=== PATIENT | male | born 1975 | race Caucasian/White ===

== ENCOUNTER 2020-09-29 14:27 | Emergency (ER) | payer OTHER ==
[2020-09-29] MEDS ORDERED: Sodium Chloride 0.9% 1000 ML 1,000 ML IV STA (15:01)
[2020-09-29] MEDS ORDERED: TORAdol 30 mg Injection IV ONE (15:03)
[2020-09-29] MEDS ORDERED: Sodium Chloride 0.9% 1000 ML 1,000 ML ONE (15:10)
[2020-09-29] MEDS ORDERED: TORAdol 30 mg Injection ONE (15:10)
[2020-09-29 15:40] LABS: Hematocrit 42.6 % (42-50); Hemoglobin 13.4 gm/dl (12.5-18.0); Mean Cell Volume 89.5 fl (78-100); Mean Corpuscular Hemoglobin 28.2 pg (26-32); Mean Corpuscular Hgb Concent. 31.5 g/dl (32-36); Mean Platelet Volume 12.4 fl (7.5-11.0); Platelet Count 284 K/mm3 (150-450); Red Blood Count 4.76 M/mm3 (4.1-5.6); Red Cell Distribution Width 14.9 % (11.5-14.0); White Blood Count 16.7 K/mm3 (4.0-10.5)
[2020-09-29 15:45] LABS: PROTIME 11.8 SECONDS (9.4-12.5)
[2020-09-29 15:49] LABS: ALBUMIN 4.3 g/dL (3.5-5.0); ALKALINE PHOSPHATASE 72 U/L (38-126); ANION GAP 14.4 MEQ/L (5-15); BLOOD UREA NITROGEN 13 mg/dL (9-20); CHLORIDE 103 mmol/L (98-107); Calcium 9.6 mg/dL (8.4-10.2); Carbon Dioxide 26 mmol/L (22-30); Creatinine 1 0.83 mg/dL (0.66-1.25); EST GLOMERULAR FILTRATION RATE > 60.0 ML/MIN; Glucose 96 mg/dL (74-106); Potassium 3.9 mmol/L (3.5-5.1); SGOT/AST 25 U/L (17-59); SGPT/ALT 17 U/L (0-50); SODIUM 140 mmol/L (137-145); Total Protein 7.2 g/dL (6.3-8.2)
[2020-09-29 16:51] LABS: ABO TYPING A; Antibody Screen NEGATIVE (NEGATIVE); RH TYPING POSITIVE
[2020-09-29 17:07] LABS: Lymphocytes 15 % (24-44); Monocyte 5 % (0.0-12.0); Neutrophils 80 % (36.-66.); Total Cells Counted 100
[2020-09-29 17:08] LABS: Platelet Estimate NORMAL (NORMAL)
[2020-09-29 17:47] VITALS: BP 111/68
[2020-09-29 18:02] VITALS: PULSE 93; O2SAT 100
[2020-09-29 18:05] LABS: Appearance CLEAR (CLEAR); Bilirubin NEGATIVE (NEGATIVE); Blood NEGATIVE Ery/ul (0-5); Glucose NEGATIVE (NEGATIVE); Ketones NEGATIVE (NEGATIVE); Leukocyte Esterase NEGATIVE (NEGATIVE); Mucus SLIGHT /HPF (NEGATIVE); Nitrite NEGATIVE (NEGATIVE); Protein,Urine Dip NEGATIVE (Negative); Urobilinogen NEGATIVE mg/dL (0-1); WBC 0-2 /HPF (0-5)
--- NOTE | 2020-09-29 18:05 | XRAY ---
Indication: Cough. Blood in stool. Comparison: March 28, 2020. Portable apical lordotic chest remains hyperinflated and clear. Heart not enlarged. Bony thorax intact. No new/acute findings.
--- NOTE | 2020-09-29 18:05 | XRAY ---
Indication: Right abdomen pain 2 weeks. Blood in stool. Multiple contiguous axial images obtained through the abdomen and pelvis without contrast. Comparison: November 07, 2011. Lung bases demonstrates minimal dependent atelectasis. No infiltrate or effusion. Heart is not enlarged. Stomach moderately fluid distended. Noncontrasted bowel loops appear nonobstructed. Normal appendix. No free fluid/air. There is again mild diffuse scattered colonic fecal debris throughout. A few nonobstructing punctate calculi in each kidney. Remaining liver, gallbladder, pancreas, spleen, adrenal glands, kidneys, ureters, bladder, and aorta are unremarkable for noncontrast exam. Osseous structures intact with new moderate L3-L4 degenerative disc disease. Impression: 1. Mild diffuse fecal stasis. 2. Nonobstructing bilateral renal punctate calculi. 3. Remaining CT abdomen/pelvis without contrast exam is negative. Comment: Preliminary interpretation was made by [facility]. No critical discrepancy.
--- NOTE | 2020-09-29 18:15 | ERPHSYRPT ---
- History of Present Illness Time Seen by Provider: 09/29/20 14:55 Historian: patient Exam Limitations: no limitations Patient Subjective Stated Complaint: back pain 3 weeks, bloody stools yesterday Triage Nursing Assessment: pt to ED Physician History: Patient is a 45-year-old male who presents with a complaint of back pain for 3 weeks along with some recent bloody stools. His back pain is worse on the right than the left his stool showed dark blood in the water but bright red blood on the paper. Timing/Duration: today (Woman started today), week(s) (He has had back pain for 3 weeks) Activities at Onset: none Quality: throbbing Abdominal Pain Onset Location: generalized abdomen Severity of Pain-Max: moderate Severity of Pain-Current: moderate Associated Symptoms: back (Pain especially in the right flank) Previous symptoms: no prior history Allergies/Adverse Reactions: acetaminophen [From Darvocet-N 100] Allergy (Mild, Verified 11/01/13 17:56) throat swelling propoxyphene napsylate [From Darvocet-N 100] Allergy (Mild, Verified 11/01/13 17:56) throat swelling sulfamethoxazole [From Bactrim DS] Allergy (Verified 11/01/13 17:56) trimethoprim [From Bactrim DS] Allergy (Verified 11/01/13 17:56) Home Medications: Amphet Asp/Amphet/D-Amphet [Adderall 30 mg Tablet] 30 mg PO DAILY 09/29/20 [History] Dextroamphetamine/Amphetamine [Adderall 10 mg Tablet] 10 mg PO DAILY 09/29/20 [History] Hx Tetanus, Diphtheria Vaccination/Date Given: Yes Hx Influenza Vaccination/Date Given: No Hx Pneumococcal Vaccination/Date Given: No Immunizations Up to Date: No Travel Risk - International Travel Have you traveled outside of the country in past 3 weeks: No - Coronavirus Screening Are you exhibiting any of the following symptoms?: No Close contact with a COVID-19 positive Pt in past 14-21 Days: No - Vaccine Status Have you recieved a Covid-19 vaccination: No - Review of Systems Constitutional: No Fever, No Chills Eyes: No Symptoms Ears, Nose, & Throat: No Symptoms Respiratory: No Cough, No Dyspnea Cardiac: No Chest Pain, No Edema, No Syncope Abdominal/Gastrointestinal: Hematochezia, No Abdominal Pain, No Nausea, No Vomiting, No Diarrhea Genitourinary Symptoms: Flank Pain, No Dysuria Musculoskeletal: Back Pain, No Neck Pain Skin: No Rash Neurological: No Dizziness, No Focal Weakness, No Sensory Changes Psychological: No Symptoms Endocrine: No Symptoms All Other Systems: Reviewed and Negative - Past Medical History Pertinent Past Medical History: Yes Neurological History: Peripheral Neuropathy ENT History: No Pertinent History Cardiac History: No Pertinent History Respiratory History: Asthma Endocrine Medical History: No Pertinent History Musculoskeletal History: Arthritis GI Medical History: No Pertinent History History: No Pertinent History Psycho-Social History: Depression, Other Male Reproductive Disorders: No Pertinent History Other Medical History: DENTAL CARIES/ABSCESS, ADHD - Past Surgical History Past Surgical History: Yes Neuro Surgical History: No Pertinent History Cardiac: No Pertinent History Respiratory: No Pertinent History Gastrointestinal: No Pertinent History Genitourinary: No Pertinent History Musculoskeletal: Orthopedic Surgery Male Surgical History: No Pertinent History Other Surgical History: VASECTOMY, carpal tunnel - Social History Smoking Status: Current every day smoker How long have you smoked: 20 YEARS Exposure to second hand smoke: No Drug Use: none Patient Lives Alone: No - Nursing Vital Signs Nursing Vital Signs: Initial Vital Signs Temperature 98.9 F 09/29/20 14:48 Pulse Rate 65 09/29/20 14:48 Respiratory Rate 18 09/29/20 14:48 Blood Pressure 128/64 09/29/20 14:48 O2 Sat by Pulse Oximetry 100 09/29/20 14:48 Pain Scale Pain Intensity 4 - Physical Exam General Appearance: mild distress, alert Eye Exam: PERRL/EOMI, eyes nml inspection Ears, Nose, Throat Exam: normal ENT inspection, pharynx normal, moist mucous membranes Neck Exam: normal inspection, non-tender, supple, full range of motion Respiratory Exam: normal breath sounds, lungs clear, No respiratory distress Cardiovascular Exam: regular rate/rhythm, normal heart sounds Gastrointestinal/Abdomen Exam: soft, No tenderness, No mass Rectal Exam: other (There are several external hemorrhoids some of which appear to have small bleeding sites.) Back Exam: normal inspection, CVA tenderness, vertebral tenderness, other (In the right flank.) Extremity Exam: normal inspection, normal range of motion, pelvis stable Neurologic Exam: alert, oriented x 3, cooperative, normal mood/affect, nml cerebellar function, sensation nml, No motor deficits Skin Exam: normal color, warm, dry SpO2: 100 - Course Nursing assessment & vital signs reviewed: Yes - CT Exams Abdomen/Pelvis CT Interpretation: Other (CT scan by our radiologist shows mild diffuse fecal stasis nonobstructing bilateral renal punctate calculi and remaining CT abdomen and pelvis without contrast exam is negative there is new moderate degenerative disease at 3 4.) Ordered Tests: Active Orders 24 hr Category Date Time Status ABDOMEN AND PELVIS W/0 CONTRAS [CT] Stat Exams 09/29/20 15:02 Completed CHEST 1 VIEW (PORTABLE) Stat Exams 09/29/20 15:50 Completed CBC W DIFF Stat Lab 09/29/20 15:25 Completed CMP Stat Lab 09/29/20 15:25 Completed FECAL OCCULT BLOOD - SCREENING Stat Lab 09/29/20 15:04 Ordered Lactic Acid Stat Lab 09/29/20 15:25 Completed Manual Differential NC Stat Lab 09/29/20 15:25 Completed PROTIME WITH INR Stat Lab 09/29/20 15:25 Completed UA W/RFX UR CULTURE Stat Lab 09/29/20 17:48 Completed Medication Summary Discontinued Medications Generic Name Dose Route Start Last Admin Trade Name Freq PRN Reason Stop Dose Admin Sodium Chloride 1,000 mls @ 999 mls/hr 09/29/20 15:01 09/29/20 17:54 Sodium Chloride 0.9% 1000 Ml IV 09/29/20 16:01 Infused .Q1H1M STA Infusion Sodium Chloride Confirm 09/29/20 15:10 Sodium Chloride 0.9% 1000 Ml Administered 09/29/20 15:11 Dose 1,000 mls @ ud .ROUTE .STK-MED ONE Ketorolac Tromethamine 30 mg 09/29/20 15:03 09/29/20 15:14 Toradol 30 Mg Injection IV 09/29/20 15:04 30 mg STAT ONE Administration Ketorolac Tromethamine Confirm 09/29/20 15:10 Toradol 30 Mg Injection Administered 09/29/20 15:11 Dose 30 mg .ROUTE .STK-MED ONE Lab/Rad Data: Laboratory Result Diagrams 09/29/20 15:25 09/29/20 15:25 Laboratory Results 09/29/20 09/29/20 09/29/20 Range/Units 17:48 15:25 15:25 WBC (4.0-10.5) K/mm3 RBC (4.1-5.6) M/mm3 Hgb (12.5-18.0) gm/dl Hct (42-50) % MCV (78-100) fl MCH (26-32) pg MCHC (32-36) g/dl RDW (11.5-14.0) % Plt Count (150-450) K/mm3 MPV (7.5-11.0) fl Segmented Neutrophils (36.-66.) % Lymphocytes (Manual) (24-44) % Monocytes (Manual) (0.0-12.0) % Platelet Estimate (NORMAL) RBC Morphology PT 11.8 (9.4-12.5) SECONDS INR 1.00 (0.8-3.0) Sodium (137-145) mmol/L Potassium (3.5-5.1) mmol/L Chloride (98-107) mmol/L Carbon Dioxide (22-30) mmol/L Anion Gap (5-15) MEQ/L BUN (9-20) mg/dL Creatinine (0.66-1.25) mg/dL Estimated GFR ML/MIN Glucose (74-106) mg/dL Lactic Acid (0.4-2.0) Calcium (8.4-10.2) mg/dL Total Bilirubin (0.2-1.3) mg/dL AST (17-59) U/L ALT (0-50) U/L Alkaline Phosphatase (38-126) U/L Serum Total Protein (6.3-8.2) g/dL Albumin (3.5-5.0) g/dL Urine Color YELLOW (YELLOW) Urine Appearance CLEAR (CLEAR) Urine pH 5.0 (5-6) Ur Specific [place] 1.020 (1.005-1.025) Urine Protein NEGATIVE (Negative) Urine Ketones NEGATIVE (NEGATIVE) Urine Blood NEGATIVE (0-5) Lonnie/ul Urine Nitrite NEGATIVE (NEGATIVE) Urine Bilirubin NEGATIVE (NEGATIVE) Urine Urobilinogen NEGATIVE (0-1) mg/dL Ur Leukocyte Esterase NEGATIVE (NEGATIVE) Urine WBC (Auto) 0-2 (0-5) /HPF Urine RBC (Auto) NONE (0-2) /HPF U Epithel Cells (Auto) NONE (FEW) /HPF Urine Bacteria (Auto) NONE (NEGATIVE) /HPF Urine Mucus (Auto) SLIGHT (NEGATIVE) /HPF Urine Culture Reflexed NO (NO) Urine Glucose NEGATIVE (NEGATIVE) mg/dL ABO Group A Rh Factor POSITIVE Antibody Screen NEGATIVE (NEGATIVE) 09/29/20 09/29/20 09/29/20 Range/Units 15:25 15:25 15:25 WBC 16.7 H (4.0-10.5) K/mm3 RBC 4.76 (4.1-5.6) M/mm3 Hgb 13.4 (12.5-18.0) gm/dl Hct 42.6 (42-50) % MCV 89.5 (78-100) fl MCH 28.2 (26-32) pg MCHC 31.5 L (32-36) g/dl RDW 14.9 H (11.5-14.0) % Plt Count 284 (150-450) K/mm3 MPV 12.4 H (7.5-11.0) fl Segmented Neutrophils 80 H (36.-66.) % Lymphocytes (Manual) 15 L (24-44) % Monocytes (Manual) 5 (0.0-12.0) % Platelet Estimate NORMAL (NORMAL) RBC Morphology NORMAL PT (9.4-12.5) SECONDS INR (0.8-3.0) Sodium 140 (137-145) mmol/L Potassium 3.9 (3.5-5.1) mmol/L Chloride 103 (98-107) mmol/L Carbon Dioxide 26 (22-30) mmol/L Anion Gap 14.4 (5-15) MEQ/L BUN 13 (9-20) mg/dL Creatinine 0.83 (0.66-1.25) mg/dL Estimated GFR > 60.0 ML/MIN Glucose 96 (74-106) mg/dL Lactic Acid 1.5 (0.4-2.0) Calcium 9.6 (8.4-10.2) mg/dL Total Bilirubin 0.30 (0.2-1.3) mg/dL AST 25 (17-59) U/L ALT 17 (0-50) U/L Alkaline Phosphatase 72 (38-126) U/L Serum Total Protein 7.2 (6.3-8.2) g/dL Albumin 4.3 (3.5-5.0) g/dL Urine Color (YELLOW) Urine Appearance (CLEAR) Urine pH (5-6) Ur Specific [place] (1.005-1.025) Urine Protein (Negative) Urine Ketones (NEGATIVE) Urine Blood (0-5) Lonnie/ul Urine Nitrite (NEGATIVE) Urine Bilirubin (NEGATIVE) Urine Urobilinogen (0-1) mg/dL Ur Leukocyte Esterase (NEGATIVE) Urine WBC (Auto) (0-5) /HPF Urine RBC (Auto) (0-2) /HPF U Epithel Cells (Auto) (FEW) /HPF Urine Bacteria (Auto) (NEGATIVE) /HPF Urine Mucus (Auto) (NEGATIVE) /HPF Urine Culture Reflexed (NO) Urine Glucose (NEGATIVE) mg/dL ABO Group Rh Factor Antibody Screen (NEGATIVE) - Progress Progress: unchanged - Departure Departure Disposition: Home Clinical Impression: Degenerative disc disease, Bleeding hemorrhoids Condition: Stable Critical Care Time: No Referrals: TIFFANY SHAY [Primary Care Provider] - Instructions: Low Back Pain (DC), Hemorrhoids (DC) Prescriptions: Hydrocortisone 2.5% 30 gm [Anusol-Hc 2.5% Cream 30 gm] 30 gm TP TID 30 Days #1 tube Ciprofloxacin [Cipro 500 MG] 500 mg PO BID #14 tablet Hydrocodone/Acetaminophen [Hydrocodone-Acetamin 10-325 mg] 1 each PO Q6H 3 Days #12 tablet MDD 4
== END 2020-09-29 18:46 | disposition home or self-care (01) ==
LOC: ED 14:27
DX: M51.36 Other intervertebral disc degeneration, lumbar region (principal); K64.9 Unspecified hemorrhoids
CPT/HCPCS: 36415; 71045; 74176; 80053; 81001; 83605; 85025; 85610; 86850; 86900; 86901; 96360; 96374; 99284; J1885

== ENCOUNTER 2020-11-14 23:48 | Emergency (ER) | payer OTHER ==
[2020-11-15 00:19] VITALS: O2SAT 98
[2020-11-15] MEDS ORDERED: TORAdol 30 mg Injection ONE (00:28)
[2020-11-15] MEDS: TORAdol 30 mg Injection IM ONE (00:43)
--- NOTE | 2020-11-15 00:44 | ERPHSYRPT ---
- History of Present Illness Time Seen by Provider: 11/14/20 23:50 Source: patient Exam Limitations: no limitations Patient Subjective Stated Complaint: Patient states " I have been moving all week lifting heavy items and yesterday I started having severe pain in my right arm/" Triage Nursing Assessment: Patient arrived to ED and ambulated back to room without difficulty. Patient A/O times 4. Patient able to follow instructions without difficulty. Patient states he does have Carpel Tunnel in right hand. Patient states when he goes to lift or pull he has sharp dull pains go throughout in right arm. + radial pulse noted to right upper extremity. No swelling noted or bruising or right arm. Patient denies any trauma or injury to arm. Patient able to wiggle all fingers and ROM WNL. Physician History: 45 years old male with history of ADD, bilateral carpal tunnel surgery at wrists presented in the ER with chief complaint of increasing pain right forearm muscles since yesterday. Patient reports he has been moving apartment and has been lifting heavy objects and started to have pain right forearm yesterday with gradual worsening, moderate to severe sharp nature, aggravated with palpation in the forearm muscles but denies any direct trauma or difficulty movements at wrist or elbow. Does have tingly sensations off and on in the hand and has recent fracture fifth digit right hand. Patient reports having similar pains off and on in the past as well with exertion. No weakness in the right upper extremity but what he has from his neuropathy before. Denies any chest pain palpitations or shortness of breath. Occurred: yesterday Quality: sharpness Severity of Pain-Max: moderate Severity of Pain-Current: moderate Extremities Pain Location: forearm: right Modifying Factors: Improves With: immobilization, rest. Worsens With: movement Associated Symptoms: none Allergies/Adverse Reactions: dicyclomine Allergy (Severe, Verified 11/15/20 00:20) Tightness of Throat acetaminophen [From Darvocet-N 100] Allergy (Mild, Verified 11/15/20 00:20) throat swelling propoxyphene napsylate [From Darvocet-N 100] Allergy (Mild, Verified 11/15/20 00:20) throat swelling sulfamethoxazole [From Bactrim DS] Allergy (Verified 11/15/20 00:20) Rash trimethoprim [From Bactrim DS] Allergy (Verified 11/15/20 00:20) Rash Home Medications: Amphet Asp/Amphet/D-Amphet [Adderall 30 mg Tablet] 30 mg PO BREAKFAST 10/11/20 [History] Dextroamphetamine/Amphetamine [Adderall 10 mg Tablet] 10 mg PO EVENING MEAL 10/11/20 [History] Hx Tetanus, Diphtheria Vaccination/Date Given: Yes Hx Influenza Vaccination/Date Given: No Hx Pneumococcal Vaccination/Date Given: No Immunizations Up to Date: Yes Travel Risk - International Travel Have you traveled outside of the country in past 3 weeks: No - Coronavirus Screening Are you exhibiting any of the following symptoms?: No Close contact with a COVID-19 positive Pt in past 14-21 Days: No - Vaccine Status Have you recieved a Covid-19 vaccination: No - Review of Systems Constitutional: No Symptoms Eyes: No Symptoms Ears, Nose, & Throat: No Symptoms Respiratory: No Symptoms Cardiac: No Symptoms Abdominal/Gastrointestinal: No Symptoms Genitourinary Symptoms: No Symptoms Musculoskeletal: Myalgias Skin: No Symptoms Neurological: No Symptoms Psychological: Anxiety Endocrine: No Symptoms Hematologic/Lymphatic: No Symptoms Immunological/Allergic: No Symptoms - Past Medical History Pertinent Past Medical History: Yes Neurological History: Peripheral Neuropathy ENT History: No Pertinent History Cardiac History: No Pertinent History Respiratory History: Asthma Endocrine Medical History: No Pertinent History Musculoskeletal History: Arthritis GI Medical History: No Pertinent History History: No Pertinent History Psycho-Social History: Depression, Other Male Reproductive Disorders: Other Other Medical History: DENTAL CARIES/ABSCESS, ADHD - Past Surgical History Past Surgical History: Yes Neuro Surgical History: No Pertinent History Cardiac: No Pertinent History Respiratory: No Pertinent History Gastrointestinal: No Pertinent History Genitourinary: No Pertinent History Musculoskeletal: Orthopedic Surgery Male Surgical History: No Pertinent History Other Surgical History: HX VASECTOMY, HX Carpal Tunnel - Social History Smoking Status: Current every day smoker How long have you smoked: 35 years Exposure to second hand smoke: Yes Drug Use: none Patient Lives Alone: No - Nursing Vital Signs Nursing Vital Signs: Initial Vital Signs Temperature 98.4 F 11/15/20 00:17 Pulse Rate 103 H 11/15/20 00:17 Respiratory Rate 18 11/15/20 00:17 Blood Pressure 129/96 11/15/20 00:17 O2 Sat by Pulse Oximetry 98 11/15/20 00:17 Pain Scale Pain Intensity 4 - Physical Exam General Appearance: no apparent distress, alert Neck Exam: normal inspection, supple, full range of motion Cardiovascular/Respiratory Exam: chest non-tender, normal breath sounds, regular rate/rhythm Elbow/Forearm Exam: normal inspection, no evidence of injury, normal ROM, soft tissue tenderness (Right forearm muscle tenderness. No bony tenderness.) Wrist Exam: non-tender, no evidence of injury, normal ROM Hand Exam: normal inspection, non-tender, no evidence of injury DTR - Upper Extremity Exam: bicep (R): 2+, bicep (L): 2+, tricep (R): 2+, tricep (L): 2+ Neuro/Tendon Exam: normal sensation, normal motor functions Mental Status Exam: alert, oriented x 3 Skin Exam: normal color SpO2 Interpretation: normal SpO2: 98 O2 Delivery: Room Air Ordered Tests: Medication Summary Discontinued Medications Generic Name Dose Route Start Last Admin Trade Name Domq PRN Reason Stop Dose Admin Ketorolac Tromethamine Confirm 11/15/20 00:28 Toradol 30 Mg Injection Administered 11/15/20 00:29 Dose 30 mg .ROUTE .STK-MED ONE Ketorolac Tromethamine 30 mg 11/15/20 00:42 11/15/20 00:43 Toradol 30 Mg Injection IM 11/15/20 00:43 30 mg STAT ONE Administration - Progress Progress: improved, pain not gone completely, re-examined Progress Note: 11/15/20 00:43 Patient symptoms are more of a musculoskeletal versus neuropathic with carpal tunnel at elbow. Given Toradol, recommended NSAIDs to go home and outpatient follow-up. Do not seem cardiac. No bony tenderness, do not think needs any imaging or work-up and is stable for discharge with outpatient follow-up. Discussed signs symptoms of worsening needing return to ER which he seems understanding. Counseled pt/family regarding: diagnosis, need for follow-up - Departure Departure Disposition: Home Clinical Impression: Right forearm pain Condition: Stable Critical Care Time: No Referrals: TIFFANY SHAY [Primary Care Provider] - Follow Up with PCP/3 days Instructions: Carpal Tunnel Syndrome (DC), Neuropathic Pain Additional Instructions: Take Tylenol/ibuprofen as needed for pain. Avoid exertional activities. Follow-up with your primary care physician for reevaluation. Return to ER for numbness weakness of right hand/wrist/arm. Prescriptions: Ibuprofen 600 mg PO Q6HPRN PRN 10 Days #20 tablet PRN Reason: Pain
[2020-11-15 01:08] VITALS: BP 125/88; PULSE 100
== END 2020-11-15 01:08 | disposition home or self-care (01) ==
LOC: ED 23:48
DX: M79.631 Pain in right forearm (principal); X50.0XXA Overexertion from strenuous movement or load, initial encounter; Y93.9 Activity, unspecified; Y92.9 Unspecified place or not applicable; Y99.9 Unspecified external cause status
CPT/HCPCS: 96372; 99283; J1885

== ENCOUNTER 2020-12-05 21:26 | Emergency (ER) | payer OTHER ==
[2020-12-05 21:55] VITALS: O2SAT 98
[2020-12-05] MEDS ORDERED: TORAdol 30 mg Injection ONE (22:24)
[2020-12-05] MEDS ORDERED: TORAdol 30 mg Injection IM ONE (22:24)
--- NOTE | 2020-12-05 22:24 | ERPHSYRPT ---
- History of Present Illness Time Seen by Provider: 12/05/20 21:55 Source: patient Exam Limitations: no limitations Patient Subjective Stated Complaint: pt states "I rolled my ankle on a carpet log." Triage Nursing Assessment: pt ambulated into the er; pt is axo x4; c/o left ankle injury; pt states 10/10 pain to left ankle; pt states that he rolled his ankle; left ankle is swollen and tender; good cap refill to LLE; strong pedal pulse to left foot; tachycardic Physician History: Patient is a 45-year-old male presents to our ED for evaluation of left ankle pain. Patient states he descended steps and rolled his left ankle. Injury occurred just prior to arrival. Pain rated 10 out of 10. Pain described as an ache that is well localized. No radiation. Pain worse with weightbearing and palpation. Pain improved with rest. No other injuries reported. Patient otherwise healthy. He voices no other complaints or concerns at this time. Method of Injury: twisted Occurred: just prior to arrival Quality: constant Severity of Pain-Max: moderate Severity of Pain-Current: mild Lower Extremities Pain: ankle: left Modifying Factors: Improves With: movement Associated Symptoms: none Allergies/Adverse Reactions: dicyclomine Allergy (Severe, Verified 12/05/20 21:46) Tightness of Throat acetaminophen [From Darvocet-N 100] Allergy (Mild, Verified 12/05/20 21:46) throat swelling propoxyphene napsylate [From Darvocet-N 100] Allergy (Mild, Verified 12/05/20 21:46) throat swelling sulfamethoxazole [From Bactrim DS] Allergy (Verified 12/05/20 21:46) Rash trimethoprim [From Bactrim DS] Allergy (Verified 12/05/20 21:46) Rash Hx Tetanus, Diphtheria Vaccination/Date Given: Yes Hx Influenza Vaccination/Date Given: No Hx Pneumococcal Vaccination/Date Given: No Travel Risk - International Travel Have you traveled outside of the country in past 3 weeks: No - Coronavirus Screening Are you exhibiting any of the following symptoms?: No Close contact with a COVID-19 positive Pt in past 14-21 Days: No - Vaccine Status Have you recieved a Covid-19 vaccination: No - Review of Systems Constitutional: No Symptoms, No Fever, No Chills Eyes: No Symptoms Ears, Nose, & Throat: No Symptoms Respiratory: No Symptoms, No Cough, No Dyspnea Cardiac: No Symptoms, No Chest Pain, No Edema, No Syncope Abdominal/Gastrointestinal: No Symptoms, No Abdominal Pain, No Nausea, No Vomiting, No Diarrhea Genitourinary Symptoms: No Symptoms, No Dysuria Musculoskeletal: No Symptoms, No Back Pain, No Neck Pain Skin: No Symptoms, No Rash Neurological: No Symptoms, No Dizziness, No Focal Weakness, No Sensory Changes Psychological: No Symptoms Endocrine: No Symptoms Hematologic/Lymphatic: No Symptoms Immunological/Allergic: No Symptoms All Other Systems: Reviewed and Negative - Past Medical History Pertinent Past Medical History: Yes Neurological History: Peripheral Neuropathy ENT History: No Pertinent History Cardiac History: No Pertinent History Respiratory History: Asthma Endocrine Medical History: No Pertinent History Musculoskeletal History: Arthritis GI Medical History: No Pertinent History History: No Pertinent History Psycho-Social History: Depression, Other Male Reproductive Disorders: Other Other Medical History: DENTAL CARIES/ABSCESS, ADHD - Past Surgical History Past Surgical History: Yes Neuro Surgical History: No Pertinent History Cardiac: No Pertinent History Respiratory: No Pertinent History Gastrointestinal: No Pertinent History Genitourinary: No Pertinent History Musculoskeletal: Orthopedic Surgery Male Surgical History: No Pertinent History Other Surgical History: HX VASECTOMY, HX Carpal Tunnel - Social History Smoking Status: Current every day smoker How long have you smoked: 35 years Exposure to second hand smoke: Yes Drug Use: none Patient Lives Alone: No - Nursing Vital Signs Nursing Vital Signs: Initial Vital Signs Temperature 98.4 F 12/05/20 21:47 Pulse Rate 114 H 12/05/20 21:47 Respiratory Rate 20 12/05/20 21:47 Blood Pressure 126/89 12/05/20 21:47 O2 Sat by Pulse Oximetry 98 12/05/20 21:47 Pain Scale Pain Intensity 10 - Physical Exam General Appearance: no apparent distress, alert Eyes, Ears, Nose, Throat Exam: moist mucous membranes Neck Exam: non-tender, supple Cardiovascular/Respiratory Exam: chest non-tender, normal breath sounds, regular rate/rhythm, no respiratory distress Gastrointestinal/Abdominal Exam: non-tender, soft, guarding Back Exam: normal inspection, No vertebral tenderness Hips Exam: bilateral: non-tender, normal inspection, normal range of motion, no evidence of injury Legs Exam: bilateral leg: non-tender, normal inspection, normal range of motion, no evidence of injury Knees Exam: bilateral knee: non-tender, normal inspection, normal range of motion, no evidence of injury Ankle Exam: right ankle: non-tender, normal inspection, normal range of motion, no evidence of injury, left ankle: pain, soft tissue tenderness, swelling, other (Left lower extremity neurovascular intact distally. Compartments are soft. Cap refill less than 2 seconds. There is swelling at the lateral malleolus. No open draining lesions.) Foot Exam: bilateral foot: non-tender, normal inspection, normal range of motion, no evidence of injury Neuro/Tendon Exam: normal sensation, normal motor functions Mental Status Exam: alert, oriented x 3, cooperative Skin Exam: normal color, warm, dry SpO2: 98 - Course Nursing assessment & vital signs reviewed: Yes - Radiology Exams Ankle X-ray Interpretation: Interpreted by me (left ankle swelling, no fracture or dislocations) Ordered Tests: Active Orders 24 hr Category Date Time Status Adan Bandage Application -[facility] STAT Care 12/05/20 22:23 Active ANKLE (3 VIEWS) Stat Exams 12/05/20 21:51 Taken - Progress Progress: improved Progress Note: Patient reassessed. Pain improved after administration of Toradol. X-ray is negative for fracture dislocation. There is soft tissue swelling over the lateral malleolus. Extremities neurovascular intact distally. Adan wrap applied. We will discharge patient home. Patient agrees to follow-up with his primary care doctor within 48 hours. [id number] analgesics as needed for pain control. Patient voices no other complaints concerns at this time. Will discharge home. 12/05/20 22:30 Portions of this note were created with voice recognition technology. There may be grammatical, spelling, punctuation or sound alike errors 12/05/20 22:31 Counseled pt/family regarding: diagnosis, need for follow-up, rad results - Departure Departure Disposition: Home Clinical Impression: Ankle sprain Condition: Stable Critical Care Time: No Referrals: TIFFANY SHAY [Primary Care Provider] - Additional Instructions: Discharge/Care Plan DAVINREBEKAHADRIANMAGNOLIASAMANTA YUEN was seen on 12/05/20 in the Emergency Room. The patient was counseled regarding Diagnosis,Lab results, Imaging studies, need for follow up and when to return to the Emergency Room. Prescriptions given: Discharge Note I have spoken with the patient and/or caregivers. I have explained the patient's condition, diagnosis and treatment plan based on the information available to me at this time. I have answered the patient's and/or caregiver's questions and addressed any concerns. The patient and/or caregivers have as good understanding of the patient's diagnosis, condition and treatment plan as can be expected at this point. The vital signs have been stable. The patient's condition is stable and appropriate for discharge from the emergency department. The patient will pursue further outpatient evaluation with the primary care physician or other designated or consulting physician as outlined in the discharge instructions. The patient and/or caregivers are agreeable to this plan of care and follow-up instructions have been explained in detail. The patient and/or caregivers have received these instruction. The patient/and or caregivers are aware that any significant change in condition or worsening of symptoms should prompt an immediate return to this or the closest emergency department or call 911.
[2020-12-05 22:32] VITALS: BP 129/94; PULSE 104
--- NOTE | 2020-12-06 08:44 | XRAY ---
Indication: Pain and swelling following injury. Comparison: None 3 view left ankle demonstrates mild anterolateral soft tissue swelling. Incidental tiny spurring distal tibia anteriorly and posterior calcaneus. No other bony, articular, or soft tissue abnormalities.
== END 2020-12-05 22:36 | disposition home or self-care (01) ==
LOC: ED 21:26
DX: S93.402A Sprain of unspecified ligament of left ankle, initial encounter (principal); M25.472 Effusion, left ankle; X50.1XXA Overexertion from prolonged static or awkward postures, initial encounter; Y93.01 Activity, walking, marching and hiking; Y92.9 Unspecified place or not applicable
CPT/HCPCS: 73610; 96372; 99284; J1885

== ENCOUNTER 2021-01-09 13:58 | Emergency (ER) | payer OTHER ==
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
[2021-01-09 14:11] VITALS: O2SAT 98
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
[2021-01-09 16:51] VITALS: BP 137/86; PULSE 107
== END 2021-01-09 16:51 | disposition home or self-care (01) ==
LOC: ED 13:58
DX: S00.93XA Contusion of unspecified part of head, initial encounter (principal); S00.81XA Abrasion of other part of head, initial encounter; S60.512A Abrasion of left hand, initial encounter; S60.511A Abrasion of right hand, initial encounter; S60.812A Abrasion of left wrist, initial encounter; R51.9 Headache, unspecified; Y04.8XXA Assault by other bodily force, initial encounter
CPT/HCPCS: 70450; 99284

== ENCOUNTER 2021-07-20 10:14 | Emergency (ER) | payer OTHER ==
[2021-07-20] MEDS ORDERED: XYLOCAINE 1%/Epi 1:100000 MDV 20 ML ONE (10:30)
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
[2021-07-20 11:41] VITALS: PULSE 88; O2SAT 98
[2021-07-20] MEDS ORDERED: XYLOCAINE 1%/Epi 1:100000 MDV 20 ML IJ ONE (12:05)
[2021-07-20] MEDS ORDERED: BACIGUENT PACKET TP ONE (12:06)
[2021-07-20] MEDS ORDERED: BACIGUENT PACKET ONE (12:07)
[2021-07-20 12:26] VITALS: BP 130/72
--- NOTE | 2021-07-20 22:26 | XRAY ---
Indication: Mandible laceration. Multiple contiguous axial images obtained through the facial bones. Sagittal and coronal reformatted images obtained. Comparison: None Patient is nearly edentulous. Left mandible soft tissue swelling with tiny subcutaneous emphysema favoring clinical reported laceration. Axial images negative for acute fracture, suspicious bony lesions, or radiopaque foreign body. Orbits including roof, pompa, and floors are intact. Minimal mucosal thickening both ethmoid sinuses. Remaining visualized paranasal sinuses and nasal passages are clear. Mild nasal septal deviation to the right. Visualized cervical spine intact with mild multilevel degenerative changes. Remaining visualized noncontrasted soft tissues including base of the brain unremarkable. Impression: 1. Left mandible soft tissue swelling/laceration. 2. Nasal septal deviation and minimal ethmoid sinus disease. 3. Remaining CT facial bones negative. Comment: Preliminary interpretation made by [facility]. No critical discrepancy.
== END 2021-07-20 12:36 | disposition home or self-care (01) ==
LOC: ED 10:14
DX: S01.81XA Laceration without foreign body of other part of head, initial encounter (principal); W20.8XXA Other cause of strike by thrown, projected or falling object, initial encounter; Y93.H3 Activity, building and construction; Y92.009 Unspecified place in unspecified non-institutional (private) residence as the place of occurrence of the external cause; R68.84 Jaw pain; Z72.0 Tobacco use; Z79.891 Long term (current) use of opiate analgesic
CPT/HCPCS: 12013; 70486; 96372; 99284; A9270-GY

== ENCOUNTER 2021-07-27 11:27 | Emergency (ER) | payer OTHER ==
[2021-07-27 11:39] VITALS: BP 126/78; PULSE 85; O2SAT 99
[2021-07-27] MEDS ORDERED: Ocuflox OPHTHALMIC 5 ML OP ONE (11:45)
[2021-07-27] MEDS ORDERED: Ocuflox OPHTHALMIC 5 ML OP SCH (11:45)
--- NOTE | 2021-07-27 11:46 | ERPHSYRPT ---
- History of Present Illness Time Seen by Provider: 07/27/21 11:30 Source: patient Exam Limitations: no limitations Patient Subjective Stated Complaint: Eye problem Triage Nursing Assessment: Patient ambulated back to ED and transferred to bed per self. Patient A+O X3. Patient's skin pink, warm and dry. Patient complains of marcos eye problems. 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 Patient states he woke up with red eyes that itch. Patient denies any recent injury or trauma. Marcos eyes noted to bed red with no drainage noted. Physician History: 46 years old presented in the ER with chief complaint of bilateral eye redness, matting and some discharge. Patient reports couple days ago he fell and cough feces area and probably got some in the eyes. He washed his really well but later on started to have itching and burning and last night noticed discharge and matting this morning. No obvious difficulty vision but increased light sensitivity. Timing/Duration: day(s) (2), gradual onset, worse Location: bilateral eyes Severity: moderate Apparent Injury: no Associated Symptoms: burning, itching, sensitivity to light, redness, matting, No eyelid swelling Chemical Exposure: No Allergies/Adverse Reactions: dicyclomine Allergy (Severe, Verified 07/27/21 11:32) Tightness of Throat acetaminophen [From Darvocet-N 100] Allergy (Mild, Verified 07/27/21 11:32) throat swelling propoxyphene napsylate [From Darvocet-N 100] Allergy (Mild, Verified 07/27/21 11:32) throat swelling sulfamethoxazole [From Bactrim DS] Allergy (Verified 07/27/21 11:32) Rash trimethoprim [From Bactrim DS] Allergy (Verified 07/27/21 11:32) Rash Hx Tetanus, Diphtheria Vaccination/Date Given: Yes Hx Influenza Vaccination/Date Given: No Hx Pneumococcal Vaccination/Date Given: No Immunizations Up to Date: Yes Travel Risk - International Travel Have you traveled outside of the country in past 3 weeks: No - Coronavirus Screening Are you exhibiting any of the following symptoms?: No Close contact with a COVID-19 positive Pt in past 14-21 Days: No - Vaccine Status Have you recieved a Covid-19 vaccination: No - Review of Systems Constitutional: No Symptoms Eyes: Eye Pain, Eye Redness, Itchy, Photophobia Ears, Nose, & Throat: No Symptoms Respiratory: No Symptoms Cardiac: No Symptoms Abdominal/Gastrointestinal: No Symptoms Musculoskeletal: No Symptoms Skin: No Symptoms Neurological: No Symptoms Endocrine: No Symptoms Hematologic/Lymphatic: No Symptoms - Past Medical History Pertinent Past Medical History: Yes Neurological History: Peripheral Neuropathy ENT History: No Pertinent History Cardiac History: No Pertinent History Respiratory History: Asthma Endocrine Medical History: No Pertinent History Musculoskeletal History: Arthritis GI Medical History: No Pertinent History History: No Pertinent History Psycho-Social History: Depression, Other Male Reproductive Disorders: Other Other Medical History: DENTAL CARIES/ABSCESS, ADHD - Past Surgical History Past Surgical History: Yes Neuro Surgical History: No Pertinent History Cardiac: No Pertinent History Respiratory: No Pertinent History Gastrointestinal: No Pertinent History Genitourinary: No Pertinent History Musculoskeletal: Orthopedic Surgery Male Surgical History: No Pertinent History Other Surgical History: HX VASECTOMY, HX Carpal Tunnel - Social History Smoking Status: Current every day smoker How long have you smoked: 35 years Exposure to second hand smoke: Yes Drug Use: none Patient Lives Alone: No - Nursing Vital Signs Nursing Vital Signs: Initial Vital Signs Temperature 97.9 F 07/27/21 11:33 Pulse Rate 85 07/27/21 11:33 Respiratory Rate 18 07/27/21 11:33 Blood Pressure 126/78 07/27/21 11:33 O2 Sat by Pulse Oximetry 99 07/27/21 11:33 Pain Scale Pain Intensity 0 - Physical Exam General Appearance: no apparent distress, alert, anxiety Vision Acuity Degree Evaluation Phase: Uncorrected Vision Acuity Right Eye: 20/70 Vision Acuity Left Eye: 20/30 Eye Exam: bilateral eye: PERRL, EOMI, conjunctival hemorrhage, conjunctival inflammation Ears, Nose, Throat Exam: normal ENT inspection, TMs normal, pharynx normal, moist mucous membranes Neck Exam: normal inspection, supple, full range of motion Respiratory Exam: normal breath sounds, lungs clear Cardiovascular Exam: regular rate/rhythm, normal heart sounds Extremity Exam: normal inspection, normal range of motion Neurologic: alert, oriented x 3, 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, 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 Outpatient follow-up. Counseled pt/family regarding: diagnosis, need for follow-up - Departure Departure Disposition: Home Clinical Impression: Bacterial conjunctivitis of both eyes Condition: Stable Critical Care Time: No Referrals: TIFFANY SHAY NP [Primary Care Provider] - Follow up/PCP as directed (Call tomorrow for reevaluation) Instructions: Conjunctivitis ([place]) (DC) Additional Instructions: Continue with antibiotic drops as recommended. Follow-up with primary care for reevaluation. Return to ER if having difficulty with vision, increasing redness, discharge, swelling around eyes, fever chills etc.
== END 2021-07-27 11:50 | disposition home or self-care (01) ==
LOC: ED 11:27
DX: H10.89 Other conjunctivitis (principal); Z72.0 Tobacco use
CPT/HCPCS: 99283; A9270-GY

== ENCOUNTER 2021-12-10 07:34 | Emergency (ER) | payer OTHER ==
--- NOTE | 2021-12-10 07:48 | ERPHSYRPT ---
- History of Present Illness Time Seen by Provider: 12/10/21 07:47 Source: patient, family Exam Limitations: no limitations Patient Subjective Stated Complaint: Pt c/o of right flank pain that radiates to the right quadrants Triage Nursing Assessment: Pt brought to the ER by his , hypertensive, rates pain as 10/10, can't get comfortable in the bed, woke with the pain in the middle of the night, pain to right flank that radiates to the right abdomen, denies pain with urination, pain with palpatation to the right flank and right quadrants, pulses normal, skin n/w/d, N&V, no other issues at this time Physician History: This patient is a 46-year-old white male who has a history of depression, asthma and peripheral neuropathy and presents with right flank pain of sudden onset in the middle the night with progressively worsening pain and radiation down to the right lower abdomen. He has never had any like this before. Patient also had associated nausea and vomiting. He denies chest pain. He denies shortness of breath. He has had no diarrhea symptoms. He denies fever. Patient states that he is allergic to the propoxyphene and Darvocet but not necessarily acetaminophen. He has taken [place] in the past. Timing/Duration: today Method of Injury: other (No injury) Quality: aching Back Pain Location: paraspinous muscles (Right flank) Severity of Pain-Max: moderate Severity of Pain-Current: moderate Modifying Factors: Improves With: nothing Associated Symptoms: nausea, vomiting, other (Right flank pain) Previous symptoms: no prior history Allergies/Adverse Reactions: dicyclomine Allergy (Severe, Verified 12/10/21 07:45) Tightness of Throat acetaminophen [From Darvocet-N 100] Allergy (Mild, Verified 12/10/21 07:45) throat swelling propoxyphene napsylate [From Darvocet-N 100] Allergy (Mild, Verified 12/10/21 07:45) throat swelling sulfamethoxazole [From Bactrim DS] Allergy (Verified 12/10/21 07:45) Rash trimethoprim [From Bactrim DS] Allergy (Verified 12/10/21 07:45) Rash Home Medications: Bupropion HCl 150 mg Sr [Wellbutrin SR 150 MG] 150 mg PO BID 12/10/21 [History] Hx Tetanus, Diphtheria Vaccination/Date Given: Yes Hx Influenza Vaccination/Date Given: No Hx Pneumococcal Vaccination/Date Given: No Travel Risk - International Travel Have you traveled outside of the country in past 3 weeks: No - Coronavirus Screening Are you exhibiting any of the following symptoms?: No Close contact with a COVID-19 positive Pt in past 14-21 Days: No - Vaccine Status Have you recieved a Covid-19 vaccination: No - Review of Systems Constitutional: No Symptoms Eyes: No Symptoms Ears, Nose, & Throat: No Symptoms Respiratory: No Symptoms Cardiac: No Symptoms Abdominal/Gastrointestinal: Abdominal Pain (Right lower abdomen) Genitourinary Symptoms: Flank Pain (Right) Musculoskeletal: No Symptoms Skin: No Symptoms Neurological: No Symptoms Psychological: No Symptoms Endocrine: No Symptoms Hematologic/Lymphatic: No Symptoms Immunological/Allergic: No Symptoms All Other Systems: Reviewed and Negative - Past Medical History Pertinent Past Medical History: Yes Neurological History: Peripheral Neuropathy ENT History: No Pertinent History Cardiac History: No Pertinent History Respiratory History: Asthma Endocrine Medical History: No Pertinent History Musculoskeletal History: Arthritis GI Medical History: No Pertinent History History: No Pertinent History Psycho-Social History: Depression, Other Male Reproductive Disorders: Other Other Medical History: DENTAL CARIES/ABSCESS, ADHD - Past Surgical History Past Surgical History: Yes Neuro Surgical History: No Pertinent History Cardiac: No Pertinent History Respiratory: No Pertinent History Gastrointestinal: No Pertinent History Genitourinary: No Pertinent History Musculoskeletal: Orthopedic Surgery Male Surgical History: No Pertinent History Other Surgical History: HX VASECTOMY, HX Carpal Tunnel - Social History Smoking Status: Current every day smoker How long have you smoked: 35 years Exposure to second hand smoke: Yes Drug Use: none Patient Lives Alone: No - Nursing Vital Signs Nursing Vital Signs: Initial Vital Signs Temperature 97.9 F 12/10/21 07:37 Pulse Rate 84 12/10/21 07:37 Blood Pressure 155/103 12/10/21 07:37 O2 Sat by Pulse Oximetry 99 12/10/21 07:37 Pain Scale Pain Intensity [Right Medial 10 Back] Pain Intensity 3 - Physical Exam General Appearance: mild distress, alert, anxiety, thin Eye Exam: PERRL/EOMI, eyes nml inspection Ears, Nose, Throat Exam: normal ENT inspection, moist mucous membranes Neck Exam: normal inspection, non-tender, supple, full range of motion Respiratory Exam: normal breath sounds, lungs clear, No chest tenderness, No respiratory distress Cardiovascular Exam: regular rate/rhythm, normal heart sounds, normal peripheral pulses Gastrointestinal Exam: soft, normal bowel sounds, tenderness (Right lower abdomen), No guarding, No rebound Rectal Exam: not done Back Exam: normal inspection, normal range of motion, CVA tenderness (Right flank) Extremity Exam: normal inspection, normal range of motion, pelvis stable Neurologic Exam: alert, oriented x 3, 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, 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, normal mood/affect, nml cerebellar function, nml station & gait, sensation nml Skin Exam: normal color, warm, dry Lymphatic Exam: No adenopathy SpO2 Interpretation: normal SpO2: 99 O2 Delivery: Room Air - Course Nursing assessment & vital signs reviewed: Yes EKG Interpreted by Me: RATE (96), Sinus Rhythm, NORMAL AXIS, NORMAL INTERVALS, NORMAL QRS, NORMAL ST-T, Other (No acute ischemic changes) Ordered Tests: Active Orders 24 hr Category Date Time Status EKG-ER Only STAT Care 12/10/21 08:02 Active IV Insertion STAT Care 12/10/21 07:48 Active ABDOMEN AND PELVIS W/0 CONTRAS [CT] Stat Exams 12/10/21 07:48 Completed AMYLASE Stat Lab 12/10/21 08:11 Completed CBC W DIFF Stat Lab 12/10/21 08:11 Completed CMP Stat Lab 12/10/21 08:11 Completed CULTURE,URINE Stat Lab 12/10/21 07:51 Received LIPASE Stat Lab 12/10/21 08:11 Completed UA W/RFX CULTURE Stat Lab 12/10/21 07:51 Completed Medication Summary Discontinued Medications Generic Name Dose Route Start Last Admin Trade Name Criselda PRN Reason Stop Dose Admin Hydromorphone HCl 1 mg 12/10/21 07:48 12/10/21 07:53 Hydromorphone 1 Mg/1ml Inj 1 Mg/Ml Syringe IV 12/10/21 07:49 1 mg STAT ONE Administration Hydromorphone HCl Confirm 12/10/21 07:52 Hydromorphone 1 Mg/1ml Inj 1 Mg/Ml Syringe Administered 12/10/21 07:53 Dose 1 mg .ROUTE .STK-MED ONE Sodium Chloride 1,000 mls @ 999 mls/hr 12/10/21 07:48 12/10/21 07:54 Sodium Chloride 0.9% 1000 Ml IV 12/10/21 08:48 999 mls/hr .Q1H1M STA Administration Sodium Chloride Confirm 12/10/21 07:52 Sodium Chloride 0.9% 1000 Ml Administered 12/10/21 07:53 Dose 1,000 mls @ ud .ROUTE .STK-MED ONE Piperacillin Sod/Tazobactam 100 mls @ 200 mls/hr 12/10/21 08:43 12/10/21 09:11 Sod 3.375 gm/ Sodium Chloride IV 12/10/21 09:12 200 mls/hr STAT ONE Administration Sodium Chloride 1,000 mls @ 999 mls/hr 12/10/21 08:48 12/10/21 09:11 Sodium Chloride 0.9% 1000 Ml IV 12/10/21 09:48 999 mls/hr .Q1H1M STA Administration Sodium Chloride Confirm 12/10/21 09:08 Sodium Chloride 0.9% 1000 Ml Administered 12/10/21 09:09 Dose 1,000 mls @ ud .ROUTE .STK-MED ONE Sodium Chloride Confirm 12/10/21 09:10 Sodium Chloride 100ml Mini-Bag Plus Administered 12/10/21 09:11 Dose 100 mls @ ud IV .STK-MED ONE Ketorolac Tromethamine 30 mg 12/10/21 07:48 12/10/21 07:53 Ketorolac Tromethamine 30 Mg/Ml Inj IV 12/10/21 07:49 30 mg STAT ONE Administration Ketorolac Tromethamine Confirm 12/10/21 07:52 Ketorolac Tromethamine 30 Mg/Ml Inj Administered 12/10/21 07:53 Dose 30 mg .ROUTE .STK-MED ONE Ondansetron HCl 4 mg 12/10/21 07:48 12/10/21 07:53 Ondansetron Hcl 4 Mg/2 Ml Vial IV 12/10/21 07:49 4 mg STAT ONE Administration Ondansetron HCl Confirm 12/10/21 07:52 Ondansetron Hcl 4 Mg/2 Ml Vial Administered 12/10/21 07:53 Dose 4 mg .ROUTE .STK-MED ONE Piperacillin Sod/Tazobactam Sod Confirm 12/10/21 09:08 Piperacillin/Tazobactam Sodium 3.375 Gm Vial Administered 12/10/21 09:09 Dose 3.375 gm IV .STK-MED ONE Lab/Rad Data: Laboratory Result Diagrams 12/10/21 08:11 12/10/21 08:11 Laboratory Results 12/10/21 12/10/21 12/10/21 Range/Units 08:53 08:11 08:11 WBC 20.1 H (4.0-10.5) x10^3/uL RBC 5.00 (4.1-5.6) x10^6/uL Hgb 15.1 (12.5-18.0) g/dL Hct 46.8 (42-50) % MCV 93.6 (78-100) fL MCH 30.2 (26-32) pg MCHC 32.3 (32-36) g/dL RDW 14.6 H (11.5-14.0) % Plt Count 208 (150-450) x10^3/uL MPV 12.3 H (7.5-11.0) fL Gran % 76.8 H (36.0-66.0) % Immature Gran % (Auto) 0.4 (0.00-0.4) % Nucleat RBC Rel Count 0.0 (0.00-0.1) % Eos # (Auto) 0.14 (0-0.5) x10^3/uL Immature Gran # (Auto) 0.09 H (0.00-0.03) x10^3u/L Absolute Lymphs (auto) 2.23 (1.0-4.6) x10^3/uL Absolute Monos (auto) 2.12 H (0.0-1.3) x10^3/uL Absolute Nucleated RBC 0.00 (0.00-0.01) x10^3u/L Lymphocytes % 11.1 L (24.0-44.0) % Monocytes % 10.6 (0.0-12.0) % Eosinophils % 0.7 (0.00-5.0) % Basophils % 0.4 (0.0-0.4) % Absolute Granulocytes 15.42 H (1.4-6.9) x10^3/uL Basophils # 0.08 (0-0.4) x10^3/uL Sodium 141 (137-145) mmol/L Potassium 4.1 (3.5-5.1) mmol/L Chloride 109 H (98-107) mmol/L Carbon Dioxide 25 (22-30) mmol/L Anion Gap 10.6 (5-15) MEQ/L BUN 15 (9-20) mg/dL Creatinine 1.38 H (0.66-1.25) mg/dL Estimated GFR 58.5 ML/MIN Glucose 117 H (74-106) mg/dL Calcium 9.2 (8.4-10.2) mg/dL Total Bilirubin 0.40 (0.2-1.3) mg/dL AST 29 (17-59) U/L ALT 18 (0-50) U/L Alkaline Phosphatase 59 (38-126) U/L Serum Total Protein 6.8 (6.3-8.2) g/dL Albumin 4.0 (3.5-5.0) g/dL Amylase 93 (30-110) U/L Lipase 72 (23-300) U/L Urinalys Dipstick Clnc Urine Color (YELLOW) Urine Appearance (CLEAR) Urine pH (5-6) Ur Specific [place] (1.005-1.025) POC Urine Protein Conf (Negative) Urine Ketones (NEGATIVE) Urine Nitrite (NEGATIVE) Urine Bilirubin (NEGATIVE) Urine Urobilinogen (0-1) mg/dL Urine Leukocytes (NEGATIVE) Urine WBC (Auto) (0-5) /HPF Urine RBC (Auto) (0-2) /HPF U Epithel Cells (Auto) (FEW) /HPF Urine Bacteria (Auto) (NEGATIVE) /HPF Urine RBC (0-5) Lonnie/ul Urine Mucus (Auto) (NEGATIVE) /HPF Ur Culture Indicated? Urine Glucose (NEGATIVE) mg/dL Influenza Type A Ag NEGATIVE (NEGATIVE) Influenza Type B Ag NEGATIVE (NEGATIVE) RSV (PCR) NEGATIVE (Negative) SARS-CoV-2 (PCR) NEGATIVE (NEGATIVE) 12/10/21 Range/Units 07:51 WBC (4.0-10.5) x10^3/uL RBC (4.1-5.6) x10^6/uL Hgb (12.5-18.0) g/dL Hct (42-50) % MCV (78-100) fL MCH (26-32) pg MCHC (32-36) g/dL RDW (11.5-14.0) % Plt Count (150-450) x10^3/uL MPV (7.5-11.0) fL Gran % (36.0-66.0) % Immature Gran % (Auto) (0.00-0.4) % Nucleat RBC Rel Count (0.00-0.1) % Eos # (Auto) (0-0.5) x10^3/uL Immature Gran # (Auto) (0.00-0.03) x10^3u/L Absolute Lymphs (auto) (1.0-4.6) x10^3/uL Absolute Monos (auto) (0.0-1.3) x10^3/uL Absolute Nucleated RBC (0.00-0.01) x10^3u/L Lymphocytes % (24.0-44.0) % Monocytes % (0.0-12.0) % Eosinophils % (0.00-5.0) % Basophils % (0.0-0.4) % Absolute Granulocytes (1.4-6.9) x10^3/uL Basophils # (0-0.4) x10^3/uL Sodium (137-145) mmol/L Potassium (3.5-5.1) mmol/L Chloride (98-107) mmol/L Carbon Dioxide (22-30) mmol/L Anion Gap (5-15) MEQ/L BUN (9-20) mg/dL Creatinine (0.66-1.25) mg/dL Estimated GFR ML/MIN Glucose (74-106) mg/dL Calcium (8.4-10.2) mg/dL Total Bilirubin (0.2-1.3) mg/dL AST (17-59) U/L ALT (0-50) U/L Alkaline Phosphatase (38-126) U/L Serum Total Protein (6.3-8.2) g/dL Albumin (3.5-5.0) g/dL Amylase (30-110) U/L Lipase (23-300) U/L Urinalys Dipstick Clnc MAIN LAB Urine Color YELLOW (YELLOW) Urine Appearance CLEAR (CLEAR) Urine pH 6.0 (5-6) Ur Specific [place] 1.010 (1.005-1.025) POC Urine Protein Conf 30 (Negative) Urine Ketones NEGATIVE (NEGATIVE) Urine Nitrite NEGATIVE (NEGATIVE) Urine Bilirubin NEGATIVE (NEGATIVE) Urine Urobilinogen 0.2 (0-1) mg/dL Urine Leukocytes NEGATIVE (NEGATIVE) Urine WBC (Auto) NONE (0-5) /HPF Urine RBC (Auto) 3-5 (0-2) /HPF U Epithel Cells (Auto) NONE (FEW) /HPF Urine Bacteria (Auto) NONE (NEGATIVE) /HPF Urine RBC TRACE-INTACT (0-5) Lonnie/ul Urine Mucus (Auto) SLIGHT (NEGATIVE) /HPF Ur Culture Indicated? YES Urine Glucose NEGATIVE (NEGATIVE) mg/dL Influenza Type A Ag (NEGATIVE) Influenza Type B Ag (NEGATIVE) RSV (PCR) (Negative) SARS-CoV-2 (PCR) (NEGATIVE) - Progress Progress: improved, pain not gone completely Progress Note: 12/10/21 08:46 CAT scan of the abdomen pelvis without contrast shows circumferential thickening of the small bowel loops with mild distention.? Enteritis. There is minimal bilateral perinephric stranding. ? Nephritis. No evidence of ureteral calculi. 12/10/21 09:49 Patient states that he is feeling much better. The plan for him is to infuse a second liter of fluid then reexamine him and if he has continued to improve we w ill send him home with a prescription for antiemetics, antibiotics and pain medication. Counseled pt/family regarding: lab results, diagnosis, need for follow-up, rad results - Departure Departure Disposition: Home Clinical Impression: Enteritis, Pyelonephritis Condition: Stable Critical Care Time: No Referrals: TIFFANY SHAY NP [Primary Care Provider] - Follow up/PCP as directed Additional Instructions: Drink plenty of fluids. Add ibuprofen 600 mg orally 3 times a day for the next 5 days. Take this with food. Take your antibiotics and other medication as prescribed. Return to the emergency department symptoms worsen. Follow-up with your primary care physician for further evaluation and management. Prescriptions: Hydrocodone/APAP 5/325 [[place] 5/325 mg] 1 each PO Q6H PRN PRN #6 tablet MDD 3 PRN Reason: Pain Ondansetron ODT 4 MG [Zofran Odt 4 mg] 4 mg PO Q6H PRN PRN #10 tablet PRN Reason: Vomiting Ciprofloxacin [Cipro 500 MG] 500 mg PO BID #14 tablet Metronidazole 500 mg [Flagyl 500 MG] 500 mg PO TID #21 tablet
[2021-12-10] MEDS ORDERED: Hydromorphone 1 mg/ml Injection ONE (07:52)
[2021-12-10] MEDS ORDERED: Zofran 4 MG/2 ML VIAL ONE (07:52)
[2021-12-10] MEDS ORDERED: Sodium Chloride 0.9% 1000 ML 1,000 ML ONE ×2 (07:52→09:08)
[2021-12-10] MEDS ORDERED: TORAdol 30 mg Injection ONE (07:52)
[2021-12-10] MEDS: Zofran 4 MG/2 ML VIAL IV ONE (07:53)
[2021-12-10] MEDS: Hydromorphone 1 mg/ml Injection IV ONE (07:53)
[2021-12-10] MEDS: TORAdol 30 mg Injection IV ONE (07:53)
[2021-12-10] MEDS: Sodium Chloride 0.9% 1000 ML 1,000 ML IV STA ×2 (07:54→09:11)
[2021-12-10 08:14] LABS: Absolute Neutrophil Ct (ANC) 15.42 x10^3/uL (1.4-6.9); Basophil (Absolute #) 0.08 x10^3/uL (0-0.4); Eosinophil % 0.7 % (0.00-5.0); Eosinophil (Absolute #) 0.14 x10^3/uL (0-0.5); Hematocrit 46.8 % (42-50); Hemoglobin 15.1 g/dL (12.5-18.0); Lymphocyte (Absolute #) 2.23 x10^3/uL (1.0-4.6); Lymphocytes % 11.1 % (24.0-44.0); Mean Cell Volume 93.6 fL (78-100); Mean Corpuscular Hemoglobin 30.2 pg (26-32); Mean Corpuscular Hgb Concent. 32.3 g/dL (32-36); Mean Platelet Volume 12.3 fL (7.5-11.0); Monocyte (Absolute #) 2.12 x10^3/uL (0.0-1.3); Monocytes % 10.6 % (0.0-12.0); Neutrophil % 76.8 % (36.0-66.0); Platelet Count 208 x10^3/uL (150-450); Red Cell Distribution Width 14.6 % (11.5-14.0); White Blood Count 20.1 x10^3/uL (4.0-10.5)
[2021-12-10 08:24] LABS: ANION GAP 10.6 MEQ/L (5-15); BILIRUBIN,TOTAL 0.4 mg/dL (0.2-1.3); Calcium 9.2 mg/dL (8.4-10.2); Creatinine 1 1.38 mg/dL (0.66-1.25); EST GLOMERULAR FILTRATION RATE 58.5 ML/MIN; Potassium 4.1 mmol/L (3.5-5.1); Total Protein 6.8 g/dL (6.3-8.2)
[2021-12-10 08:32] LABS: Appearance CLEAR (CLEAR); Bilirubin NEGATIVE (NEGATIVE); Dipstick done @ ? MAIN LAB; Glucose NEGATIVE (NEGATIVE); Ketones NEGATIVE (NEGATIVE); Mucus SLIGHT /HPF (NEGATIVE); Nitrite NEGATIVE (NEGATIVE); Protein,Urine Dip 30 (Negative); RBC TRACE-INTACT Ery/ul (0-5); Urobilinogen 0.2 mg/dL (0-1)
--- NOTE | 2021-12-10 08:39 | XRAY ---
Indication: Right flank pain. Nausea and vomiting. Multiple contiguous images obtained through the abdomen and pelvis without contrast. Comparison: September 29, 2020 Lung bases again demonstrates minimal dependent atelectasis. Heart not enlarged. Noncontrasted stomach and bowel loops appear nonobstructed. Several small bowel loops are now mildly fluid distended with circumferential wall thickening, possible enteritis in the right clinical setting. Normal appendix. No free fluid/air. There remains a few nonobstructing bilateral renal punctate calculi. Both kidneys now demonstrates minimal perinephric stranding, possible nephritis in the right clinical setting. Remaining liver, gallbladder, pancreas, spleen, adrenal glands, kidneys, ureters, bladder, and aorta are unremarkable for noncontrast exam. Osseous structures intact again with mild/moderate degenerative changes throughout the spine again greatest at L3-L4. Impression: 1. New mild fluid distended small bowel loops with wall thickening. Rule out enteritis. 2. New minimal bilateral perinephric stranding. Rule out nephritis. 3. Again nonobstructing bilateral renal micro-calculi.
[2021-12-10] MEDS ORDERED: PIPERACILLIN/TAZOBACTAM IV ONE (09:08)
[2021-12-10] MEDS ORDERED: Sodium Chloride 100ML MINI-BAG PLUS 100 ML IV ONE (09:10)
[2021-12-10] MEDS: PIPERACILLIN/TAZOBACTAM 3.375 GM in Sodium Chloride 100ML MINI-BAG PLUS 100 ML IV ONE (09:11)
[2021-12-10 09:13] LABS: Urine Cultured Indicated? YES
[2021-12-10 09:33] LABS: INFLUENZA A NEGATIVE (NEGATIVE); INFLUENZA B NEGATIVE (NEGATIVE); RESPIRATORY SYNCTIAL VIRUS NEGATIVE (Negative); SARS-CoV-2 Xpert Express NEGATIVE (NEGATIVE)
[2021-12-10 09:49] VITALS: PULSE 79
[2021-12-10 10:48] VITALS: BP 153/109; O2SAT 100
[2021-12-10 11:46] LABS: Slide Review 1 YES
== END 2021-12-10 10:56 | disposition home or self-care (01) ==
LOC: ED 07:34
DX: K52.9 Noninfective gastroenteritis and colitis, unspecified (principal); N12 Tubulo-interstitial nephritis, not specified as acute or chronic; R10.9 Unspecified abdominal pain; R11.2 Nausea with vomiting, unspecified; Z72.0 Tobacco use; Z79.891 Long term (current) use of opiate analgesic; Z79.899 Other long term (current) drug therapy; Z28.310 Unvaccinated for COVID-19
CPT/HCPCS: 0241U; 36415; 74176; 80053; 81015; 82150; 83690; 85025; 87086; 93005; 96360; 96361; 96365; 96374; 96375; 99284; J1170; J1885; J2405

== ENCOUNTER 2021-12-13 07:09 | Emergency (ER) | payer OTHER ==
[2021-12-13] MEDS ORDERED: Sodium Chloride 0.9% 1000 ML 1,000 ML IV STA ×2 (07:22→08:23)
[2021-12-13] MEDS ORDERED: Zofran 4 MG/2 ML VIAL IV ONE (07:22)
[2021-12-13] MEDS ORDERED: PROTONIX 40 MG IV IV ONE ×2 (07:22→07:29)
[2021-12-13] MEDS ORDERED: Hydromorphone 1 mg/ml Injection IV ONE (07:22)
[2021-12-13] MEDS ORDERED: Sodium Chloride 0.9% 1000 ML 1,000 ML ONE ×2 (07:29→08:56)
[2021-12-13] MEDS ORDERED: Hydromorphone 1 mg/ml Injection ONE (07:29)
[2021-12-13] MEDS ORDERED: Zofran 4 MG/2 ML VIAL ONE (07:29)
--- NOTE | 2021-12-13 07:29 | ERPHSYRPT ---
- History of Present Illness Time Seen by Provider: 12/13/21 07:15 Historian: patient Exam Limitations: no limitations Patient Subjective Stated Complaint: pt co pain to lower back, he was seen in er last week for same thing, and has been taking meds, vomited yesterday, and states he is coughed up blood this morning Triage Nursing Assessment: pt alert, walked in, resp easy, skin w/d/p. moving around in bed to get comfortable, face mask in place, has dry cough Physician History: This is a 46-year-old white male patient of Jessy Gutierrez nurse practitioner who was evaluated in our emergency department on 12/10/2021 and was diagnosed with enteritis and bilateral nephritis. He was placed on [place], Zofran, Cipro, Flagyl medication which she has been taking per his report. However after improvement during the first 1 to 2 days after his evaluation in the emergency department on 12/10/2021, patient's symptoms are worsening including worsening bilateral flank pain and vomiting. He also states he vomited up a small amount of blood. Patient has appointment to see his primary care provider on 12/16/2021. Patient has a history of depression, asthma and peripheral neuropathy. Timing/Duration: yesterday Activities at Onset: none Quality: aching Abdominal Pain Onset Location: flank (Bilateral flank) Pain Radiation: no radiation Severity of Pain-Max: moderate Severity of Pain-Current: moderate Modifying Factors: Improves With: vomiting (Small amount of blood) Associated Symptoms: nausea, vomiting Previous symptoms: same symptoms as today, recently seen, recently treated Allergies/Adverse Reactions: dicyclomine Allergy (Severe, Verified 12/13/21 07:23) Tightness of Throat acetaminophen [From Darvocet-N 100] Allergy (Mild, Verified 12/13/21 07:23) throat swelling propoxyphene napsylate [From Darvocet-N 100] Allergy (Mild, Verified 12/13/21 07:23) throat swelling sulfamethoxazole [From Bactrim DS] Allergy (Verified 12/13/21 07:23) Rash trimethoprim [From Bactrim DS] Allergy (Verified 12/13/21 07:23) Rash Home Medications: Bupropion HCl 150 mg Sr [Wellbutrin SR 150 MG] 150 mg PO BID 12/10/21 [History] Hx Tetanus, Diphtheria Vaccination/Date Given: Yes Hx Influenza Vaccination/Date Given: No Hx Pneumococcal Vaccination/Date Given: No Immunizations Up to Date: Yes Travel Risk - International Travel Have you traveled outside of the country in past 3 weeks: No - Coronavirus Screening Are you exhibiting any of the following symptoms?: No Close contact with a COVID-19 positive Pt in past 14-21 Days: No - Vaccine Status Have you recieved a Covid-19 vaccination: No - Review of Systems Constitutional: No Symptoms Eyes: No Symptoms Ears, Nose, & Throat: No Symptoms Respiratory: Other (Mild, single episode of hemoptysis) Cardiac: No Symptoms Abdominal/Gastrointestinal: Nausea, Vomiting Genitourinary Symptoms: No Symptoms Musculoskeletal: No Symptoms Skin: No Symptoms Neurological: No Symptoms Psychological: No Symptoms Endocrine: No Symptoms Hematologic/Lymphatic: No Symptoms Immunological/Allergic: No Symptoms All Other Systems: Reviewed and Negative - Past Medical History Pertinent Past Medical History: Yes Neurological History: Peripheral Neuropathy ENT History: No Pertinent History Cardiac History: No Pertinent History Respiratory History: Asthma Endocrine Medical History: No Pertinent History Musculoskeletal History: Arthritis GI Medical History: No Pertinent History History: No Pertinent History Psycho-Social History: Depression, Other Male Reproductive Disorders: Other Other Medical History: DENTAL CARIES/ABSCESS, ADHD - Past Surgical History Past Surgical History: Yes Neuro Surgical History: No Pertinent History Cardiac: No Pertinent History Respiratory: No Pertinent History Gastrointestinal: No Pertinent History Genitourinary: No Pertinent History Musculoskeletal: Orthopedic Surgery Male Surgical History: No Pertinent History Other Surgical History: HX VASECTOMY, HX Carpal Tunnel - Social History Smoking Status: Current every day smoker How long have you smoked: 35 years Exposure to second hand smoke: Yes Drug Use: none Patient Lives Alone: No - Nursing Vital Signs Nursing Vital Signs: Initial Vital Signs Temperature 98.0 F 12/13/21 07:15 Pulse Rate 99 H 12/13/21 07:15 Respiratory Rate 18 12/13/21 07:15 Blood Pressure 158/108 12/13/21 07:15 O2 Sat by Pulse Oximetry 98 12/13/21 07:15 Pain Scale Pain Intensity 2 - Physical Exam General Appearance: mild distress, alert, anxiety, thin Eye Exam: PERRL/EOMI, eyes nml inspection Ears, Nose, Throat Exam: normal ENT inspection, moist mucous membranes Neck Exam: normal inspection, non-tender, supple, full range of motion Respiratory Exam: normal breath sounds, lungs clear, airway intact, No chest tenderness, No respiratory distress Cardiovascular Exam: regular rate/rhythm, normal heart sounds, normal peripheral pulses Gastrointestinal/Abdomen Exam: soft, normal bowel sounds, other (Pain is bilateral flank more than abdominal pain), No tenderness Rectal Exam: not done Back Exam: normal inspection, normal range of motion, CVA tenderness (Bilateral), No vertebral tenderness Extremity Exam: normal inspection, normal range of motion, pelvis stable Neurologic Exam: alert, oriented x 3, cooperative, oil treater II-XII nml as tested, normal mood/affect, nml cerebellar function, nml station & gait, sensation nml Skin Exam: normal color, warm, dry Lymphatic Exam: adenopathy SpO2 Interpretation: normal SpO2: 98 O2 Delivery: Room Air - Course Nursing assessment & vital signs reviewed: Yes Ordered Tests: Active Orders 24 hr Category Date Time Status IV Insertion STAT Care 12/13/21 07:22 Active ABDOMEN AND PELVIS W/0 CONTRAS [CT] Stat Exams 12/13/21 07:22 Taken AMYLASE Stat Lab 12/13/21 07:40 Completed BLOOD CULTURE Stat Lab 12/13/21 07:22 Ordered CBC W DIFF Stat Lab 12/13/21 07:40 Completed CMP Stat Lab 12/13/21 07:40 Completed LIPASE Stat Lab 12/13/21 07:40 Completed Lactic Acid Stat Lab 12/13/21 07:22 Completed UA W/RFX CULTURE Stat Lab 12/13/21 08:15 Completed Medication Summary Discontinued Medications Generic Name Dose Route Start Last Admin Trade Name Criselda PRN Reason Stop Dose Admin Hydromorphone HCl 1 mg 12/13/21 07:22 12/13/21 07:37 Hydromorphone 1 Mg/1ml Inj 1 Mg/Ml Syringe IV 12/13/21 07:23 1 mg STAT ONE Administration Hydromorphone HCl Confirm 12/13/21 07:29 Hydromorphone 1 Mg/1ml Inj 1 Mg/Ml Syringe Administered 12/13/21 07:30 Dose 1 mg .ROUTE .STK-MED ONE Sodium Chloride 1,000 mls @ 999 mls/hr 12/13/21 07:22 12/13/21 09:13 Sodium Chloride 0.9% 1000 Ml IV 12/13/21 08:22 Infused .Q1H1M STA Infusion Sodium Chloride Confirm 12/13/21 07:29 Sodium Chloride 0.9% 1000 Ml Administered 12/13/21 07:30 Dose 1,000 mls @ ud .ROUTE .STK-MED ONE Sodium Chloride 1,000 mls @ 999 mls/hr 12/13/21 08:23 12/13/21 09:54 Sodium Chloride 0.9% 1000 Ml IV 12/13/21 09:23 999 mls/hr .Q1H1M STA Administration Sodium Chloride Confirm 12/13/21 08:56 Sodium Chloride 0.9% 1000 Ml Administered 12/13/21 08:57 Dose 1,000 mls @ ud .ROUTE .STK-MED ONE Ketorolac Tromethamine Confirm 12/13/21 09:02 Ketorolac Tromethamine 30 Mg/Ml Inj Administered 12/13/21 09:03 Dose 30 mg .ROUTE .STK-MED ONE Ketorolac Tromethamine 30 mg 12/13/21 09:03 12/13/21 09:15 Ketorolac Tromethamine 30 Mg/Ml Inj IV 12/13/21 09:04 30 mg STAT ONE Administration Ondansetron HCl 4 mg 12/13/21 07:22 12/13/21 07:38 Ondansetron Hcl 4 Mg/2 Ml Vial IV 12/13/21 07:23 4 mg STAT ONE Administration Ondansetron HCl Confirm 12/13/21 07:29 Ondansetron Hcl 4 Mg/2 Ml Vial Administered 12/13/21 07:30 Dose 4 mg .ROUTE .STK-MED ONE Pantoprazole Sodium 40 mg 12/13/21 07:22 12/13/21 07:38 Pantoprazole 40 Mg Vial IV 12/13/21 07:23 40 mg STAT ONE Administration Pantoprazole Sodium Confirm 12/13/21 07:29 Pantoprazole 40 Mg Vial Administered 12/13/21 07:30 Dose 40 mg IV .STK-MED ONE Lab/Rad Data: Laboratory Result Diagrams 12/13/21 07:40 12/13/21 07:40 Laboratory Results 12/13/21 12/13/21 12/13/21 Range/Units 08:15 07:40 07:40 WBC 13.6 H (4.0-10.5) x10^3/uL RBC 4.94 (4.1-5.6) x10^6/uL Hgb 14.9 (12.5-18.0) g/dL Hct 45.9 (42-50) % MCV 92.9 (78-100) fL MCH 30.2 (26-32) pg MCHC 32.5 (32-36) g/dL RDW 13.9 (11.5-14.0) % Plt Count 225 (150-450) x10^3/uL MPV 12.3 H (7.5-11.0) fL Gran % 74.9 H (36.0-66.0) % Immature Gran % (Auto) 0.4 (0.00-0.4) % Nucleat RBC Rel Count 0.0 (0.00-0.1) % Eos # (Auto) 0.26 (0-0.5) x10^3/uL Immature Gran # (Auto) 0.05 H (0.00-0.03) x10^3u/L Absolute Lymphs (auto) 1.99 (1.0-4.6) x10^3/uL Absolute Monos (auto) 1.03 (0.0-1.3) x10^3/uL Absolute Nucleated RBC 0.00 (0.00-0.01) x10^3u/L Lymphocytes % 14.7 L (24.0-44.0) % Monocytes % 7.6 (0.0-12.0) % Eosinophils % 1.9 (0.00-5.0) % Basophils % 0.5 (0.0-0.4) % Absolute Granulocytes 10.18 H (1.4-6.9) x10^3/uL Basophils # 0.07 (0-0.4) x10^3/uL Sodium 139 (137-145) mmol/L Potassium 3.9 (3.5-5.1) mmol/L Chloride 107 (98-107) mmol/L Carbon Dioxide 26 (22-30) mmol/L Anion Gap 10.5 (5-15) MEQ/L BUN 15 (9-20) mg/dL Creatinine 1.35 H (0.66-1.25) mg/dL Estimated GFR 60.0 ML/MIN Glucose 100 (74-106) mg/dL Lactic Acid (0.4-2.0) Calcium 8.9 (8.4-10.2) mg/dL Total Bilirubin 0.40 (0.2-1.3) mg/dL AST 27 (17-59) U/L ALT 16 (0-50) U/L Alkaline Phosphatase 59 (38-126) U/L Serum Total Protein 6.8 (6.3-8.2) g/dL Albumin 4.0 (3.5-5.0) g/dL Amylase 80 (30-110) U/L Lipase 53 (23-300) U/L Urinalys Dipstick Clnc MAIN LAB Urine Color LT.YELLOW (YELLOW) Urine Appearance CLEAR (CLEAR) Urine pH 7.0 (5-6) Ur Specific [place] 1.015 (1.005-1.025) POC Urine Protein Conf NEGATIVE (Negative) Urine Ketones NEGATIVE (NEGATIVE) Urine Nitrite NEGATIVE (NEGATIVE) Urine Bilirubin NEGATIVE (NEGATIVE) Urine Urobilinogen 0.2 (0-1) mg/dL Urine Leukocytes NEGATIVE (NEGATIVE) Urine WBC (Auto) 3-5 (0-5) /HPF Urine RBC (Auto) 6-10 (0-2) /HPF U Epithel Cells (Auto) NONE (FEW) /HPF Urine Bacteria (Auto) NONE (NEGATIVE) /HPF Urine RBC TRACE NON-HEM (0-5) Lonnie/ul Ur Culture Indicated? NO Urine Glucose NEGATIVE (NEGATIVE) mg/dL 12/13/21 Range/Units 07:22 WBC (4.0-10.5) x10^3/uL RBC (4.1-5.6) x10^6/uL Hgb (12.5-18.0) g/dL Hct (42-50) % MCV (78-100) fL MCH (26-32) pg MCHC (32-36) g/dL RDW (11.5-14.0) % Plt Count (150-450) x10^3/uL MPV (7.5-11.0) fL Gran % (36.0-66.0) % Immature Gran % (Auto) (0.00-0.4) % Nucleat RBC Rel Count (0.00-0.1) % Eos # (Auto) (0-0.5) x10^3/uL Immature Gran # (Auto) (0.00-0.03) x10^3u/L Absolute Lymphs (auto) (1.0-4.6) x10^3/uL Absolute Monos (auto) (0.0-1.3) x10^3/uL Absolute Nucleated RBC (0.00-0.01) x10^3u/L Lymphocytes % (24.0-44.0) % Monocytes % (0.0-12.0) % Eosinophils % (0.00-5.0) % Basophils % (0.0-0.4) % Absolute Granulocytes (1.4-6.9) x10^3/uL Basophils # (0-0.4) x10^3/uL Sodium (137-145) mmol/L Potassium (3.5-5.1) mmol/L Chloride (98-107) mmol/L Carbon Dioxide (22-30) mmol/L Anion Gap (5-15) MEQ/L BUN (9-20) mg/dL Creatinine (0.66-1.25) mg/dL Estimated GFR ML/MIN Glucose (74-106) mg/dL Lactic Acid 1.1 (0.4-2.0) Calcium (8.4-10.2) mg/dL Total Bilirubin (0.2-1.3) mg/dL AST (17-59) U/L ALT (0-50) U/L Alkaline Phosphatase (38-126) U/L Serum Total Protein (6.3-8.2) g/dL Albumin (3.5-5.0) g/dL Amylase (30-110) U/L Lipase (23-300) U/L Urinalys Dipstick Clnc Urine Color (YELLOW) Urine Appearance (CLEAR) Urine pH (5-6) Ur Specific [place] (1.005-1.025) POC Urine Protein Conf (Negative) Urine Ketones (NEGATIVE) Urine Nitrite (NEGATIVE) Urine Bilirubin (NEGATIVE) Urine Urobilinogen (0-1) mg/dL Urine Leukocytes (NEGATIVE) Urine WBC (Auto) (0-5) /HPF Urine RBC (Auto) (0-2) /HPF U Epithel Cells (Auto) (FEW) /HPF Urine Bacteria (Auto) (NEGATIVE) /HPF Urine RBC (0-5) Lonnie/ul Ur Culture Indicated? Urine Glucose (NEGATIVE) mg/dL - Progress Progress: improved, pain not gone completely, re-examined Progress Note: 12/13/21 09:48 CAT scan of the abdomen pelvis without contrast shows improvement in the bilateral renal nephritis. There is also improvement in the enteritis. This CAT scan was compared to the CAT scan of the abdomen pelvis without contrast performed on 12/10/2021. 12/13/21 10:39 Patient states that he is feeling much better. He is hungry and thirsty. Counseled pt/family regarding: lab results, diagnosis, need for follow-up, rad results - Departure Departure Disposition: Home Clinical Impression: Nephritis, Enteritis Condition: Stable Critical Care Time: No Referrals: TIFFANY GUTIERREZ NP [Primary Care Provider] - Follow up/PCP as directed Additional Instructions: Drink plenty of clear liquids. Advance your diet slowly. May use Aleve as discussed for additional pain control. Continue your antibiotics as prescribed. Keep your appointment with your primary provider on 12/16/2021. Prescriptions: Hydrocodone/APAP 5/325 [[place] 5/325 mg] 1 each PO Q8H PRN PRN #10 tablet MDD 3 PRN Reason: Pain
[2021-12-13 07:47] LABS: Absolute Neutrophil Ct (ANC) 10.18 x10^3/uL (1.4-6.9); Basophil (Absolute #) 0.07 x10^3/uL (0-0.4); Eosinophil % 1.9 % (0.00-5.0); Eosinophil (Absolute #) 0.26 x10^3/uL (0-0.5); Hematocrit 45.9 % (42-50); Hemoglobin 14.9 g/dL (12.5-18.0); Lymphocyte (Absolute #) 1.99 x10^3/uL (1.0-4.6); Lymphocytes % 14.7 % (24.0-44.0); Mean Cell Volume 92.9 fL (78-100); Mean Corpuscular Hemoglobin 30.2 pg (26-32); Mean Corpuscular Hgb Concent. 32.5 g/dL (32-36); Mean Platelet Volume 12.3 fL (7.5-11.0); Monocyte (Absolute #) 1.03 x10^3/uL (0.0-1.3); Monocytes % 7.6 % (0.0-12.0); Neutrophil % 74.9 % (36.0-66.0); Platelet Count 225 x10^3/uL (150-450); Red Blood Count 4.94 x10^6/uL (4.1-5.6); Red Cell Distribution Width 13.9 % (11.5-14.0); White Blood Count 13.6 x10^3/uL (4.0-10.5)
[2021-12-13 08:02] LABS: ANION GAP 10.5 MEQ/L (5-15); BILIRUBIN,TOTAL 0.4 mg/dL (0.2-1.3); Calcium 8.9 mg/dL (8.4-10.2); Creatinine 1 1.35 mg/dL (0.66-1.25); Potassium 3.9 mmol/L (3.5-5.1); Total Protein 6.8 g/dL (6.3-8.2)
[2021-12-13] MEDS ORDERED: TORAdol 30 mg Injection ONE (09:02)
[2021-12-13] MEDS ORDERED: TORAdol 30 mg Injection IV ONE (09:03)
[2021-12-13 09:05] LABS: Appearance CLEAR (CLEAR); Bilirubin NEGATIVE (NEGATIVE); Dipstick done @ ? MAIN LAB; Glucose NEGATIVE (NEGATIVE); Ketones NEGATIVE (NEGATIVE); Nitrite NEGATIVE (NEGATIVE); Protein,Urine Dip NEGATIVE (Negative); RBC TRACE NON-HEM Ery/ul (0-5); Specific Gravity 1.015 (1.005-1.025); Urobilinogen 0.2 mg/dL (0-1)
[2021-12-13 09:08] LABS: Urine Cultured Indicated? NO
[2021-12-13 09:22] VITALS: BP 153/95
[2021-12-13 10:09] VITALS: PULSE 68
[2021-12-13 10:42] VITALS: O2SAT 98
--- NOTE | 2021-12-13 21:29 | XRAY ---
Indication: Low back and right flank pain. Enteritis and nephritis. Multiple contiguous axial images obtained through the abdomen and pelvis without contrast. Comparison: December 10, 2021 Lung bases clear. Heart is not enlarged. Noncontrasted stomach and bowel loops again demonstrates mild small bowel wall thickening, possible enteritis in the right clinical setting. No free fluid/air. Again nonobstructing bilateral renal punctate calculi. Remaining liver, gallbladder, pancreas, spleen, adrenal glands, kidneys, ureters, bladder, and aorta are unremarkable for noncontrast exam. Impression: 1. Again mild small bowel wall thickening. Rule out enteritis. 2. Again nonobstructing bilateral renal punctate calculi. 3. Remaining CT abdomen/pelvis without contrast exam is negative. Comment: Preliminary interpretation made by [facility]. No critical discrepancy.
== END 2021-12-13 11:00 | disposition home or self-care (01) ==
LOC: ED 07:09
DX: N05.9 Unspecified nephritic syndrome with unspecified morphologic changes (principal); K52.9 Noninfective gastroenteritis and colitis, unspecified; R10.9 Unspecified abdominal pain; K92.0 Hematemesis; Z72.0 Tobacco use; Z79.891 Long term (current) use of opiate analgesic; Z79.899 Other long term (current) drug therapy; Z28.310 Unvaccinated for COVID-19
CPT/HCPCS: 36415; 74176; 80053; 81015; 82150; 83605; 83690; 85025; 87040; 96360; 96374; 96375; 99284; J1170; J1885; J2405

== ENCOUNTER 2021-12-16 18:49 | Emergency (ER) | payer OTHER ==
[2012-11-30 02:15] VITALS: BP 120/78
[2021-12-17] MEDS ORDERED: LIPITOR 40MG ONE (01:12)
== END 2021-12-16 19:26 | disposition left against medical advice (07) ==
LOC: ED 18:49
DX: Z53.21 Procedure and treatment not carried out due to patient leaving prior to being seen by health care provider (principal)
CPT/HCPCS: A9270-GY

== ENCOUNTER 2021-12-16 20:42 | Emergency (ER) | payer OTHER ==
[2021-12-16] MEDS ORDERED: Sodium Chloride 0.9% 1000 ML 1,000 ML IV STA (21:42)
[2021-12-16 22:21] LABS: Absolute Neutrophil Ct (ANC) 14.65 x10^3/uL (1.4-6.9); Basophil (Absolute #) 0.06 x10^3/uL (0-0.4); Eosinophil % 0.2 % (0.00-5.0); Eosinophil (Absolute #) 0.03 x10^3/uL (0-0.5); Hematocrit 47.8 % (42-50); Hemoglobin 15.6 g/dL (12.5-18.0); Lymphocyte (Absolute #) 1.24 x10^3/uL (1.0-4.6); Lymphocytes % 7.4 % (24.0-44.0); Mean Cell Volume 91.2 fL (78-100); Mean Corpuscular Hemoglobin 29.8 pg (26-32); Mean Corpuscular Hgb Concent. 32.6 g/dL (32-36); Mean Platelet Volume 12.4 fL (7.5-11.0); Monocyte (Absolute #) 0.65 x10^3/uL (0.0-1.3); Monocytes % 3.9 % (0.0-12.0); Neutrophil % 87.7 % (36.0-66.0); Platelet Count 264 x10^3/uL (150-450); Red Blood Count 5.24 x10^6/uL (4.1-5.6); Red Cell Distribution Width 13.8 % (11.5-14.0); White Blood Count 16.7 x10^3/uL (4.0-10.5)
[2021-12-16] MEDS ORDERED: Zofran 4 MG/2 ML VIAL IV ONE (22:23)
[2021-12-16] MEDS ORDERED: Sodium Chloride 0.9% 1000 ML 1,000 ML ONE (22:25)
[2021-12-16] MEDS ORDERED: Zofran 4 MG/2 ML VIAL ONE (22:25)
[2021-12-16 22:35] LABS: ALBUMIN 4.5 g/dL (3.5-5.0); ALKALINE PHOSPHATASE 62 U/L (38-126); ANION GAP 13.6 MEQ/L (5-15); BLOOD UREA NITROGEN 11 mg/dL (9-20); CHLORIDE 105 mmol/L (98-107); Calcium 10.2 mg/dL (8.4-10.2); Carbon Dioxide 23 mmol/L (22-30); Creatinine 1 0.87 mg/dL (0.66-1.25); EST GLOMERULAR FILTRATION RATE > 60.0 ML/MIN; Glucose 156 mg/dL (74-106); LIPASE 38 U/L (23-300); Potassium 4.3 mmol/L (3.5-5.1); SGOT/AST 38 U/L (17-59); SGPT/ALT 25 U/L (0-50); SODIUM 137 mmol/L (137-145); Total Protein 7.5 g/dL (6.3-8.2)
[2021-12-16] MEDS ORDERED: Ntg 0.2MG/Ml in D5W GLASS*** 250 ML IV PRN (23:33)
[2021-12-16] MEDS ORDERED: BABY ASPIRIN 81 MG CHEW PO ONE (23:34)
--- NOTE | 2021-12-16 23:38 | ERPHSYRPT ---
- History of Present Illness Time Seen by Provider: 12/16/21 21:10 Historian: patient Exam Limitations: no limitations Patient Subjective Stated Complaint: abd pain and flank pain Triage Nursing Assessment: Pt ambulated into ER without diff, at bedside. Pt c/o upper abd pain and flank pain since 330pm today. Pt has had nausea, vomiting and diarrhea, indigestion and burping. Abd soft with active bs x 4 quad, tender on palpation. Pt is unable to sit still, up and down, laying across the bed, squatting down, etc. Physician History: Patient is a 46-year-old male presents to emergency department for evaluation of epigastric pain. Epigastric pain started at 330 this afternoon. Pain associated with nausea vomiting diarrhea. Patient states he is experiencing some indigestion and is burping continuously. Pain tends to radiate into his flank. No trauma. No fever. No rash. Symptoms are moderate in intensity. No specific worsening improving factors. Patient voices no other complaints or concerns at this time. Timing/Duration: today Activities at Onset: none Quality: aching Abdominal Pain Onset Location: epigastric Pain Radiation: other (Pain tends to radiate to both flanks.) Severity of Pain-Max: moderate Severity of Pain-Current: mild Modifying Factors: Improves With: nothing Associated Symptoms: diarrhea, nausea, vomiting, No chest pain, No neck pain, No shortness of breath Previous symptoms: no prior history Allergies/Adverse Reactions: dicyclomine Allergy (Severe, Verified 12/16/21 21:14) Tightness of Throat acetaminophen [From Darvocet-N 100] Allergy (Mild, Verified 12/16/21 21:14) throat swelling propoxyphene napsylate [From Darvocet-N 100] Allergy (Mild, Verified 12/16/21 21:14) throat swelling sulfamethoxazole [From Bactrim DS] Allergy (Verified 12/16/21 21:14) Rash trimethoprim [From Bactrim DS] Allergy (Verified 12/16/21 21:14) Rash Home Medications: Bupropion HCl 150 mg Sr [Wellbutrin SR 150 MG] 150 mg PO BID 12/10/21 [History] Hx Tetanus, Diphtheria Vaccination/Date Given: Yes Hx Influenza Vaccination/Date Given: No Hx Pneumococcal Vaccination/Date Given: No Immunizations Up to Date: Yes Travel Risk - International Travel Have you traveled outside of the country in past 3 weeks: No - Coronavirus Screening Are you exhibiting any of the following symptoms?: Yes Symptoms: Vomiting/Diarrhea Close contact with a COVID-19 positive Pt in past 14-21 Days: No - Vaccine Status Have you recieved a Covid-19 vaccination: No - Review of Systems Constitutional: No Symptoms, No Fever, No Chills Eyes: No Symptoms Ears, Nose, & Throat: No Symptoms Respiratory: No Symptoms, No Cough, No Dyspnea Cardiac: No Symptoms, No Chest Pain, No Edema, No Syncope Abdominal/Gastrointestinal: No Symptoms, No Abdominal Pain, No Nausea, No Vomiting, No Diarrhea Genitourinary Symptoms: No Symptoms, No Dysuria Musculoskeletal: No Symptoms, No Back Pain, No Neck Pain Skin: No Symptoms, No Rash Neurological: No Symptoms, No Dizziness, No Focal Weakness, No Sensory Changes Psychological: No Symptoms Endocrine: No Symptoms Hematologic/Lymphatic: No Symptoms Immunological/Allergic: No Symptoms All Other Systems: Reviewed and Negative - Past Medical History Pertinent Past Medical History: Yes Neurological History: Peripheral Neuropathy ENT History: No Pertinent History Cardiac History: No Pertinent History Respiratory History: Asthma Endocrine Medical History: No Pertinent History Musculoskeletal History: Arthritis GI Medical History: No Pertinent History History: No Pertinent History Psycho-Social History: Depression, Other Male Reproductive Disorders: Other Other Medical History: DENTAL CARIES/ABSCESS, ADHD - Past Surgical History Past Surgical History: Yes Neuro Surgical History: No Pertinent History Cardiac: No Pertinent History Respiratory: No Pertinent History Gastrointestinal: No Pertinent History Genitourinary: No Pertinent History Musculoskeletal: Orthopedic Surgery Male Surgical History: No Pertinent History Other Surgical History: HX VASECTOMY, HX Carpal Tunnel - Social History Smoking Status: Current every day smoker How long have you smoked: 35 years Exposure to second hand smoke: Yes Drug Use: none Patient Lives Alone: No - Nursing Vital Signs Nursing Vital Signs: Initial Vital Signs Temperature 97.8 F 12/16/21 21:03 Pulse Rate 95 H 12/16/21 21:03 Respiratory Rate 18 12/16/21 21:03 Blood Pressure 161/108 12/16/21 21:03 O2 Sat by Pulse Oximetry 97 12/16/21 21:03 Pain Scale Pain Intensity 5 - Physical Exam General Appearance: no apparent distress, alert Eye Exam: PERRL/EOMI, eyes nml inspection Ears, Nose, Throat Exam: normal ENT inspection, TMs normal, pharynx normal, moist mucous membranes Neck Exam: normal inspection, non-tender, supple, full range of motion Respiratory Exam: normal breath sounds, lungs clear, airway intact, No respiratory distress Cardiovascular Exam: regular rate/rhythm, normal heart sounds, normal peripheral pulses Gastrointestinal/Abdomen Exam: soft, normal bowel sounds, No tenderness, No mass Back Exam: normal inspection, normal range of motion, No CVA tenderness, No vertebral tenderness Extremity Exam: normal inspection, normal range of motion, pelvis stable Neurologic Exam: alert, oriented x 3, cooperative, normal mood/affect, nml cerebellar function, sensation nml, No motor deficits Skin Exam: normal color, warm, dry Lymphatic Exam: No adenopathy SpO2 Interpretation: normal SpO2: 97 O2 Delivery: Room Air - Course Nursing assessment & vital signs reviewed: Yes EKG Interpreted by Me: RATE (82), Sinus Rhythm (Some ST depression at V5 and V6. No STEMI), NORMAL AXIS, NORMAL INTERVALS - CT Exams Abdomen/Pelvis CT Interpretation: Tele-radiologist Report (Prominent fluid in the small bowel with dilation may reflect enteritis. Urinary bladder wall thickening likely due to nondistention a cystitis may be a consideration. Left basilar 4.4 mm pulmonary nodule. Constipation) Ordered Tests: Active Orders 24 hr Category Date Time Status EKG-ER Only STAT Care 12/16/21 21:42 Active IV Insertion STAT Care 12/16/21 21:42 Active ABDOMEN AND PELVIS W CONTRAST [CT] Stat Exams 12/16/21 21:42 Taken CBC W DIFF Stat Lab 12/16/21 22:19 Completed CMP Stat Lab 12/16/21 22:19 Completed LIPASE Stat Lab 12/16/21 22:19 Completed PROTIME WITH INR Stat Lab 12/16/21 23:37 Completed PTT Stat Lab 12/16/21 23:37 Completed TROPONIN Q4H Lab 12/16/21 22:19 Completed TROPONIN Q4H Lab 12/17/21 01:41 Completed TROPONIN Q4H Lab 12/17/21 05:45 Ordered Urine Triage Profile Stat Lab 12/17/21 00:05 Completed Medication Summary Generic Name Dose Route Start Last Admin Trade Name Freq PRN Reason Stop Dose Admin Nitroglycerin/Dextrose 250 mls @ 1.5 mls/hr 12/16/21 23:33 Ntg 0.2mg/Ml In D5w Glass IV 01/15/22 23:32 .Q24H PRN CHEST PAIN Protocol 5 MCG/MIN Heparin Sodium/Dextrose 25,000 units in 250 mls @ 6.36 mls/hr 12/17/21 01:30 12/17/21 00:57 Heparin 25,000 Units/D5w 250ml Premix IV 01/16/22 01:29 6.36 ml/hr .Q24H PHANI 6.36 mls/hr Administration Discontinued Medications Generic Name Dose Route Start Last Admin Trade Name Criselda PRN Reason Stop Dose Admin Aspirin 324 mg 12/16/21 23:34 12/17/21 00:52 Aspirin 81 Mg Tab.Chew PO 12/16/21 23:35 324 mg STAT ONE Administration Aspirin Confirm 12/17/21 00:22 Aspirin 81 Mg Tab.Chew Administered 12/17/21 00:23 Dose 324 mg .ROUTE .STK-MED ONE Atorvastatin Calcium 80 mg 12/17/21 00:51 12/17/21 01:12 Atorvastatin Calcium 40 Mg Tablet PO 12/17/21 00:52 80 mg STAT STA Administration Heparin Sodium (Beef Lung) Confirm 12/17/21 00:22 Heparin 5000 Unit/0.5 Ml Syringe Administered 12/17/21 00:23 Dose 5,000 unit .ROUTE .STK-MED ONE Heparin Sodium (Beef Lung) 3,180 unit 12/17/21 01:07 12/17/21 00:57 Heparin 5000 Unit/0.5 Ml Syringe IV 12/17/21 01:08 3,180 unit STAT ONE Administration Sodium Chloride 1,000 mls @ 999 mls/hr 12/16/21 21:42 12/16/21 22:27 Sodium Chloride 0.9% 1000 Ml IV 12/16/21 22:42 999 mls/hr .Q1H1M STA Administration Sodium Chloride Confirm 12/16/21 22:25 Sodium Chloride 0.9% 1000 Ml Administered 12/16/21 22:26 Dose 1,000 mls @ ud .ROUTE .STK-MED ONE Heparin Sodium/Dextrose Confirm 12/17/21 00:23 Heparin 25,000 Units/D5w 250ml Premix Administered 12/17/21 00:24 Dose 25,000 units in 250 mls @ ud IV .STK-MED ONE Sodium Chloride 1,000 mls @ 999 mls/hr 12/17/21 02:15 12/17/21 02:20 Sodium Chloride 0.9% 1000 Ml IV 12/17/21 03:15 999 mls/hr .Q1H1M STA Administration Sodium Chloride Confirm 12/17/21 02:17 Sodium Chloride 0.9% 1000 Ml Administered 12/17/21 02:18 Dose 1,000 mls @ ud .ROUTE .STK-MED ONE Ondansetron HCl 4 mg 12/16/21 22:23 12/16/21 22:27 Ondansetron Hcl 4 Mg/2 Ml Vial IV 12/16/21 22:24 4 mg STAT ONE Administration Ondansetron HCl Confirm 12/16/21 22:25 Ondansetron Hcl 4 Mg/2 Ml Vial Administered 12/16/21 22:26 Dose 4 mg .ROUTE .STK-MED ONE Lab/Rad Data: Laboratory Result Diagrams 12/16/21 22:19 12/16/21 22:19 Laboratory Results 12/17/21 12/17/21 12/16/21 Range/Units 01:41 00:05 23:37 WBC (4.0-10.5) x10^3/uL RBC (4.1-5.6) x10^6/uL Hgb (12.5-18.0) g/dL Hct (42-50) % MCV (78-100) fL MCH (26-32) pg MCHC (32-36) g/dL RDW (11.5-14.0) % Plt Count (150-450) x10^3/uL MPV (7.5-11.0) fL Gran % (36.0-66.0) % Immature Gran % (Auto) (0.00-0.4) % Nucleat RBC Rel Count (0.00-0.1) % Eos # (Auto) (0-0.5) x10^3/uL Immature Gran # (Auto) (0.00-0.03) x10^3u/L Absolute Lymphs (auto) (1.0-4.6) x10^3/uL Absolute Monos (auto) (0.0-1.3) x10^3/uL Absolute Nucleated RBC (0.00-0.01) x10^3u/L Lymphocytes % (24.0-44.0) % Monocytes % (0.0-12.0) % Eosinophils % (0.00-5.0) % Basophils % (0.0-0.4) % Absolute Granulocytes (1.4-6.9) x10^3/uL Basophils # (0-0.4) x10^3/uL PT 11.4 (9.4-12.5) SECONDS INR 1.08 (0.8-3.0) APTT 26.6 (25.1-36.5) SECONDS Sodium (137-145) mmol/L Potassium (3.5-5.1) mmol/L Chloride (98-107) mmol/L Carbon Dioxide (22-30) mmol/L Anion Gap (5-15) MEQ/L BUN (9-20) mg/dL Creatinine (0.66-1.25) mg/dL Estimated GFR ML/MIN Glucose (74-106) mg/dL Calcium (8.4-10.2) mg/dL Total Bilirubin (0.2-1.3) mg/dL AST (17-59) U/L ALT (0-50) U/L Alkaline Phosphatase (38-126) U/L Troponin I 1.040 H* (0.000-0.034) ng/mL Serum Total Protein (6.3-8.2) g/dL Albumin (3.5-5.0) g/dL Lipase (23-300) U/L Urine Opiates Level POSITIVE (NEGATIVE) Ur Methadone NEGATIVE (NEGATIVE) Urine Barbiturates NEGATIVE (NEGATIVE) Ur Phencyclidine (PCP) NEGATIVE (NEGATIVE) Urine Amphetamine NEGATIVE (NEGATIVE) U Benzodiazepine Level NEGATIVE (NEGATIVE) Urine Cocaine NEGATIVE (NEGATIVE) Urine Marijuana (THC) NEGATIVE (NEGATIVE) 12/16/21 12/16/21 12/16/21 Range/Units 22:19 22:19 22:19 WBC 16.7 H (4.0-10.5) x10^3/uL RBC 5.24 (4.1-5.6) x10^6/uL Hgb 15.6 (12.5-18.0) g/dL Hct 47.8 (42-50) % MCV 91.2 (78-100) fL MCH 29.8 (26-32) pg MCHC 32.6 (32-36) g/dL RDW 13.8 (11.5-14.0) % Plt Count 264 (150-450) x10^3/uL MPV 12.4 H (7.5-11.0) fL Gran % 87.7 H (36.0-66.0) % Immature Gran % (Auto) 0.4 (0.00-0.4) % Nucleat RBC Rel Count 0.0 (0.00-0.1) % Eos # (Auto) 0.03 (0-0.5) x10^3/uL Immature Gran # (Auto) 0.07 H (0.00-0.03) x10^3u/L Absolute Lymphs (auto) 1.24 (1.0-4.6) x10^3/uL Absolute Monos (auto) 0.65 (0.0-1.3) x10^3/uL Absolute Nucleated RBC 0.00 (0.00-0.01) x10^3u/L Lymphocytes % 7.4 L (24.0-44.0) % Monocytes % 3.9 (0.0-12.0) % Eosinophils % 0.2 (0.00-5.0) % Basophils % 0.4 (0.0-0.4) % Absolute Granulocytes 14.65 H (1.4-6.9) x10^3/uL Basophils # 0.06 (0-0.4) x10^3/uL PT (9.4-12.5) SECONDS INR (0.8-3.0) APTT (25.1-36.5) SECONDS Sodium 137 (137-145) mmol/L Potassium 4.3 (3.5-5.1) mmol/L Chloride 105 (98-107) mmol/L Carbon Dioxide 23 (22-30) mmol/L Anion Gap 13.6 (5-15) MEQ/L BUN 11 (9-20) mg/dL Creatinine 0.87 (0.66-1.25) mg/dL Estimated GFR > 60.0 ML/MIN Glucose 156 H (74-106) mg/dL Calcium 10.2 (8.4-10.2) mg/dL Total Bilirubin 0.60 (0.2-1.3) mg/dL AST 38 (17-59) U/L ALT 25 (0-50) U/L Alkaline Phosphatase 62 (38-126) U/L Troponin I 0.157 H* (0.000-0.034) ng/mL Serum Total Protein 7.5 (6.3-8.2) g/dL Albumin 4.5 (3.5-5.0) g/dL Lipase 38 (23-300) U/L Urine Opiates Level (NEGATIVE) Ur Methadone (NEGATIVE) Urine Barbiturates (NEGATIVE) Ur Phencyclidine (PCP) (NEGATIVE) Urine Amphetamine (NEGATIVE) U Benzodiazepine Level (NEGATIVE) Urine Cocaine (NEGATIVE) Urine Marijuana (THC) (NEGATIVE) - Progress Progress: improved Progress Note: 12/17/21 00:[address] Ron Gomez hospitalist at [facility] who accepts transfer. We are currently awaiting a bed assignment. Case discussed with Dr. Rao floater operator at [facility] who accepts transfer. Who agrees with management. We are awaiting a bed assignment. Spoke to Dr. Collazo, hospitalist from [facility] who excepts transfer. 12/17/21 02:17 We were notified of a bed assignment at approximately 2:45 AM Patient agrees to transfer to [facility] for further evaluation and treatment. Patient disclaimer 12/17/21 03:30 Counseled pt/family regarding: lab results, diagnosis, rad results - Departure Departure Disposition: Transfer Clinical Impression: NSTEMI (non-ST elevated myocardial infarction), Enteritis, Pulmonary nodule, Constipation, Leukocytosis, Acute coronary syndrome Condition: Stable Critical Care Time: No Referrals: CHARITY MANNING [Primary Care Provider] - Follow up/PCP as directed
[2021-12-16 23:51] LABS: INR 1.08 (0.8-3.0); PROTIME 11.4 SECONDS (9.4-12.5); PTT 26.6 SECONDS (25.1-36.5)
[2021-12-17] MEDS ORDERED: Heparin 5000 UNITS/0.5 ML (HIGH RISK MED) ONE (00:22)
[2021-12-17] MEDS ORDERED: BABY ASPIRIN 81 MG CHEW ONE (00:22)
[2021-12-17] MEDS ORDERED: Heparin 25,000 units/D5W 250ML PREMIX 25,000 UNITS/250 ML BAG IV ONE (00:23)
[2021-12-17] MEDS ORDERED: Ntg 0.2MG/Ml in D5W GLASS*** 250 ML IV ONE (00:26)
[2021-12-17 00:35] LABS: Amphetamine,Urine NEGATIVE (NEGATIVE); Barbiturate,Urine NEGATIVE (NEGATIVE); Benzodiazepine,Urine NEGATIVE (NEGATIVE); Cocaine,Urine NEGATIVE (NEGATIVE); Methadone,Urine NEGATIVE (NEGATIVE); Opiate,Urine POSITIVE (NEGATIVE); PCP,Urine NEGATIVE (NEGATIVE); THC,Urine NEGATIVE (NEGATIVE)
[2021-12-17] MEDS ORDERED: LIPITOR 40MG PO STA (00:51)
[2021-12-17] MEDS ORDERED: Heparin 5000 UNITS/0.5 ML (HIGH RISK MED) IV ONE (01:07)
[2021-12-17] MEDS ORDERED: Heparin 25,000 units/D5W 250ML PREMIX 25,000 UNITS/250 ML BAG IV SCH (01:30)
[2021-12-17] MEDS ORDERED: Sodium Chloride 0.9% 1000 ML 1,000 ML IV STA (02:15)
[2021-12-17] MEDS ORDERED: Sodium Chloride 0.9% 1000 ML 1,000 ML ONE (02:17)
[2021-12-17 03:34] VITALS: O2SAT 97
[2021-12-17 03:35] VITALS: BP 108/79; PULSE 71
--- NOTE | 2021-12-17 08:48 | XRAY ---
Indication: Right abdomen/flank pain. Nausea and vomiting. Multiple contiguous axial images obtained through the abdomen and pelvis using 80 cc Isovue 370 contrast. Comparison: December 10 and December 13, 2021 Lung bases remain clear of infiltrate and effusion. Heart not enlarged. Stomach is mildly distended with food. Noncontrasted stomach and bowel loops nonobstructed. A few small bowel loops again mildly fluid distended with mild circumferential wall thickening, less than before. Enteritis again offered for clinical consideration. No free fluid/air. Normal air-filled appendix. Contracted gallbladder without gallstones. Previous renal micro-calculi not seen on today's contrasted exam. Remaining liver, pancreas, spleen, adrenal glands, kidneys, ureters, bladder, and aorta are unremarkable. No pathologic retroperitoneal lymphadenopathy. Impression: 1. Again mild fluid distended small bowel loops with circumferential wall thickening, less than before. Again rule out enteritis. 2. Remaining CT abdomen/pelvis with contrast exam is negative. The Comment: Preliminary interpretation made by [facility]. No critical discrepancy.
== END 2021-12-17 03:33 | disposition short-term general hospital (02) ==
LOC: ED 20:42
DX: I21.4 Non-ST elevation (NSTEMI) myocardial infarction (principal); I24.9 Acute ischemic heart disease, unspecified; K52.9 Noninfective gastroenteritis and colitis, unspecified; R91.1 Solitary pulmonary nodule; K59.00 Constipation, unspecified; D72.829 Elevated white blood cell count, unspecified; R77.8 Other specified abnormalities of plasma proteins; R10.13 Epigastric pain; R11.2 Nausea with vomiting, unspecified; Z72.0 Tobacco use; Z79.899 Other long term (current) drug therapy; Z28.310 Unvaccinated for COVID-19
CPT/HCPCS: 36000; 36415; 74177; 80053; 80307; 83690; 84484; 85025; 85610; 85730; 93005; 96365; 96366; 96374; 96375; 99285; J1644; J2405; A9270-GY

== ENCOUNTER 2021-12-19 01:58 | Emergency (ER) | payer OTHER ==
[2021-12-19] MEDS ORDERED: MORPHINE SULFATE 4 MG INJ IV ONE ×3 (02:06→12:04)
[2021-12-19] MEDS ORDERED: Zofran 4 MG/2 ML VIAL IV ONE (02:06)
[2021-12-19] MEDS ORDERED: BABY ASPIRIN 81 MG CHEW PO ONE (02:06)
--- NOTE | 2021-12-19 02:16 | ERPHSYRPT ---
<PRIYANK NORRIS - Last Filed: 12/19/21 06:41> - History of Present Illness Time Seen by Provider: 12/19/21 02:04 Patient Subjective Stated Complaint: pt states "I woke up about an hour ago from my sleep with severe chest pain and pain down my R arm." Triage Nursing Assessment: pt ambulatory to bed by self, pt alert and oriented x3, pt c/o severe chest pain and pain down R arm that started about an hour, pt was recently here this week for [place] and got transferred to [facility], pt was discharged yesterday from [facility], per patient they couldn't put the stents in all the way and they only got 2/3rds thru was put on plavix, atorvastatin, aspirin for home Physician History: 46 years old male presented in ER with chief complaint of chest pain. Patient reported he recently has NSTEMI, was transferred to [facility] where he had a cardiac cath done with 100% blockage and could not put a stent in there, was placed on medications and is supposed to go back for another cardiac cath later to put stents. This happened 2 days ago. Patient got discharged yesterday from [facility] and almost an hour prior to arrival he started to have substernal chest pain with radiation to the right arm moderate to severe sharp without any significant aggravating or relieving factors. Denies associated nausea vomiting, palpitations or shortness of breath. Timing/Duration: hour(s) (1), constant, sudden, worse Activities at Onset: rest Quality: sharpness Chest Pain Radiation: arm Severity of Pain-Max: severe Severity of Pain-Current: moderate Modifying Factors: Improves With: nothing Associated Symptoms: denies symptoms, No shortness of breath Prior Chest Pain/Cardiac Workup: heart attack Nitro Today/Relief: no nitro taken today Aspirin Treatment Today: no aspirin today Allergies/Adverse Reactions: dicyclomine Allergy (Severe, Verified 12/19/21 07:11) Tightness of Throat acetaminophen [From Darvocet-N 100] Allergy (Mild, Verified 12/19/21 07:11) throat swelling propoxyphene napsylate [From Darvocet-N 100] Allergy (Mild, Verified 12/19/21 07:11) throat swelling sulfamethoxazole [From Bactrim DS] Allergy (Verified 12/19/21 07:11) Rash trimethoprim [From Bactrim DS] Allergy (Verified 12/19/21 07:11) Rash Home Medications: Bupropion HCl 150 mg Sr [Wellbutrin SR 150 MG] 150 mg PO BID 12/10/21 [History] Aspirin EC 81 mg [Ecotrin 81 mg] 81 mg PO DAILY 12/19/21 [History] Atorvastatin Calcium [Lipitor] 80 mg PO DAILY 12/19/21 [History] Clopidogrel Bisulfate [Clopidogrel] 75 mg PO DAILY 12/19/21 [History] Hx Tetanus, Diphtheria Vaccination/Date Given: Yes Hx Influenza Vaccination/Date Given: No Hx Pneumococcal Vaccination/Date Given: No Immunizations Up to Date: Yes Travel Risk - International Travel Have you traveled outside of the country in past 3 weeks: No - Coronavirus Screening Are you exhibiting any of the following symptoms?: No Close contact with a COVID-19 positive Pt in past 14-21 Days: No - Vaccine Status Have you recieved a Covid-19 vaccination: No - Review of Systems Constitutional: No Symptoms Eyes: No Symptoms Ears, Nose, & Throat: No Symptoms Respiratory: No Symptoms Cardiac: Chest Pain Abdominal/Gastrointestinal: No Symptoms Genitourinary Symptoms: No Symptoms Musculoskeletal: No Symptoms Skin: No Symptoms Neurological: No Symptoms Psychological: No Symptoms Endocrine: No Symptoms Hematologic/Lymphatic: No Symptoms Immunological/Allergic: No Symptoms - Past Medical History Pertinent Past Medical History: Yes Neurological History: Peripheral Neuropathy ENT History: No Pertinent History Cardiac History: Myocardial Infarction ([place]) Respiratory History: Asthma Endocrine Medical History: No Pertinent History Musculoskeletal History: Arthritis GI Medical History: No Pertinent History History: No Pertinent History Psycho-Social History: Depression, Other Male Reproductive Disorders: Other Other Medical History: DENTAL CARIES/ABSCESS, ADHD - Past Surgical History Past Surgical History: Yes Neuro Surgical History: No Pertinent History Cardiac: Cardiac Catheterization Respiratory: No Pertinent History Gastrointestinal: No Pertinent History Genitourinary: No Pertinent History Musculoskeletal: Orthopedic Surgery Male Surgical History: No Pertinent History Other Surgical History: HX VASECTOMY, HX Carpal Tunnel - Social History Smoking Status: Current every day smoker How long have you smoked: 35 years Exposure to second hand smoke: Yes Drug Use: none Patient Lives Alone: No - Physical Exam General Appearance: no apparent distress, alert, anxiety Eye Exam: PERRL/EOMI Ears, Nose, Throat Exam: normal ENT inspection, pharynx normal, moist mucous membranes Neck Exam: normal inspection, non-tender, supple, full range of motion Respiratory Exam: normal breath sounds, lungs clear Cardiovascular Exam: regular rate/rhythm, normal heart sounds Gastrointestinal/Abdomen Exam: soft, normal bowel sounds, No tenderness Back Exam: normal inspection, normal range of motion Extremity Exam: normal inspection, normal range of motion Neurologic Exam: alert, oriented x 3, cooperative Skin Exam: normal color SpO2 Interpretation: normal SpO2: 100 O2 Delivery: Room Air - Course EKG Interpreted by Me: RATE (91), Sinus Rhythm, NORMAL AXIS, NORMAL INTERVALS, Q-wave (Inferior leads), Other (Second EKG time 5:53 AM. Rate 60, rhythm sinus rhythm, normal axis, normal intervals, T wave inversion in inferolateral leads, no ST elevation. Q waves in inferior leads.) - Progress Progress: improved Air Movement: good Progress Note: 12/19/21 05:42 46 years old is evaluated for chest pain. He is given aspirin and morphine x1, on reevaluation he is resting comfortably. EKG showed no ST elevation and T wave inversion in inferolateral leads. Initial troponin up 4.0. Chest x-ray no acute cardiopulmonary findings reviewed by me, official report is pending. Since patient had recently cardiac cath done I had suspicion that this elevated troponin is from recent cardiac cath and patient is not in that much pain, I have repeated troponin at 3-hour and it is trending up with a 4.5 now. I repeated EKG and still having the same inferolateral T wave inversion and no ST elevation. Patient right now does not have any chest pain. With known CAD occlusion, I think patient would benefit with cardiology consultation and transfer to [facility]. I have called [facility] transfer center. 12/19/21 06:44 Did not receive a call back from [facility] and call them again and it was informed that it would take a little while because of shift change. Care will be transferred to Dr. Younger at shift change 7 AM. Blood Culture(s) Obtained: No Antibiotics given: No Counseled pt/family regarding: lab results, diagnosis, rad results - Departure Clinical Impression: NSTEMI (non-ST elevated myocardial infarction) Condition: Stable Critical Care Time: No Referrals: CHARITY MANNING [Primary Care Provider] - Follow up/PCP as directed <JUAN YOUNGER - Last Filed: 12/19/21 15:40> - Nursing Vital Signs Nursing Vital Signs: Initial Vital Signs Temperature 97.9 F 12/19/21 02:01 Pulse Rate 91 H 12/19/21 02:01 Respiratory Rate 18 12/19/21 02:01 Blood Pressure 134/93 12/19/21 02:01 O2 Sat by Pulse Oximetry 100 12/19/21 02:01 Pain Scale Pain Intensity 0 Ordered Tests: Active Orders 24 hr Category Date Time Status Product Lead STAT Care 12/19/21 02:06 Active EKG-ER Only STAT Care 12/19/21 02:06 Active IV Insertion STAT Care 12/19/21 02:06 Active Oxygen-ED Only Nasal Cannula 2 lpm Care 12/19/21 02:06 Active CHEST 1 VIEW (PORTABLE) Stat Exams 12/19/21 02:24 Completed CBC W DIFF Stat Lab 12/19/21 02:34 Completed CMP Stat Lab 12/19/21 02:34 Completed NT PRO BNP Stat Lab 12/19/21 02:34 Completed PROTIME WITH INR Stat Lab 12/19/21 08:15 Completed PTT Stat Lab 12/19/21 08:15 Completed TROPONIN Q4H Lab 12/19/21 02:34 Completed TROPONIN Q4H Lab 12/19/21 04:56 Completed TROPONIN Q4H Lab 12/19/21 08:15 Completed TROPONIN Q4H Lab 12/19/21 16:45 Ordered TROPONIN Q4H Lab 12/19/21 20:45 Ordered Medication Summary Generic Name Dose Route Start Last Admin Trade Name Freq PRN Reason Stop Dose Admin Heparin Sodium/Dextrose 25,000 units in 250 mls @ 10 mls/hr 12/19/21 08:00 12/19/21 08:40 Heparin 25,000 Units/D5w 250ml Premix IV 01/18/22 07:59 10 mls/hr .Q24H PHANI 10 mls/hr Administration Sodium Chloride 1,000 mls @ 50 mls/hr 12/19/21 09:00 12/19/21 08:47 Sodium Chloride 0.9% 1000 Ml IV 01/18/22 08:59 50 mls/hr .Q20H PHANI Administration Discontinued Medications Generic Name Dose Route Start Last Admin Trade Name Freq PRN Reason Stop Dose Admin Aspirin 324 mg 12/19/21 02:06 12/19/21 02:34 Aspirin 81 Mg Tab.Chew PO 12/19/21 02:07 324 mg STAT ONE Administration Clopidogrel Bisulfate 75 mg 12/19/21 12:58 12/19/21 13:50 Clopidogrel Bisulfate 75 Mg Tablet PO 12/19/21 12:59 75 mg STAT ONE Administration Clopidogrel Bisulfate Confirm 12/19/21 13:49 Clopidogrel Bisulfate 75 Mg Tablet Administered 12/19/21 13:50 Dose 75 mg .ROUTE .STK-MED ONE Heparin Sodium (Beef Lung) 5,000 unit 12/19/21 07:52 12/19/21 08:38 Heparin 5000 Unit/0.5 Ml Syringe IV 12/19/21 07:53 5,000 unit STAT ONE Administration Heparin Sodium (Beef Lung) Confirm 12/19/21 08:37 Heparin 5000 Unit/0.5 Ml Syringe Administered 12/19/21 08:38 Dose 5,000 unit .ROUTE .STK-MED ONE Metoprolol Tartrate 25 mg 12/19/21 12:59 12/19/21 13:50 Metoprolol Tartrate 25 Mg Tab PO 12/19/21 13:00 25 mg STAT ONE Administration Metoprolol Tartrate Confirm 12/19/21 13:49 Metoprolol Tartrate 25 Mg Tab Administered 12/19/21 13:50 Dose 25 mg .ROUTE .STK-MED ONE Morphine Sulfate 4 mg 12/19/21 02:06 12/19/21 02:35 Morphine Sulfate 4 Mg/Ml Injection IV 12/19/21 02:07 4 mg STAT ONE Administration Morphine Sulfate Confirm 12/19/21 02:34 Morphine Sulfate 4 Mg/Ml Injection Administered 12/19/21 02:35 Dose 4 mg .ROUTE .STK-MED ONE Morphine Sulfate 4 mg 12/19/21 07:54 12/19/21 08:00 Morphine Sulfate 4 Mg/Ml Injection IV 12/19/21 07:55 4 mg STAT ONE Administration Morphine Sulfate Confirm 12/19/21 07:56 Morphine Sulfate 4 Mg/Ml Injection Administered 12/19/21 07:57 Dose 4 mg .ROUTE .STK-MED ONE Morphine Sulfate 4 mg 12/19/21 12:04 12/19/21 12:11 Morphine Sulfate 4 Mg/Ml Injection IV 12/19/21 12:05 4 mg STAT ONE Administration Morphine Sulfate Confirm 12/19/21 12:05 Morphine Sulfate 4 Mg/Ml Injection Administered 12/19/21 12:06 Dose 4 mg .ROUTE .STK-EdPuzzle ONE Ondansetron HCl 4 mg 12/19/21 02:06 12/19/21 02:34 Ondansetron Hcl 4 Mg/2 Ml Vial IV 12/19/21 02:07 4 mg STAT ONE Administration Ondansetron HCl Confirm 12/19/21 02:34 Ondansetron Hcl 4 Mg/2 Ml Vial Administered 12/19/21 02:35 Dose 4 mg .ROUTE .STK-MED ONE Lab/Rad Data: Laboratory Result Diagrams 12/19/21 02:34 12/19/21 02:34 Laboratory Results 12/19/21 12/19/21 12/19/21 Range/Units 13:28 08:15 08:15 WBC (4.0-10.5) x10^3/uL RBC (4.1-5.6) x10^6/uL Hgb (12.5-18.0) g/dL Hct (42-50) % MCV (78-100) fL MCH (26-32) pg MCHC (32-36) g/dL RDW (11.5-14.0) % Plt Count (150-450) x10^3/uL MPV (7.5-11.0) fL Gran % (36.0-66.0) % Immature Gran % (Auto) (0.00-0.4) % Nucleat RBC Rel Count (0.00-0.1) % Eos # (Auto) (0-0.5) x10^3/uL Immature Gran # (Auto) (0.00-0.03) x10^3u/L Absolute Lymphs (auto) (1.0-4.6) x10^3/uL Absolute Monos (auto) (0.0-1.3) x10^3/uL Absolute Nucleated RBC (0.00-0.01) x10^3u/L Lymphocytes % (24.0-44.0) % Monocytes % (0.0-12.0) % Eosinophils % (0.00-5.0) % Basophils % (0.0-0.4) % Absolute Granulocytes (1.4-6.9) x10^3/uL Basophils # (0-0.4) x10^3/uL PT 10.9 (9.4-12.5) SECONDS INR 1.03 (0.8-3.0) APTT 26.9 (25.1-36.5) SECONDS Sodium (137-145) mmol/L Potassium (3.5-5.1) mmol/L Chloride (98-107) mmol/L Carbon Dioxide (22-30) mmol/L Anion Gap (5-15) MEQ/L BUN (9-20) mg/dL Creatinine (0.66-1.25) mg/dL Estimated GFR ML/MIN Glucose (74-106) mg/dL Calcium (8.4-10.2) mg/dL Total Bilirubin (0.2-1.3) mg/dL AST (17-59) U/L ALT (0-50) U/L Alkaline Phosphatase (38-126) U/L Troponin 3.00 H (0.00-0.03) ng/mL Troponin I 4.980 H* (0.000-0.034) ng/mL NT-Pro-B Natriuret Pep (0-450) pg/mL Serum Total Protein (6.3-8.2) g/dL Albumin (3.5-5.0) g/dL 12/19/21 12/19/21 12/19/21 Range/Units 04:56 02:34 02:34 WBC (4.0-10.5) x10^3/uL RBC (4.1-5.6) x10^6/uL Hgb (12.5-18.0) g/dL Hct (42-50) % MCV (78-100) fL MCH (26-32) pg MCHC (32-36) g/dL RDW (11.5-14.0) % Plt Count (150-450) x10^3/uL MPV (7.5-11.0) fL Gran % (36.0-66.0) % Immature Gran % (Auto) (0.00-0.4) % Nucleat RBC Rel Count (0.00-0.1) % Eos # (Auto) (0-0.5) x10^3/uL Immature Gran # (Auto) (0.00-0.03) x10^3u/L Absolute Lymphs (auto) (1.0-4.6) x10^3/uL Absolute Monos (auto) (0.0-1.3) x10^3/uL Absolute Nucleated RBC (0.00-0.01) x10^3u/L Lymphocytes % (24.0-44.0) % Monocytes % (0.0-12.0) % Eosinophils % (0.00-5.0) % Basophils % (0.0-0.4) % Absolute Granulocytes (1.4-6.9) x10^3/uL Basophils # (0-0.4) x10^3/uL PT (9.4-12.5) SECONDS INR (0.8-3.0) APTT (25.1-36.5) SECONDS Sodium 138 (137-145) mmol/L Potassium 3.8 (3.5-5.1) mmol/L Chloride 107 (98-107) mmol/L Carbon Dioxide 26 (22-30) mmol/L Anion Gap 9.3 (5-15) MEQ/L BUN 12 (9-20) mg/dL Creatinine 0.90 (0.66-1.25) mg/dL Estimated GFR > 60.0 ML/MIN Glucose 107 H (74-106) mg/dL Calcium 8.7 (8.4-10.2) mg/dL Total Bilirubin 0.30 (0.2-1.3) mg/dL AST 59 (17-59) U/L ALT 28 (0-50) U/L Alkaline Phosphatase 48 (38-126) U/L Troponin (0.00-0.03) ng/mL Troponin I 4.500 H* 4.010 H* (0.000-0.034) ng/mL NT-Pro-B Natriuret Pep 2150 H (0-450) pg/mL Serum Total Protein 6.3 (6.3-8.2) g/dL Albumin 3.7 (3.5-5.0) g/dL 12/19/21 Range/Units 02:34 WBC 14.5 H (4.0-10.5) x10^3/uL RBC 4.66 (4.1-5.6) x10^6/uL Hgb 14.0 (12.5-18.0) g/dL Hct 42.9 (42-50) % MCV 92.1 (78-100) fL MCH 30.0 (26-32) pg MCHC 32.6 (32-36) g/dL RDW 14.4 H (11.5-14.0) % Plt Count 225 (150-450) x10^3/uL MPV 12.3 H (7.5-11.0) fL Gran % 70.8 H (36.0-66.0) % Immature Gran % (Auto) 0.4 (0.00-0.4) % Nucleat RBC Rel Count 0.0 (0.00-0.1) % Eos # (Auto) 0.25 (0-0.5) x10^3/uL Immature Gran # (Auto) 0.06 H (0.00-0.03) x10^3u/L Absolute Lymphs (auto) 2.70 (1.0-4.6) x10^3/uL Absolute Monos (auto) 1.15 (0.0-1.3) x10^3/uL Absolute Nucleated RBC 0.00 (0.00-0.01) x10^3u/L Lymphocytes % 18.6 L (24.0-44.0) % Monocytes % 7.9 (0.0-12.0) % Eosinophils % 1.7 (0.00-5.0) % Basophils % 0.6 (0.0-0.4) % Absolute Granulocytes 10.25 H (1.4-6.9) x10^3/uL Basophils # 0.08 (0-0.4) x10^3/uL PT (9.4-12.5) SECONDS INR (0.8-3.0) APTT (25.1-36.5) SECONDS Sodium (137-145) mmol/L Potassium (3.5-5.1) mmol/L Chloride (98-107) mmol/L Carbon Dioxide (22-30) mmol/L Anion Gap (5-15) MEQ/L BUN (9-20) mg/dL Creatinine (0.66-1.25) mg/dL Estimated GFR ML/MIN Glucose (74-106) mg/dL Calcium (8.4-10.2) mg/dL Total Bilirubin (0.2-1.3) mg/dL AST (17-59) U/L ALT (0-50) U/L Alkaline Phosphatase (38-126) U/L Troponin (0.00-0.03) ng/mL Troponin I (0.000-0.034) ng/mL NT-Pro-B Natriuret Pep (0-450) pg/mL Serum Total Protein (6.3-8.2) g/dL Albumin (3.5-5.0) g/dL - Progress Progress Note: 12/19/21 07:55 Assumed care of pt at 7AM of pt w h/o NSTEMI 3 days ago s/p cath where lesions could not be stented. Pt discharged for an elective cath in the future. He developed mid-sternal chest pain w associated R wrist pain at 1:00AM. Pain 6/10 at 1:00AM and currently 2/10 after MSO4. He has a h/o hyperlipidemia and 1ppd smoker. Lungs faint rales at R base but overall clear/Heart RRR woM/Abdomen soft, NTTP/EKG NSR, Rate60,Normal QT-QTc/Possible old inferior [place]/Flat lateral T waves/Troponin elevating/Pt accepted by Dr. Mcneill at [facility]/Dr. Mcneill wants pt heparinized/Pt already had ASA 324 po 12/19/21 08:30 Pt also accepted by [facility] Hospitalist-Dr. Viveros. Pain 0 after 4mg IV MSO4 12/19/21 11:00 Tried to transfer to [facility] due to lack of beds at [facility]-Dr. Rao thought that pt should be treated by Dr. Velasquez who did his cath. Dr. Rao later called and stated that he reviewed the cath films and stated that pt would benefit from PCI to RCA 100% lesion from a high risk merchandising specialist in [facility]. Pt accepted by Dr. Sams at [facility] but no beds Dr. Velasquez later called and stated that he would not take pt to microbiological lab technician and ok to observe at [place]. 12/19/21 11:[address] Marie at 12/19/21 15:37 Pt transferred to [facility] by [facility]. Pt stable upon transfer - Departure Departure Disposition: Transfer
[2021-12-19] MEDS ORDERED: Zofran 4 MG/2 ML VIAL ONE (02:34)
[2021-12-19] MEDS ORDERED: MORPHINE SULFATE 4 MG INJ ONE ×3 (02:34→12:05)
[2021-12-19 02:37] LABS: Absolute Neutrophil Ct (ANC) 10.25 x10^3/uL (1.4-6.9); Basophil (Absolute #) 0.08 x10^3/uL (0-0.4); Eosinophil % 1.7 % (0.00-5.0); Eosinophil (Absolute #) 0.25 x10^3/uL (0-0.5); Hematocrit 42.9 % (42-50); Lymphocytes % 18.6 % (24.0-44.0); Mean Cell Volume 92.1 fL (78-100); Mean Corpuscular Hgb Concent. 32.6 g/dL (32-36); Mean Platelet Volume 12.3 fL (7.5-11.0); Monocyte (Absolute #) 1.15 x10^3/uL (0.0-1.3); Monocytes % 7.9 % (0.0-12.0); Neutrophil % 70.8 % (36.0-66.0); Platelet Count 225 x10^3/uL (150-450); Red Blood Count 4.66 x10^6/uL (4.1-5.6); Red Cell Distribution Width 14.4 % (11.5-14.0); White Blood Count 14.5 x10^3/uL (4.0-10.5)
[2021-12-19 03:01] LABS: ALBUMIN 3.7 g/dL (3.5-5.0); ALKALINE PHOSPHATASE 48 U/L (38-126); ANION GAP 9.3 MEQ/L (5-15); BLOOD UREA NITROGEN 12 mg/dL (9-20); CHLORIDE 107 mmol/L (98-107); Calcium 8.7 mg/dL (8.4-10.2); Carbon Dioxide 26 mmol/L (22-30); EST GLOMERULAR FILTRATION RATE > 60.0 ML/MIN; Glucose 107 mg/dL (74-106); NT PRO BNP 2150 pg/mL (0-450); Potassium 3.8 mmol/L (3.5-5.1); SGOT/AST 59 U/L (17-59); SGPT/ALT 28 U/L (0-50); SODIUM 138 mmol/L (137-145); Total Protein 6.3 g/dL (6.3-8.2)
[2021-12-19] MEDS ORDERED: Heparin 5000 UNITS/0.5 ML (HIGH RISK MED) IV ONE (07:52)
[2021-12-19] MEDS ORDERED: Heparin 25,000 units/D5W 250ML PREMIX 25,000 UNITS/250 ML BAG IV SCH (08:00)
[2021-12-19 08:34] LABS: INR 1.03 (0.8-3.0); PROTIME 10.9 SECONDS (9.4-12.5); PTT 26.9 SECONDS (25.1-36.5)
[2021-12-19] MEDS ORDERED: Heparin 5000 UNITS/0.5 ML (HIGH RISK MED) ONE (08:37)
[2021-12-19] MEDS ORDERED: Heparin 25,000 units/D5W 250ML PREMIX 25,000 UNITS/250 ML BAG IV ONE (08:37)
[2021-12-19] MEDS ORDERED: Sodium Chloride 0.9% 1000 ML 1,000 ML ONE (08:46)
[2021-12-19] MEDS ORDERED: Sodium Chloride 0.9% 1000 ML 1,000 ML IV SCH (09:00)
--- NOTE | 2021-12-19 09:10 | XRAY ---
Indication: Chest pain. Comparison: December 10, 2020 Portable chest remains inflated and clear. Heart is not enlarged. Bony thorax intact. Impression: Continued nonacute chest.
[2021-12-19 11:14] VITALS: O2SAT 98
[2021-12-19] MEDS ORDERED: PLAVIX Tablet PO ONE (12:58)
[2021-12-19] MEDS ORDERED: Lopressor 25MG Tab PO ONE (12:59)
[2021-12-19] MEDS ORDERED: Lopressor 25MG Tab ONE (13:49)
[2021-12-19] MEDS ORDERED: PLAVIX Tablet ONE (13:49)
[2021-12-19 15:20] VITALS: BP 116/80; PULSE 84
[2021-12-19 21:07] LABS: TROPONIN 3.98 ng/mL (0.000-0.034)
== END 2021-12-19 15:45 | disposition short-term general hospital (02) ==
LOC: ED 01:58
DX: I22.2 Subsequent non-ST elevation (NSTEMI) myocardial infarction (principal); I21.9 Acute myocardial infarction, unspecified; R07.9 Chest pain, unspecified; Z72.0 Tobacco use; Z79.02 Long term (current) use of antithrombotics/antiplatelets; Z79.899 Other long term (current) drug therapy; Z28.310 Unvaccinated for COVID-19
CPT/HCPCS: 36000; 36415; 71045; 80053; 83880; 84484; 85025; 85610; 85730; 93005; 93041; 96365; 96366; 96374; 96375; 96376; 99285; J1644; J2270; J2405; A9270-GY

== ENCOUNTER 2022-01-25 15:20 | Emergency (ER) | payer OTHER ==
[2022-01-25] MEDS ORDERED: NITRO-BID 2% UD PACKETS TOP ONE (15:34)
[2022-01-25] MEDS ORDERED: MORPHINE SULFATE 4 MG INJ IV ONE (15:34)
[2022-01-25] MEDS ORDERED: BABY ASPIRIN 81 MG CHEW PO ONE (15:34)
--- NOTE | 2022-01-25 15:39 | ERPHSYRPT ---
- History of Present Illness Time Seen by Provider: 01/25/22 15:36 Historian: patient Exam Limitations: no limitations Patient Subjective Stated Complaint: pt here for chest pain since 0400 this morning, relieved by one nitro this am, he had heart cath a month ago, no sten ts. Triage Nursing Assessment: pt alert,anxious, resp easy.face mask in place, skin w/d/p,chest clear, no edema noted Physician History: patient is a 46-year-old male with significant past medical history of coronary artery disease for which patient recently underwent cardiac catheterization and stent placement but according to the patient it was unsuccessful. Patient was put on Plavix and aspirin and was discharged home but today morning at around 4:00 he started having a left-sided substernal chest pain nonradiating. Patient denies any diaphoresis nausea or vomiting. Timing/Duration: today Activities at Onset: none Quality: tightness Location: substernal Chest Pain Radiation: no radiation Severity of Pain-Max: moderate Severity of Pain-Current: moderate Modifying Factors: Improves With: nothing Associated Symptoms: denies symptoms Prior Chest Pain/Cardiac Workup: cardiac cath Nitro Today/Relief: 0.4 mg x 1, provided by ED, no relief Aspirin Treatment Today: 325 mg x 1, provided by ED Allergies/Adverse Reactions: dicyclomine Allergy (Severe, Verified 01/25/22 15:22) Tightness of Throat acetaminophen [From Darvocet-N 100] Allergy (Mild, Verified 01/25/22 15:22) throat swelling propoxyphene napsylate [From Darvocet-N 100] Allergy (Mild, Verified 01/25/22 15:22) throat swelling sulfamethoxazole [From Bactrim DS] Allergy (Verified 01/25/22 15:22) Rash trimethoprim [From Bactrim DS] Allergy (Verified 01/25/22 15:22) Rash Home Medications: Bupropion HCl 150 mg Sr [Wellbutrin SR 150 MG] 150 mg PO BID 12/10/21 [History] Aspirin EC 81 mg [Ecotrin 81 mg] 81 mg PO DAILY 12/19/21 [History] Atorvastatin Calcium [Lipitor] 80 mg PO DAILY 12/19/21 [History] Clopidogrel Bisulfate [Clopidogrel] 75 mg PO DAILY 12/19/21 [History] Hx Tetanus, Diphtheria Vaccination/Date Given: Yes Hx Influenza Vaccination/Date Given: No Hx Pneumococcal Vaccination/Date Given: No Immunizations Up to Date: Yes Travel Risk - International Travel Have you traveled outside of the country in past 3 weeks: No - Coronavirus Screening Are you exhibiting any of the following symptoms?: No Close contact with a COVID-19 positive Pt in past 14-21 Days: No - Vaccine Status Have you recieved a Covid-19 vaccination: No - Review of Systems Constitutional: No Fever, No Chills Eyes: No Symptoms Ears, Nose, & Throat: No Symptoms Respiratory: No Cough, No Dyspnea Cardiac: Chest Pain, No Edema, No Syncope Abdominal/Gastrointestinal: No Abdominal Pain, No Nausea, No Vomiting, No Diarrhea Genitourinary Symptoms: No Dysuria Musculoskeletal: No Back Pain, No Neck Pain Skin: No Rash Neurological: No Dizziness, No Focal Weakness, No Sensory Changes Psychological: No Symptoms Endocrine: No Symptoms All Other Systems: Reviewed and Negative - Past Medical History Pertinent Past Medical History: Yes Neurological History: Peripheral Neuropathy ENT History: No Pertinent History Cardiac History: Myocardial Infarction ([place]) Respiratory History: Asthma Endocrine Medical History: No Pertinent History Musculoskeletal History: Arthritis GI Medical History: No Pertinent History History: No Pertinent History Psycho-Social History: Depression, Other Male Reproductive Disorders: Other Other Medical History: DENTAL CARIES/ABSCESS, ADHD - Past Surgical History Past Surgical History: Yes Neuro Surgical History: No Pertinent History Cardiac: Cardiac Catheterization Respiratory: No Pertinent History Gastrointestinal: No Pertinent History Genitourinary: No Pertinent History Musculoskeletal: Orthopedic Surgery Male Surgical History: No Pertinent History Other Surgical History: HX VASECTOMY, HX Carpal Tunnel - Social History Smoking Status: Current some day smoker How long have you smoked: 35 years Exposure to second hand smoke: Yes Drug Use: none Patient Lives Alone: No - Nursing Vital Signs Nursing Vital Signs: Initial Vital Signs Temperature 98.6 F 01/25/22 15:22 Pulse Rate 91 H 01/25/22 15:22 Respiratory Rate 18 01/25/22 15:22 Blood Pressure 112/78 01/25/22 15:22 O2 Sat by Pulse Oximetry 98 01/25/22 15:22 Pain Scale Pain Intensity 4 - Physical Exam General Appearance: no apparent distress, alert Eye Exam: PERRL/EOMI, eyes nml inspection Ears, Nose, Throat Exam: normal ENT inspection, moist mucous membranes Neck Exam: normal inspection, non-tender, supple, full range of motion Respiratory Exam: normal breath sounds, lungs clear, No respiratory distress Cardiovascular Exam: regular rate/rhythm, normal heart sounds Gastrointestinal/Abdomen Exam: soft, No tenderness, No mass Back Exam: normal inspection, No CVA tenderness, No vertebral tenderness Extremity Exam: normal inspection, normal range of motion Neurologic Exam: alert, oriented x 3, cooperative, normal mood/affect, sensation nml, No motor deficits Skin Exam: normal color, warm, dry SpO2: 98 - Course Nursing assessment & vital signs reviewed: Yes - Radiology Exams Chest X-ray Interpretation: Reviewed by me, Negative, No Pneumonia, No Pneumothorax Ordered Tests: Active Orders 24 hr Category Date Time Status Cmm Technician STAT Care 01/25/22 15:34 Active EKG-ER Only STAT Care 01/25/22 15:34 Active IV Insertion STAT Care 01/25/22 15:34 Active Oxygen-ED Only Nasal Cannula 2 lpm Care 01/25/22 15:34 Active CHEST 1 VIEW (PORTABLE) Stat Exams 01/25/22 15:52 Taken CBC W DIFF Stat Lab 01/25/22 15:34 Completed CMP Stat Lab 01/25/22 16:10 Completed NT PRO BNP Stat Lab 01/25/22 16:10 Completed TROPONIN Q4H Lab 01/25/22 16:10 Completed TROPONIN Q4H Lab 01/25/22 19:45 Ordered TROPONIN Q4H Lab 01/25/22 23:45 Ordered Medication Summary Generic Name Dose Route Start Last Admin Trade Name Freq PRN Reason Stop Dose Admin Sodium Chloride 1,000 mls @ 100 mls/hr 01/25/22 15:45 01/25/22 15:45 Sodium Chloride 0.9% 1000 Ml IV 02/24/22 15:44 100 mls/hr .Q10H PHANI Administration Ceftriaxone Sodium/Dextrose 1 g in 50 mls @ 100 mls/hr 01/25/22 16:56 01/25/22 16:59 Rocephin 1 Gm-D5w 50 Ml Bag IV 01/25/22 17:25 200 ml/hr STAT STA 200 mls/hr Administration Discontinued Medications Generic Name Dose Route Start Last Admin Trade Name Freq PRN Reason Stop Dose Admin Aspirin 324 mg 01/25/22 15:34 01/25/22 15:45 Aspirin 81 Mg Tab.Chew PO 01/25/22 15:35 162 mg STAT ONE Administration Aspirin Confirm 01/25/22 15:42 Aspirin 81 Mg Tab.Chew Administered 01/25/22 15:43 Dose 162 mg .ROUTE .STK-MED ONE Ceftriaxone Sodium 1,000 mg 01/25/22 16:47 01/25/22 16:53 Ceftriaxone Sodium 1000 Mg Inj Vial IM 01/25/22 16:48 Not Given STAT ONE Ceftriaxone Sodium/Dextrose Confirm 01/25/22 16:58 Rocephin 1 Gm-D5w 50 Ml Bag Administered 01/25/22 16:59 Dose 1 g in 50 mls @ ud IV .STK-MED ONE Morphine Sulfate 4 mg 01/25/22 15:34 01/25/22 15:45 Morphine Sulfate 4 Mg/Ml Injection IV 01/25/22 15:35 4 mg STAT ONE Administration Morphine Sulfate Confirm 01/25/22 15:43 Morphine Sulfate 4 Mg/Ml Injection Administered 01/25/22 15:44 Dose 4 mg .ROUTE .STK-MED ONE Nitroglycerin 1 gm 01/25/22 15:34 01/25/22 15:46 Nitroglycerin 1 Gm Packet TOP 01/25/22 15:35 1 gm STAT ONE Administration Nitroglycerin Confirm 01/25/22 15:43 Nitroglycerin 1 Gm Packet Administered 01/25/22 15:44 Dose 1 gm .ROUTE .STK-MED ONE Ondansetron HCl 4 mg 01/25/22 15:41 01/25/22 15:45 Ondansetron Hcl 4 Mg/2 Ml Vial IV 01/25/22 15:42 4 mg STAT ONE Administration Ondansetron HCl Confirm 01/25/22 15:42 Ondansetron Hcl 4 Mg/2 Ml Vial Administered 01/25/22 15:43 Dose 4 mg .ROUTE .STK-MED ONE Lab/Rad Data: Laboratory Result Diagrams 01/25/22 15:34 01/25/22 16:10 Laboratory Results 01/25/22 01/25/22 01/25/22 Range/Units 16:10 16:10 15:34 WBC 16.0 H (4.0-10.5) x10^3/uL RBC 4.71 (4.1-5.6) x10^6/uL Hgb 13.5 (12.5-18.0) g/dL Hct 42.8 (42-50) % MCV 90.9 (78-100) fL MCH 28.7 (26-32) pg MCHC 31.5 L (32-36) g/dL RDW 13.0 (11.5-14.0) % Plt Count 226 (150-450) x10^3/uL MPV 12.8 H (7.5-11.0) fL Gran % 76.1 H (36.0-66.0) % Immature Gran % (Auto) 0.3 (0.00-0.4) % Nucleat RBC Rel Count 0.0 (0.00-0.1) % Eos # (Auto) 0.24 (0-0.5) x10^3/uL Immature Gran # (Auto) 0.05 H (0.00-0.03) x10^3u/L Absolute Lymphs (auto) 2.56 (1.0-4.6) x10^3/uL Absolute Monos (auto) 0.87 (0.0-1.3) x10^3/uL Absolute Nucleated RBC 0.00 (0.00-0.01) x10^3u/L Lymphocytes % 16.0 L (24.0-44.0) % Monocytes % 5.4 (0.0-12.0) % Eosinophils % 1.5 (0.00-5.0) % Basophils % 0.7 (0.0-0.4) % Absolute Granulocytes 12.18 H (1.4-6.9) x10^3/uL Basophils # 0.11 (0-0.4) x10^3/uL Sodium 138 (137-145) mmol/L Potassium 3.9 (3.5-5.1) mmol/L Chloride 105 (98-107) mmol/L Carbon Dioxide 24 (22-30) mmol/L Anion Gap 12.3 (5-15) MEQ/L BUN 13 (9-20) mg/dL Creatinine 0.75 (0.66-1.25) mg/dL Estimated GFR > 60.0 ML/MIN Glucose 143 H (74-106) mg/dL Calcium 8.7 (8.4-10.2) mg/dL Total Bilirubin 0.60 (0.2-1.3) mg/dL AST 26 (17-59) U/L ALT 27 (0-50) U/L Alkaline Phosphatase 64 (38-126) U/L Troponin I < 0.012 (0.000-0.034) ng/mL NT-Pro-B Natriuret Pep 740 H (0-450) pg/mL Serum Total Protein 7.1 (6.3-8.2) g/dL Albumin 4.1 (3.5-5.0) g/dL - Progress Progress: improved Air Movement: good Blood Culture(s) Obtained: No Antibiotics given: No Counseled pt/family regarding: lab results, diagnosis, need for follow-up, rad results, smoking cessation - Departure Departure Disposition: Home Clinical Impression: Acute coronary syndrome Leukocytosis Qualifiers: Leukocytosis type: bandemia Qualified Code(s): D72.825 - Bandemia Condition: Stable Critical Care Time: Yes Critical Care Time(excluding separately billable procedures): Critical 30-74 m ins Referrals: CHARITY MANNING [Primary Care Provider] - Follow Up with PCP/3 days Instructions: Angina (DC), Chest Pain (DC) Additional Instructions: Discharge/Care Plan JOÃOMAGNOLIA YUEN was seen on 01/25/22 in the Emergency Room. The patient was counseled regarding Diagnosis,Lab results, Imaging studies, need for follow up and when to return to the Emergency Room. Prescriptions given: Discharge Note I have spoken with the patient and/or caregivers. I have explained the patient's condition, diagnosis and treatment plan based on the information available to me at this time. I have answered the patient's and/or caregiver's questions and addressed any concerns. The patient and/or caregivers have as good understanding of the patient's diagnosis, condition and treatment plan as can be expected at this point. The vital signs have been stable. The patient's condition is stable and appropriate for discharge from the emergency department. The patient will pursue further outpatient evaluation with the primary care physician or other designated or consulting physician as outlined in the discharge instructions. The patient and/or caregivers are agreeable to this plan of care and follow-up instructions have been explained in detail. The patient and/or caregivers have received these instruction. The patient/and or caregivers are aware that any significant change in condition or worsening of symptoms should prompt an immediate return to this or the closest emergency department or call 911. MAGNOLIA MOYER was seen on 01/25/22 n the Emergency Room. At that time you were treated for an emergent condition, during your visit Laboratory, Radiology and/or other procedures may have been ordered. It is very important that you follow-up with your Primary Care Physician CHARITY MANNING within the next 24-48 hours to review your Emergency Room visit and the final results of testing that was ordered. Some test results such as Urine Cultures, Blood Cultures, and other cultures if ordered will not be finalized for 24-48 hours. If you do not have a Primary Care Provider please call the medical records department at [phone] to obtain a copy of your results or you may sign into our patient portal to obtain these results by visiting us @ [email or web address] and completing the following steps: 1. Click on the Patient Portal link 2. Click the Patient Self Enrollment Link to complete the enrollment form and entering your 3. Once the enrollment form is completed you will receive an email with a temporary ID and password at the email address you provided. 4. Next choose a user name and password. Your user name must be at least 4 thiago acters long and your password must be at least 4 characters long. 5. Choose a security question from the list and provide your answer to the question. If you already have signed into the Health Portal you may access your Health Care Information 02/11 by the following steps: 1. Login to our website @ [email or web address] 2. Enter your original user name and password. FAQS The [facility] Portal is an online tool that contains your Lab Results, Radiology Reports, Visit History, Discharge Instructions and Health Summary Lab and Radiology Results will not be available for 72 hours on the portal. The Portal is a secure site, passwords are encryted and URLs are re-written so they cannot be copied and pasted. You and authorized family members are the only ones who can access your Portal. Also there is a timeout feature that protects your information if you leave the Portal page open. If you have technical difficulty please use the Contact Us link on the page this will allow you to submit any questions you have regarding the Portal or you may contact the Medical Record Department at [phone]. Prescriptions: Azithromycin [Azithromycin 250 mg Pack] 250 mg PO UD #6 tablet Methylprednisolone Packet [Medrol Dosepack] 4 mg PO UD #21 packet
[2022-01-25] MEDS ORDERED: Zofran 4 MG/2 ML VIAL IV ONE (15:41)
[2022-01-25] MEDS ORDERED: Zofran 4 MG/2 ML VIAL ONE (15:42)
[2022-01-25] MEDS ORDERED: BABY ASPIRIN 81 MG CHEW ONE (15:42)
[2022-01-25] MEDS ORDERED: MORPHINE SULFATE 4 MG INJ ONE (15:43)
[2022-01-25] MEDS ORDERED: NITRO-BID 2% UD PACKETS ONE (15:43)
[2022-01-25] MEDS ORDERED: Sodium Chloride 0.9% 1000 ML 1,000 ML ONE (15:43)
[2022-01-25] MEDS ORDERED: Sodium Chloride 0.9% 1000 ML 1,000 ML IV SCH (15:45)
[2022-01-25 16:18] LABS: Absolute Neutrophil Ct (ANC) 12.18 x10^3/uL (1.4-6.9); Basophil (Absolute #) 0.11 x10^3/uL (0-0.4); Eosinophil % 1.5 % (0.00-5.0); Eosinophil (Absolute #) 0.24 x10^3/uL (0-0.5); Hematocrit 42.8 % (42-50); Hemoglobin 13.5 g/dL (12.5-18.0); Lymphocyte (Absolute #) 2.56 x10^3/uL (1.0-4.6); Mean Cell Volume 90.9 fL (78-100); Mean Corpuscular Hemoglobin 28.7 pg (26-32); Mean Corpuscular Hgb Concent. 31.5 g/dL (32-36); Mean Platelet Volume 12.8 fL (7.5-11.0); Monocyte (Absolute #) 0.87 x10^3/uL (0.0-1.3); Monocytes % 5.4 % (0.0-12.0); Neutrophil % 76.1 % (36.0-66.0); Platelet Count 226 x10^3/uL (150-450); Red Blood Count 4.71 x10^6/uL (4.1-5.6)
[2022-01-25 16:41] LABS: ALBUMIN 4.1 g/dL (3.5-5.0); ALKALINE PHOSPHATASE 64 U/L (38-126); ANION GAP 12.3 MEQ/L (5-15); BLOOD UREA NITROGEN 13 mg/dL (9-20); CHLORIDE 105 mmol/L (98-107); Calcium 8.7 mg/dL (8.4-10.2); Carbon Dioxide 24 mmol/L (22-30); Creatinine 1 0.75 mg/dL (0.66-1.25); EST GLOMERULAR FILTRATION RATE > 60.0 ML/MIN; Glucose 143 mg/dL (74-106); NT PRO BNP 740 pg/mL (0-450); Potassium 3.9 mmol/L (3.5-5.1); SGOT/AST 26 U/L (17-59); SGPT/ALT 27 U/L (0-50); SODIUM 138 mmol/L (137-145); Total Protein 7.1 g/dL (6.3-8.2)
[2022-01-25] MEDS ORDERED: Rocephin 1000 MG INJ IM ONE (16:47)
[2022-01-25] MEDS ORDERED: ROCEPHIN 1 Gm-D5w 50 ml Bag** 1 G/50 ML IVPB IV STA (16:56)
[2022-01-25] MEDS ORDERED: ROCEPHIN 1 Gm-D5w 50 ml Bag** 1 G/50 ML IVPB IV ONE (16:58)
[2022-01-25 17:37] VITALS: BP 113/73; PULSE 70; O2SAT 97
--- NOTE | 2022-01-25 19:50 | XRAY ---
Indication: Chest pain. Comparison: December 19, 2021 Portable chest now demonstrates subtle bibasilar infiltrates versus atelectasis. Remaining heart and lungs unremarkable. Bony thorax intact.
--- NOTE | 2022-01-25 19:50 | XRAY ---
Indication: Chest pain. Comparison: December 19, 2021 Portable chest now demonstrates subtle bibasilar infiltrates versus atelectasis. Remaining heart and lungs unremarkable. Bony thorax intact.
== END 2022-01-25 17:37 | disposition home or self-care (01) ==
LOC: ED 15:20
DX: I24.9 Acute ischemic heart disease, unspecified (principal); D72.825 Bandemia; Z79.899 Other long term (current) drug therapy
CPT/HCPCS: 36000; 36415; 71045; 80053; 83880; 84484; 85025; 93005; 93041; 96365; 96374; 96375; 99284; 99291; J0696; J2270; J2405; A9270-GY

== ENCOUNTER 2022-02-20 09:21 | Emergency (ER) | payer OTHER ==
[2022-02-20] MEDS ORDERED: BABY ASPIRIN 81 MG CHEW PO ONE (09:31)
--- NOTE | 2022-02-20 09:31 | ERPHSYRPT ---
- History of Present Illness Time Seen by Provider: 02/20/22 09:27 Historian: patient Exam Limitations: no limitations Patient Subjective Stated Complaint: pt here for chest pain to center of chest since 1100 yesterday, has cough and congestion, pt has recent [place] last month Triage Nursing Assessment: pt alert, resp easy, face mask in place, skin w/d/p, anxouis at times, no edema nted Physician History: This is a 46-year-old white male patient of Dr. Chase Butt and guard sergeant Layo Velasquez who has a history of myocardial infarction, coronary disease and cardiac catheterization. Recently, there was an attempt made to place cardiac stents but they were unable to do so. Patient was placed on Plavix and aspirin. Patient took his Plavix today and 2 nitroglycerin because of chest pain that began yesterday at 11 AM described as heartburn. This morning his chest pain is substernal and nonradiating. Patient states he is still smoking 1 to 2 cigarettes a day and vapes. He has a history of peripheral neuropathy, asthma, depression, ADHD, and hyperlipidemia. Patient completed a Z-Abdias for treatment of a recent diagnosis of bronchitis. Timing/Duration: yesterday Activities at Onset: none Quality: pressure, other (Heartburn initially and now substernal pressure) Location: substernal, central Chest Pain Radiation: no radiation Severity of Pain-Max: mild Severity of Pain-Current: mild Modifying Factors: Improves With: nothing Associated Symptoms: denies symptoms Nitro Today/Relief: 0.4 mg x 2 (Taken yesterday) Aspirin Treatment Today: no aspirin today Allergies/Adverse Reactions: dicyclomine Allergy (Severe, Verified 02/20/22 09:27) Tightness of Throat acetaminophen [From Darvocet-N 100] Allergy (Mild, Verified 02/20/22 09:27) throat swelling propoxyphene napsylate [From Darvocet-N 100] Allergy (Mild, Verified 02/20/22 09:27) throat swelling sulfamethoxazole [From Bactrim DS] Allergy (Verified 02/20/22 09:27) Rash trimethoprim [From Bactrim DS] Allergy (Verified 02/20/22 09:27) Rash Home Medications: Bupropion HCl 150 mg Sr [Wellbutrin SR 150 MG] 150 mg PO BID 12/10/21 [History] Aspirin EC 81 mg [Ecotrin 81 mg] 81 mg PO DAILY 12/19/21 [History] Atorvastatin Calcium [Lipitor] 80 mg PO DAILY 12/19/21 [History] Clopidogrel Bisulfate [Clopidogrel] 75 mg PO DAILY 12/19/21 [History] Hx Tetanus, Diphtheria Vaccination/Date Given: Yes Hx Influenza Vaccination/Date Given: No Hx Pneumococcal Vaccination/Date Given: No Immunizations Up to Date: Yes Travel Risk - International Travel Have you traveled outside of the country in past 3 weeks: No - Coronavirus Screening Are you exhibiting any of the following symptoms?: No - Vaccine Status Have you recieved a Covid-19 vaccination: No - Review of Systems Constitutional: No Symptoms Eyes: No Symptoms Ears, Nose, & Throat: No Symptoms Respiratory: No Symptoms Cardiac: Chest Pain Abdominal/Gastrointestinal: No Symptoms Genitourinary Symptoms: No Symptoms Musculoskeletal: No Symptoms Skin: No Symptoms Neurological: No Symptoms Psychological: No Symptoms Endocrine: No Symptoms Hematologic/Lymphatic: No Symptoms Immunological/Allergic: No Symptoms All Other Systems: Reviewed and Negative - Past Medical History Pertinent Past Medical History: Yes Neurological History: Peripheral Neuropathy ENT History: No Pertinent History Cardiac History: Myocardial Infarction ([place]) Respiratory History: Asthma Endocrine Medical History: No Pertinent History Musculoskeletal History: Arthritis GI Medical History: No Pertinent History History: No Pertinent History Psycho-Social History: Depression, Other Male Reproductive Disorders: Other Other Medical History: DENTAL CARIES/ABSCESS, ADHD - Past Surgical History Past Surgical History: Yes Neuro Surgical History: No Pertinent History Cardiac: Cardiac Catheterization Respiratory: No Pertinent History Gastrointestinal: No Pertinent History Genitourinary: No Pertinent History Musculoskeletal: Orthopedic Surgery Male Surgical History: No Pertinent History Other Surgical History: HX VASECTOMY, HX Carpal Tunnel - Social History Smoking Status: Current some day smoker How long have you smoked: 35 years Exposure to second hand smoke: Yes Drug Use: none Patient Lives Alone: No - Nursing Vital Signs Nursing Vital Signs: Initial Vital Signs Temperature 98.1 F 02/20/22 09:27 Pulse Rate 99 H 02/20/22 09:27 Respiratory Rate 20 02/20/22 09:27 Blood Pressure 125/98 02/20/22 09:27 O2 Sat by Pulse Oximetry 97 02/20/22 09:27 Pain Scale Pain Intensity 9 - Physical Exam General Appearance: no apparent distress, alert, anxiety, thin Eye Exam: PERRL/EOMI, eyes nml inspection Ears, Nose, Throat Exam: normal ENT inspection, moist mucous membranes Neck Exam: normal inspection Respiratory Exam: normal breath sounds Cardiovascular Exam: regular rate/rhythm Gastrointestinal/Abdomen Exam: soft, normal bowel sounds, No tenderness Rectal Exam: not done Back Exam: normal inspection, normal range of motion, No CVA tenderness, No vertebral tenderness Extremity Exam: normal inspection, normal range of motion, pelvis stable Neurologic Exam: alert, oriented x 3, cooperative, 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 Today's EKG is improved over that twelve-lead EKG performed on 01/25/2022 with resolution of the nonspecific ST changes.) Ordered Tests: Active Orders 24 hr Category Date Time Status EKG-ER Only STAT Care 02/20/22 09:31 Active IV Insertion STAT Care 02/20/22 09:31 Active Pulse Oximetry (ED) STAT Care 02/20/22 09:31 Active CHEST 1 VIEW (PORTABLE) Stat Exams 02/20/22 09:31 Completed CBC W DIFF Stat Lab 02/20/22 09:40 Completed CMP Stat Lab 02/20/22 09:40 Completed D-DIMER QUANTITATIVE Stat Lab 02/20/22 09:40 Completed NT PRO BNP Stat Lab 02/20/22 09:40 Completed TROPONIN Q4H Lab 02/20/22 09:40 Completed TROPONIN Q4H Lab 02/20/22 13:45 Ordered TROPONIN Q4H Lab 02/20/22 17:45 Ordered Medication Summary Discontinued Medications Generic Name Dose Route Start Last Admin Trade Name Freq PRN Reason Stop Dose Admin Aspirin 324 mg 02/20/22 09:31 02/20/22 09:39 Aspirin 81 Mg Tab.Chew PO 02/20/22 09:32 324 mg STAT ONE Administration Lab/Rad Data: Laboratory Result Diagrams 02/20/22 09:40 02/20/22 09:40 Laboratory Results 02/20/22 02/20/22 02/20/22 Range/Units 09:40 09:40 09:40 WBC (4.0-10.5) x10^3/uL RBC (4.1-5.6) x10^6/uL Hgb (12.5-18.0) g/dL Hct (42-50) % MCV (78-100) fL MCH (26-32) pg MCHC (32-36) g/dL RDW (11.5-14.0) % Plt Count (150-450) x10^3/uL MPV (7.5-11.0) fL Gran % (36.0-66.0) % Immature Gran % (Auto) (0.00-0.4) % Nucleat RBC Rel Count (0.00-0.1) % Eos # (Auto) (0-0.5) x10^3/uL Immature Gran # (Auto) (0.00-0.03) x10^3u/L Absolute Lymphs (auto) (1.0-4.6) x10^3/uL Absolute Monos (auto) (0.0-1.3) x10^3/uL Absolute Nucleated RBC (0.00-0.01) x10^3u/L Lymphocytes % (24.0-44.0) % Monocytes % (0.0-12.0) % Eosinophils % (0.00-5.0) % Basophils % (0.0-0.4) % Absolute Granulocytes (1.4-6.9) x10^3/uL Basophils # (0-0.4) x10^3/uL D-Dimer < 0.19 (0.0-0.50) mg/L Sodium 137 (137-145) mmol/L Potassium 4.2 (3.5-5.1) mmol/L Chloride 108 H (98-107) mmol/L Carbon Dioxide 24 (22-30) mmol/L Anion Gap 8.9 (5-15) MEQ/L BUN 11 (9-20) mg/dL Creatinine 0.61 L (0.66-1.25) mg/dL Estimated GFR > 60.0 ML/MIN Glucose 102 (74-106) mg/dL Calcium 8.4 (8.4-10.2) mg/dL Total Bilirubin 0.40 (0.2-1.3) mg/dL AST 30 (17-59) U/L ALT 17 (0-50) U/L Alkaline Phosphatase 49 (38-126) U/L Troponin I 0.012 (0.000-0.034) ng/mL NT-Pro-B Natriuret Pep 595 H (0-450) pg/mL Serum Total Protein 6.7 (6.3-8.2) g/dL Albumin 4.0 (3.5-5.0) g/dL 02/20/22 Range/Units 09:40 WBC 9.4 (4.0-10.5) x10^3/uL RBC 4.30 (4.1-5.6) x10^6/uL Hgb 12.4 L (12.5-18.0) g/dL Hct 38.8 L (42-50) % MCV 90.2 (78-100) fL MCH 28.8 (26-32) pg MCHC 32.0 (32-36) g/dL RDW 13.5 (11.5-14.0) % Plt Count 223 (150-450) x10^3/uL MPV 12.0 H (7.5-11.0) fL Gran % 67.3 H (36.0-66.0) % Immature Gran % (Auto) 0.2 (0.00-0.4) % Nucleat RBC Rel Count 0.0 (0.00-0.1) % Eos # (Auto) 0.34 (0-0.5) x10^3/uL Immature Gran # (Auto) 0.02 (0.00-0.03) x10^3u/L Absolute Lymphs (auto) 2.11 (1.0-4.6) x10^3/uL Absolute Monos (auto) 0.53 (0.0-1.3) x10^3/uL Absolute Nucleated RBC 0.00 (0.00-0.01) x10^3u/L Lymphocytes % 22.5 L (24.0-44.0) % Monocytes % 5.7 (0.0-12.0) % Eosinophils % 3.6 (0.00-5.0) % Basophils % 0.7 (0.0-0.4) % Absolute Granulocytes 6.31 (1.4-6.9) x10^3/uL Basophils # 0.07 (0-0.4) x10^3/uL D-Dimer (0.0-0.50) mg/L Sodium (137-145) mmol/L Potassium (3.5-5.1) mmol/L Chloride (98-107) mmol/L Carbon Dioxide (22-30) mmol/L Anion Gap (5-15) MEQ/L BUN (9-20) mg/dL Creatinine (0.66-1.25) mg/dL Estimated GFR ML/MIN Glucose (74-106) mg/dL Calcium (8.4-10.2) mg/dL Total Bilirubin (0.2-1.3) mg/dL AST (17-59) U/L ALT (0-50) U/L Alkaline Phosphatase (38-126) U/L Troponin I (0.000-0.034) ng/mL NT-Pro-B Natriuret Pep (0-450) pg/mL Serum Total Protein (6.3-8.2) g/dL Albumin (3.5-5.0) g/dL - Progress Progress: improved, re-examined Air Movement: good Progress Note: 02/20/22 09:56 Chest x-ray shows no acute cardiopulmonary process. There is no acute findings. 02/20/22 10:52 Medical decision making: This patient currently has no chest pain. He is concerned about his persistent cough. There are are no radiographic findings of pneumonia. I will refill load volume of his hydrocodone elixir. We will check a 3-hour troponin and if this is normal we will discharge him to home. 02/20/22 10:55 Patient is not allergic to acetaminophen. He has taken plain Tylenol in the past. He also has taken hydrocodone with acetaminophen in the past for bronchitis/cough control Blood Culture(s) Obtained: No Antibiotics given: No Counseled pt/family regarding: lab results, diagnosis, need for follow-up, rad results - Departure Departure Disposition: Home Clinical Impression: Bronchitis, Non-cardiac chest pain Condition: Stable Critical Care Time: No Referrals: CHARITY MANNING [Primary Care Provider] - Follow up/PCP as directed Additional Instructions: Drink plenty of fluids. Stop smoking cigarettes. Stop vaping. Follow-up with your primary care physician and guard sergeant for further evaluation and management. Prescriptions: Hydrocodone/Acetaminophen [Hydrocodone-Acetamn 7.5-325/15] 10 ml PO Q8H PRN PRN #60 ml MDD 30 ml PRN Reason: Cough
[2022-02-20 09:53] LABS: Absolute Neutrophil Ct (ANC) 6.31 x10^3/uL (1.4-6.9); Basophil (Absolute #) 0.07 x10^3/uL (0-0.4); Eosinophil % 3.6 % (0.00-5.0); Eosinophil (Absolute #) 0.34 x10^3/uL (0-0.5); Hematocrit 38.8 % (42-50); Hemoglobin 12.4 g/dL (12.5-18.0); Lymphocyte (Absolute #) 2.11 x10^3/uL (1.0-4.6); Lymphocytes % 22.5 % (24.0-44.0); Mean Cell Volume 90.2 fL (78-100); Mean Corpuscular Hemoglobin 28.8 pg (26-32); Monocyte (Absolute #) 0.53 x10^3/uL (0.0-1.3); Monocytes % 5.7 % (0.0-12.0); Neutrophil % 67.3 % (36.0-66.0); Platelet Count 223 x10^3/uL (150-450); Red Cell Distribution Width 13.5 % (11.5-14.0); White Blood Count 9.4 x10^3/uL (4.0-10.5)
--- NOTE | 2022-02-20 09:53 | XRAY ---
Indication: Chest pain and cough. Asthma. Comparison: January 25, 2022 Portable chest now demonstrates normal heart and lungs. Bony thorax intact. No new/acute findings.
[2022-02-20 10:17] LABS: ALKALINE PHOSPHATASE 49 U/L (38-126); ANION GAP 8.9 MEQ/L (5-15); BLOOD UREA NITROGEN 11 mg/dL (9-20); CHLORIDE 108 mmol/L (98-107); Calcium 8.4 mg/dL (8.4-10.2); Carbon Dioxide 24 mmol/L (22-30); Creatinine 1 0.61 mg/dL (0.66-1.25); EST GLOMERULAR FILTRATION RATE > 60.0 ML/MIN; Glucose 102 mg/dL (74-106); NT PRO BNP 595 pg/mL (0-450); Potassium 4.2 mmol/L (3.5-5.1); SGOT/AST 30 U/L (17-59); SGPT/ALT 17 U/L (0-50); SODIUM 137 mmol/L (137-145); Total Protein 6.7 g/dL (6.3-8.2)
[2022-02-20 12:03] VITALS: BP 126/84
[2022-02-20 13:02] VITALS: PULSE 83
[2022-02-20 13:42] VITALS: O2SAT 97
== END 2022-02-20 13:47 | disposition home or self-care (01) ==
LOC: ED 09:21
DX: J40 Bronchitis, not specified as acute or chronic (principal); R07.89 Other chest pain; E78.5 Hyperlipidemia, unspecified; Z72.0 Tobacco use; Z79.891 Long term (current) use of opiate analgesic; Z79.02 Long term (current) use of antithrombotics/antiplatelets; Z79.899 Other long term (current) drug therapy; Z28.310 Unvaccinated for COVID-19
CPT/HCPCS: 36000; 36415; 71045; 80053; 83880; 84484; 85025; 85379; 93005; 94760; 99284; A9270-GY

== ENCOUNTER 2022-04-10 08:50 | Emergency (ER) | payer OTHER ==
[2022-04-10] MEDS ORDERED: Nitrostat 0.4 MG (ED) SL ONE ×2 (08:58→09:07)
[2022-04-10 09:11] LABS: Absolute Neutrophil Ct (ANC) 6.16 x10^3/uL (1.4-6.9); Basophil (Absolute #) 0.11 x10^3/uL (0-0.4); Eosinophil % 4.7 % (0.00-5.0); Eosinophil (Absolute #) 0.48 x10^3/uL (0-0.5); Hematocrit 48.9 % (42-50); Hemoglobin 15.4 g/dL (12.5-18.0); Lymphocyte (Absolute #) 2.66 x10^3/uL (1.0-4.6); Lymphocytes % 25.9 % (24.0-44.0); Mean Cell Volume 92.3 fL (78-100); Mean Corpuscular Hemoglobin 29.1 pg (26-32); Mean Corpuscular Hgb Concent. 31.5 g/dL (32-36); Monocyte (Absolute #) 0.86 x10^3/uL (0.0-1.3); Monocytes % 8.4 % (0.0-12.0); Neutrophil % 59.7 % (36.0-66.0); Platelet Count 231 x10^3/uL (150-450); Red Cell Distribution Width 14.2 % (11.5-14.0); White Blood Count 10.3 x10^3/uL (4.0-10.5)
[2022-04-10 09:28] LABS: INR 0.97 (0.8-3.0); PROTIME 10.3 SECONDS (9.4-12.5); PTT 22.7 SECONDS (25.1-36.5)
[2022-04-10] MEDS ORDERED: Nitrostat 0.4 MG Tablet SL ONE (09:31)
[2022-04-10 09:35] LABS: ALBUMIN 4.5 g/dL (3.5-5.0); ALKALINE PHOSPHATASE 66 U/L (38-126); ANION GAP 11.7 MEQ/L (5-15); BLOOD UREA NITROGEN 15 mg/dL (9-20); CHLORIDE 113 mmol/L (98-107); Calcium 8.9 mg/dL (8.4-10.2); Carbon Dioxide 20 mmol/L (22-30); Creatinine 1 0.62 mg/dL (0.66-1.25); EST GLOMERULAR FILTRATION RATE > 60.0 ML/MIN; Glucose 101 mg/dL (74-106); NT PRO BNP 234 pg/mL (0-450); Potassium 4.5 mmol/L (3.5-5.1); SGOT/AST 40 U/L (17-59); SGPT/ALT 35 U/L (0-50); SODIUM 140 mmol/L (137-145); Total Protein 7.3 g/dL (6.3-8.2)
--- NOTE | 2022-04-10 09:41 | ERPHSYRPT ---
- History of Present Illness Historian: patient Exam Limitations: no limitations Patient Subjective Stated Complaint: Pt reports chest pain started at 0730 this morning, he took 5 tablets of 81mg aspirin and no nitro. Selwyn Velasquez is his fitness coach, who pt reports instructed him to come to ER. Reports hx of 2MI in Dec, unable to stent and trying to hold off on open heart surgery. Triage Nursing Assessment: Pt ambulated to cot without difficulty, holding chest. Alert and oriented x3. Skin W/D/P. No apparent respiratory distress. Lungs clear throughout. S1 and S2 auscultated. Physician History: 46 yo WM w h/o PA x2 in 01/01 presents w mid-sternal chest pain described as "burning" x90 minutes. He had associated R wrist pain but denies radiation. Pain is 10 on scale and nothing makes it better or worse. Pt took 4-81mg ASA at his house but did not take any NTG. Pain is accompanied by N/V/dyspnea wo diaphoresis. He states that he has had cath's x2 at [facility] wo stents. Dr. Velasquez is his fitness coach, and he is being considered for a CABG. He has HTN/Hyperlipidemia/smokes 1ppd/significant family h/o CAD. Pt given 1 SL NTG upon ER arrival w improvement in pain from 10 to a 6. He was getting ready for work when it started. Timing/Duration: other (90minutes) Quality: burning Location: substernal Chest Pain Radiation: no radiation (Associated R wrist pain) Severity of Pain-Max: severe Severity of Pain-Current: severe Modifying Factors: Improves With: nothing Associated Symptoms: nausea, vomiting, shortness of breath Prior Chest Pain/Cardiac Workup: cardiac cath Nitro Today/Relief: no nitro taken today Aspirin Treatment Today: 325 mg x 1 Allergies/Adverse Reactions: dicyclomine Allergy (Severe, Verified 04/10/22 11:47) Tightness of Throat acetaminophen [From Darvocet-N 100] Allergy (Mild, Verified 04/10/22 11:47) throat swelling propoxyphene napsylate [From Darvocet-N 100] Allergy (Mild, Verified 04/10/22 11:47) throat swelling sulfamethoxazole [From Bactrim DS] Allergy (Verified 04/10/22 11:47) Rash trimethoprim [From Bactrim DS] Allergy (Verified 04/10/22 11:47) Rash Home Medications: Bupropion HCl 150 mg Sr [Wellbutrin SR 150 MG] 150 mg PO BID 12/10/21 [History] Aspirin EC 81 mg [Ecotrin 81 mg] 81 mg PO DAILY 12/19/21 [History] Atorvastatin Calcium [Lipitor] 80 mg PO DAILY 12/19/21 [History] Clopidogrel Bisulfate [Clopidogrel] 75 mg PO DAILY 12/19/21 [History] Clopidogrel Bisulfate [Plavix] 75 mg PO DAILY 04/10/22 [History] Hx Tetanus, Diphtheria Vaccination/Date Given: Yes Hx Influenza Vaccination/Date Given: No Hx Pneumococcal Vaccination/Date Given: No Travel Risk - International Travel Have you traveled outside of the country in past 3 weeks: No - Coronavirus Screening Are you exhibiting any of the following symptoms?: No Close contact with a COVID-19 positive Pt in past 14-21 Days: No - Vaccine Status Have you recieved a Covid-19 vaccination: No - Review of Systems Constitutional: No Symptoms Eyes: No Symptoms Ears, Nose, & Throat: No Symptoms Respiratory: No Symptoms Cardiac: No Symptoms, Chest Pain Abdominal/Gastrointestinal: No Symptoms, Nausea, Vomiting Genitourinary Symptoms: No Symptoms Musculoskeletal: No Symptoms Skin: No Symptoms Neurological: No Symptoms Psychological: No Symptoms Endocrine: No Symptoms Hematologic/Lymphatic: No Symptoms Immunological/Allergic: No Symptoms - Past Medical History Pertinent Past Medical History: Yes Cardiac History: Hypertension, Myocardial Infarction ([place]) - Past Surgical History Past Surgical History: Yes Male Surgical History: Vasectomy Other Surgical History: carpel tunnel - Social History Smoking Status: Current some day smoker Exposure to second hand smoke: Yes Drug Use: none Patient Lives Alone: No - Nursing Vital Signs Nursing Vital Signs: Initial Vital Signs Temperature 96.9 F 04/10/22 08:53 Pulse Rate 98 H 04/10/22 08:53 Respiratory Rate 22 04/10/22 08:53 Blood Pressure 171/99 04/10/22 08:53 O2 Sat by Pulse Oximetry 99 04/10/22 08:53 Pain Scale Pain Intensity 4 - Physical Exam General Appearance: no apparent distress, anxiety Eye Exam: PERRL/EOMI, eyes nml inspection Ears, Nose, Throat Exam: normal ENT inspection, TMs normal, pharynx normal, moist mucous membranes Neck Exam: normal inspection, non-tender, supple, full range of motion, No me ningismus, No mass, No Brudzinski, No Kernig's Respiratory Exam: normal breath sounds, lungs clear, airway intact Cardiovascular Exam: regular rate/rhythm, normal heart sounds, normal peripheral pulses, murmur, capillary refill <2 sec Gastrointestinal/Abdomen Exam: soft, normal bowel sounds, No tenderness Back Exam: normal inspection, normal range of motion Extremity Exam: normal inspection, normal range of motion Neurologic Exam: alert, oriented x 3, 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, 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, normal mood/affect, nml cerebellar function, nml station & gait, sensation nml Skin Exam: normal color, warm, dry Lymphatic Exam: No adenopathy SpO2 Interpretation: normal SpO2: 99 O2 Delivery: Room Air - Course Nursing assessment & vital signs reviewed: Yes EKG Interpreted by Me: RATE (NSR/Rate 94/Mildly prolonged QTc/No acute ST segment changes) - Radiology Exams Chest X-ray Interpretation: Discussed w/ radiologist (CXR wnl) Ordered Tests: Active Orders 24 hr Category Date Time Status EKG-ER Only STAT Care 04/10/22 08:58 Active IV Insertion STAT Care 04/10/22 08:58 Active CHEST 1 VIEW (PORTABLE) Stat Exams 04/10/22 08:58 Completed CBC W DIFF Stat Lab 04/10/22 08:58 Completed CMP Stat Lab 04/10/22 08:58 Completed NT PRO BNP Stat Lab 04/10/22 08:58 Completed PROTIME WITH INR Stat Lab 04/10/22 08:58 Completed PTT Stat Lab 04/10/22 08:58 Completed TROPONIN Q4H Lab 04/10/22 08:58 Completed TROPONIN Q4H Lab 04/10/22 11:12 Completed TROPONIN Q4H Lab 04/10/22 17:00 Ordered Medication Summary Discontinued Medications Generic Name Dose Route Start Last Admin Trade Name Freq PRN Reason Stop Dose Admin Morphine Sulfate 4 mg 04/10/22 10:14 04/10/22 10:18 Morphine Sulfate 4 Mg/Ml Injection IV 04/10/22 10:15 4 mg STAT ONE Administration Morphine Sulfate Confirm 04/10/22 10:17 Morphine Sulfate 4 Mg/Ml Injection Administered 04/10/22 10:18 Dose 4 mg .ROUTE .STK-MED ONE Nitroglycerin 0.4 mg 04/10/22 08:58 04/10/22 09:07 Nitroglycerin 0.4 Mg (Ed) 0.4 Mg Tab.Subl SL 04/10/22 08:59 0.4 mg STAT ONE Administration Nitroglycerin Confirm 04/10/22 09:07 Nitroglycerin 0.4 Mg (Ed) 0.4 Mg Tab.Subl Administered 04/10/22 09:08 Dose 0.4 mg SL .STK-MED ONE Nitroglycerin 0.4 mg 04/10/22 09:31 04/10/22 09:32 Nitroglycerin 0.4 Mg Tablet Bottle SL 04/10/22 09:32 0.4 mg STAT ONE Administration Ondansetron HCl 4 mg 04/10/22 10:14 04/10/22 10:18 Ondansetron Hcl 4 Mg/2 Ml Vial IV 04/10/22 10:15 4 mg STAT ONE Administration Ondansetron HCl Confirm 04/10/22 10:17 Ondansetron Hcl 4 Mg/2 Ml Vial Administered 04/10/22 10:18 Dose 4 mg .ROUTE .STK-MED ONE Lab/Rad Data: Laboratory Result Diagrams 04/10/22 08:58 04/10/22 08:58 Laboratory Results 04/10/22 04/10/22 04/10/22 Range/Units 11:12 08:58 08:58 WBC (4.0-10.5) x10^3/uL RBC (4.1-5.6) x10^6/uL Hgb (12.5-18.0) g/dL Hct (42-50) % MCV (78-100) fL MCH (26-32) pg MCHC (32-36) g/dL RDW (11.5-14.0) % Plt Count (150-450) x10^3/uL MPV (7.5-11.0) fL Gran % (36.0-66.0) % Immature Gran % (Auto) (0.00-0.4) % Nucleat RBC Rel Count (0.00-0.1) % Eos # (Auto) (0-0.5) x10^3/uL Immature Gran # (Auto) (0.00-0.03) x10^3u/L Absolute Lymphs (auto) (1.0-4.6) x10^3/uL Absolute Monos (auto) (0.0-1.3) x10^3/uL Absolute Nucleated RBC (0.00-0.01) x10^3u/L Lymphocytes % (24.0-44.0) % Monocytes % (0.0-12.0) % Eosinophils % (0.00-5.0) % Basophils % (0.0-0.4) % Absolute Granulocytes (1.4-6.9) x10^3/uL Basophils # (0-0.4) x10^3/uL PT 10.3 (9.4-12.5) SECONDS INR 0.97 (0.8-3.0) APTT 22.7 L (25.1-36.5) SECONDS Sodium (137-145) mmol/L Potassium (3.5-5.1) mmol/L Chloride (98-107) mmol/L Carbon Dioxide (22-30) mmol/L Anion Gap (5-15) MEQ/L BUN (9-20) mg/dL Creatinine (0.66-1.25) mg/dL Estimated GFR ML/MIN Glucose (74-106) mg/dL Calcium (8.4-10.2) mg/dL Total Bilirubin (0.2-1.3) mg/dL AST (17-59) U/L ALT (0-50) U/L Alkaline Phosphatase (38-126) U/L Troponin I < 0.012 < 0.012 (0.000-0.034) ng/mL NT-Pro-B Natriuret Pep (0-450) pg/mL Serum Total Protein (6.3-8.2) g/dL Albumin (3.5-5.0) g/dL 04/10/22 04/10/22 Range/Units 08:58 08:58 WBC 10.3 (4.0-10.5) x10^3/uL RBC 5.30 (4.1-5.6) x10^6/uL Hgb 15.4 (12.5-18.0) g/dL Hct 48.9 (42-50) % MCV 92.3 (78-100) fL MCH 29.1 (26-32) pg MCHC 31.5 L (32-36) g/dL RDW 14.2 H (11.5-14.0) % Plt Count 231 (150-450) x10^3/uL MPV 12.0 H (7.5-11.0) fL Gran % 59.7 (36.0-66.0) % Immature Gran % (Auto) 0.2 (0.00-0.4) % Nucleat RBC Rel Count 0.0 (0.00-0.1) % Eos # (Auto) 0.48 (0-0.5) x10^3/uL Immature Gran # (Auto) 0.02 (0.00-0.03) x10^3u/L Absolute Lymphs (auto) 2.66 (1.0-4.6) x10^3/uL Absolute Monos (auto) 0.86 (0.0-1.3) x10^3/uL Absolute Nucleated RBC 0.00 (0.00-0.01) x10^3u/L Lymphocytes % 25.9 (24.0-44.0) % Monocytes % 8.4 (0.0-12.0) % Eosinophils % 4.7 (0.00-5.0) % Basophils % 1.1 (0.0-0.4) % Absolute Granulocytes 6.16 (1.4-6.9) x10^3/uL Basophils # 0.11 (0-0.4) x10^3/uL PT (9.4-12.5) SECONDS INR (0.8-3.0) APTT (25.1-36.5) SECONDS Sodium 140 (137-145) mmol/L Potassium 4.5 (3.5-5.1) mmol/L Chloride 113 H (98-107) mmol/L Carbon Dioxide 20 L (22-30) mmol/L Anion Gap 11.7 (5-15) MEQ/L BUN 15 (9-20) mg/dL Creatinine 0.62 L (0.66-1.25) mg/dL Estimated GFR > 60.0 ML/MIN Glucose 101 (74-106) mg/dL Calcium 8.9 (8.4-10.2) mg/dL Total Bilirubin 0.60 (0.2-1.3) mg/dL AST 40 (17-59) U/L ALT 35 (0-50) U/L Alkaline Phosphatase 66 (38-126) U/L Troponin I (0.000-0.034) ng/mL NT-Pro-B Natriuret Pep 234 (0-450) pg/mL Serum Total Protein 7.3 (6.3-8.2) g/dL Albumin 4.5 (3.5-5.0) g/dL - Progress Progress: improved Progress Note: 04/10/22 12:30 NTG x2 w mild improvement in pain 4mg IV MSO4/4mg IV Zofran w marked improvement in pain It was advised that pt be admitted/observed due to known CAD/PA, but he refused. Risks explained to pt, including PA/. Counseled pt/family regarding: lab results, diagnosis, need for follow-up, rad results - Departure Departure Disposition: AMA Clinical Impression: Chest pain Condition: Stable Critical Care Time: Yes Critical Care Time(excluding separately billable procedures): Critical 30-74 mins Referrals: [facility] [NON-STAFF PHY W/O PRIVILEGES] - Follow up/PCP as directed Instructions: Angina (DC), Chest Pain (DC) Additional Instructions: Follow up with Dr. Velasquez Return to ER for chest pain or shortness of breath
--- NOTE | 2022-04-10 09:43 | XRAY ---
Indication: Chest pain. Comparison: None Portable apical lordotic chest hyperinflated with minimal right midlung subsegmental atelectasis/scarring. Remaining heart and lungs unremarkable. Bony thorax intact.
[2022-04-10] MEDS ORDERED: MORPHINE SULFATE 4 MG INJ IV ONE (10:14)
[2022-04-10] MEDS ORDERED: Zofran 4 MG/2 ML VIAL IV ONE (10:14)
[2022-04-10] MEDS ORDERED: MORPHINE SULFATE 4 MG INJ ONE (10:17)
[2022-04-10] MEDS ORDERED: Zofran 4 MG/2 ML VIAL ONE (10:17)
[2022-04-10 10:18] VITALS: BP 123/82
[2022-04-10 12:06] VITALS: PULSE 87
[2022-04-10 12:12] VITALS: O2SAT 99
== END 2022-04-10 12:41 | disposition left against medical advice (07) ==
LOC: ED 08:50 → MERGE 08:50 → ED 12:41
DX: R07.9 Chest pain, unspecified (principal); R11.2 Nausea with vomiting, unspecified; R06.00 Dyspnea, unspecified; M25.531 Pain in right wrist; I10 Essential (primary) hypertension; Z79.02 Long term (current) use of antithrombotics/antiplatelets; Z79.899 Other long term (current) drug therapy; Z28.310 Unvaccinated for COVID-19; Z72.0 Tobacco use
CPT/HCPCS: 36000; 36415; 71045; 80053; 83880; 84484; 85025; 85610; 85730; 93005; 96374; 96375; 99284; J2270; J2405; A9270-GY

== ENCOUNTER 2022-05-29 08:52 | Day surgery (SDC) | payer OTHER ==
[2022-05-29] MEDS ORDERED: Lactated Ringers 1,000 ML IV SCH (09:00)
[2022-05-29] MEDS ORDERED: CLINDAMYCIN-D5W 900 MG/50 ML*** 900 MG/50 ML BAG IV ONE (09:20)
[2022-05-29] MEDS ORDERED: CLINDAMYCIN-D5W 900 MG/50 ML*** 900 MG/50 ML BAG IV SCH (09:30)
[2022-05-29] MEDS ORDERED: Sensorcaine 0.25% 10 ML ONE ×2 (10:49→11:50)
[2022-05-29] MEDS ORDERED: Xylocaine 1% Vial 30 ML PF IJ ONE (10:49)
[2022-05-29] MEDS ORDERED: DUONEB 0.5-3 MG/3 ml Neb IH ONE (11:26)
--- NOTE | 2022-05-29 11:26 | XRAY ---
Indication: Nasal congestion. COPD. Comparison: April 10, 2022 Portable chest remains hyperinflated and clear. Heart not enlarged. Bony thorax intact. No new/acute findings.
[2022-05-29] MEDS ORDERED: DIPRIVAN 200 MG/20 ML IV ONE ×2 (11:37→12:22)
[2022-05-29] MEDS ORDERED: SUBLIMAZE 100 MCG/2 ML ONE (11:37)
[2022-05-29] MEDS ORDERED: Versed 2 MG/2 ML Injection ONE (11:38)
[2022-05-29] MEDS ORDERED: Xylocaine-Mpf 2% 5 Ml Vial ONE (11:48)
--- NOTE | 2022-05-29 13:00 | XRAY ---
Indication: Left foot foreign body removal. Intraoperative fluoroscopy provided for 1 second. 2 digital spot images submitted for interpretation demonstrates foreign body removal adjacent to 1st MTP. Correlate with intraoperative findings/report.
[2022-05-29 13:25] VITALS: O2SAT 98
[2022-05-29 14:02] VITALS: BP 136/78; PULSE 87
--- NOTE | 2022-05-29 14:39 | XRAY ---
1 second of fluoroscopy was used in surgery for foreign body removal of left foot.
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
== END 2022-05-29 14:10 | disposition home or self-care (01) ==
LOC: SDC 08:52
PROVIDERS: ATTEND Podiatrist Foot & Ankle Surgery
DX: S91.342A Puncture wound with foreign body, left foot, initial encounter (principal); M79.672 Pain in left foot; L03.116 Cellulitis of left lower limb
CPT/HCPCS: 71045; 73630; 76000; 93005; 94640; J2001; J2250; J2704; J3010; A9270-GY

== ENCOUNTER 2022-08-17 04:36 | Observation (INO) | payer OTHER ==
--- NOTE | 2022-08-17 04:58 | ERPHSYRPT ---
<CALLIE CORTEZ Elisabeth - Last Filed: 08/17/22 06:55> - History of Present Illness Time Seen by Provider: 08/17/22 04:58 Historian: patient Exam Limitations: no limitations Patient Subjective Stated Complaint: chest pain x2 days that started after hiking with family, pt has taken 3 nitros yesterday, and one nitro around 0345 Triage Nursing Assessment: pt ambulatory to bed by self, pt alert and oriented x3, pt c/o intermittent chest pain x2 days after hiking on wednesday, pt took 3 nitros yesterday, pt woke up around 0330 with sudden onset 10/10chest pain, pt then proceeded to take one nitro at 0345, pain has seen subsided since patient arrival, pt has hx of 2 MIs, pt denies any cardiac stents, value engineer is Layo Velasquez Physician History: 47-year-old male presents to the emergency room with chest pain for the past 2 days. He reports that he was initially [place] when he started having retrosternal chest pain radiating to his left wrist. Over the course of the last 2 days he has taken 6 nitro tablets that have provided some relief. He also has associated nausea and vomiting no diaphoresis noted. His current pain is still located in the center of his chest, but does not have any radiating symptoms today. He is a daily smoker and has hypertension, but no diabetes. Family history of CAD reported. Patient also states that he had 2 MIs in December where catheterization was attempted but no stents were placed. He reports that his maker is blocked and they were unable to get a stent placed. Timing/Duration: day(s) (2) Activities at Onset: activity, rest Quality: pressure, sharpness, tightness Location: substernal Chest Pain Radiation: arm (left wrist during multiple episodes, but no radiation at this time) Severity of Pain-Max: severe Severity of Pain-Current: moderate Modifying Factors: Improves With: nitroglycerin. Worsens With: exertion Associated Symptoms: nausea, vomiting, No abdominal pain, No shortness of breat h, No cough, No diaphoresis, No chills, No fever, No edema, No back pain Prior Chest Pain/Cardiac Workup: cardiac cath, heart attack Nitro Today/Relief: 0.4 mg x 1, provided by ED Aspirin Treatment Today: 81 mg x 4, provided by ED Allergies/Adverse Reactions: dicyclomine Allergy (Severe, Verified 08/17/22 04:37) Tightness of Throat acetaminophen [From Darvocet-N 100] Allergy (Mild, Verified 08/17/22 04:37) throat swelling propoxyphene napsylate [From Darvocet-N 100] Allergy (Mild, Verified 08/17/22 04:37) throat swelling sulfamethoxazole [From Bactrim DS] Allergy (Verified 08/17/22 04:37) Rash trimethoprim [From Bactrim DS] Allergy (Verified 08/17/22 04:37) Rash Home Medications: Aspirin EC 81 mg [Ecotrin 81 mg] 81 mg PO DAILY 12/19/21 [History] Clopidogrel Bisulfate [Plavix] 75 mg PO DAILY 04/10/22 [History] Vilazodone HCl [Viibryd] 1 tab PO UD 05/28/22 [History] Hx Tetanus, Diphtheria Vaccination/Date Given: Yes Hx Influenza Vaccination/Date Given: No Hx Pneumococcal Vaccination/Date Given: No Travel Risk - International Travel Have you traveled outside of the country in past 3 weeks: No - Coronavirus Screening Are you exhibiting any of the following symptoms?: No Close contact with a COVID-19 positive Pt in past 14-21 Days: No - Vaccine Status Have you recieved a Covid-19 vaccination: No - Review of Systems Constitutional: No Symptoms Eyes: No Symptoms Ears, Nose, & Throat: No Symptoms Respiratory: No Symptoms Cardiac: Chest Pain, No Edema, No Palpitations, No Orthopnea, No PND Abdominal/Gastrointestinal: Nausea, Vomiting, No Abdominal Pain, No Diarrhea, No Appetite Changes Genitourinary Symptoms: No Symptoms Musculoskeletal: No Symptoms Skin: No Symptoms Neurological: No Symptoms Psychological: No Symptoms Endocrine: No Symptoms Hematologic/Lymphatic: No Symptoms Immunological/Allergic: No Symptoms All Other Systems: Reviewed and Negative - Past Medical History Pertinent Past Medical History: Yes Neurological History: Peripheral Neuropathy ENT History: No Pertinent History Cardiac History: Myocardial Infarction (OR), Hypertension Respiratory History: Asthma Endocrine Medical History: No Pertinent History Musculoskeletal History: Arthritis GI Medical History: No Pertinent History History: No Pertinent History Psycho-Social History: Depression, Other Male Reproductive Disorders: Other Other Medical History: DENTAL CARIES/ABSCESS, ADHD - Past Surgical History Past Surgical History: Yes Neuro Surgical History: No Pertinent History Cardiac: Cardiac Catheterization Respiratory: No Pertinent History Gastrointestinal: No Pertinent History Genitourinary: No Pertinent History Musculoskeletal: Orthopedic Surgery Male Surgical History: No Pertinent History, Vasectomy Other Surgical History: carpel tunnel, failed heart cath - Social History Smoking Status: Current some day smoker How long have you smoked: 24 years Exposure to second hand smoke: Yes Drug Use: none Patient Lives Alone: No - Physical Exam General Appearance: no apparent distress Eye Exam: eyes nml inspection Ears, Nose, Throat Exam: normal ENT inspection Neck Exam: normal inspection Respiratory Exam: normal breath sounds, lungs clear, airway intact, No chest tenderness, No respiratory distress Cardiovascular Exam: regular rate/rhythm, normal heart sounds, capillary refill <2 sec, No edema Gastrointestinal/Abdomen Exam: soft, normal bowel sounds, No tenderness, No distention, No guarding, No rebound Back Exam: normal inspection, normal range of motion Extremity Exam: normal inspection, normal range of motion, No swelling, No tenderness Neurologic Exam: alert, oriented x 3, cooperative Skin Exam: normal color, warm, dry Lymphatic Exam: No adenopathy SpO2 Interpretation: normal SpO2: 98 O2 Delivery: Room Air - Course Nursing assessment & vital signs reviewed: Yes EKG Interpreted by Me: RATE (77), Sinus Rhythm, NORMAL AXIS, NORMAL INTERVALS, NORMAL QRS, NORMAL ST-T - Radiology Exams Chest X-ray Interpretation: Interpreted by me, Negative - Progress Progress: improved Air Movement: good Progress Note: Initial lab evaluation within normal limits. CBC and CMP all within range. Initial troponin negative. D-dimer negative. TSH was 0.83. EKG was sinus rhythm with no ST changes and normal intervals. His heart score is 4 due to this and his history of recent OR back in December I will keep the patient here for second troponin and then likely discharge after that. Patient will be signed over to Dr. Pascal at 0700. Blood Culture(s) Obtained: No Antibiotics given: No Counseled pt/family regarding: lab results, diagnosis, need for follow-up, rad results Medical Desision Making - Diagnostic Testing Diagnostic test were ordered, analyzed, and reviewed by me: Yes Radiological Interpretation: Interpreted by me - Departure Clinical Impression: Unstable angina, History of non-ST elevation myocardial infarction (NSTEMI), Chest pain, ACS (acute coronary syndrome) Condition: Stable Critical Care Time: No Referrals: CHARITY MANNING [Primary Care Provider] - Follow up/PCP as directed Instructions: Angina (DC) <RUFUS PASCAL - Last Filed: 08/17/22 08:52> - Nursing Vital Signs Nursing Vital Signs: Initial Vital Signs Pulse Rate 78 08/17/22 04:40 Respiratory Rate 12 08/17/22 04:40 Blood Pressure 132/88 08/17/22 04:40 O2 Sat by Pulse Oximetry 96 08/17/22 04:40 Pain Scale Pain Intensity 2 Ordered Tests: Active Orders 24 hr Category Date Time Status Litigation Docket Manager STAT Care 08/17/22 05:07 Active EKG-ER Only STAT Care 08/17/22 05:06 Active IV Insertion STAT Care 08/17/22 05:06 Active Pulse Oximetry (ED) STAT Care 08/17/22 05:06 Active CHEST 1 VIEW (PORTABLE) Stat Exams 08/17/22 05:06 Completed CBC W DIFF Stat Lab 08/17/22 05:10 Completed CMP Stat Lab 08/17/22 05:10 Completed D-DIMER QUANTITATIVE Stat Lab 08/17/22 05:10 Completed TROPONIN Q4H Lab 08/17/22 05:10 Completed TROPONIN Q4H Lab 08/17/22 07:22 Completed TROPONIN Q4H Lab 08/17/22 13:15 Ordered TSH, 3RD Generation Stat Lab 08/17/22 05:10 Completed Urine Triage Profile Stat Lab 08/17/22 05:06 Ordered Transfer Order Routine Transfer 08/17/22 Ordered Medication Summary Discontinued Medications Generic Name Dose Route Start Last Admin Trade Name Freq PRN Reason Stop Dose Admin Aspirin 324 mg 08/17/22 05:06 08/17/22 05:11 Aspirin 81 Mg Tab.Chew PO 08/17/22 05:07 324 mg STAT ONE Administration Sodium Chloride 1,000 mls @ 999 mls/hr 08/17/22 05:06 08/17/22 07:12 Sodium Chloride 0.9% 1000 Ml IV 08/17/22 06:06 Infused .Q1H1M STA Infusion Sodium Chloride Confirm 08/17/22 05:10 Sodium Chloride 0.9% 1000 Ml Administered 08/17/22 05:11 Dose 1,000 mls @ ud .ROUTE .STK-MED ONE Nitroglycerin 0.4 mg 08/17/22 05:06 08/17/22 05:11 Nitroglycerin 0.4 Mg (Ed) 0.4 Mg Tab.Subl SL 08/17/22 05:07 0.4 mg STAT ONE Administration Lab/Rad Data: Laboratory Result Diagrams 08/17/22 05:10 08/17/22 05:10 Laboratory Results 08/17/22 08/17/22 08/17/22 Range/Units 07:22 07:16 05:10 WBC (4.0-10.5) x10^3/uL RBC (4.1-5.6) x10^6/uL Hgb (12.5-18.0) g/dL Hct (42-50) % MCV (78-100) fL MCH (26-32) pg MCHC (32-36) g/dL RDW (11.5-14.0) % Plt Count (150-450) x10^3/uL MPV (7.5-11.0) fL Gran % (36.0-66.0) % Immature Gran % (Auto) (0.00-0.4) % Nucleat RBC Rel Count (0.00-0.1) % Eos # (Auto) (0-0.5) x10^3/uL Immature Gran # (Auto) (0.00-0.03) x10^3u/L Absolute Lymphs (auto) (1.0-4.6) x10^3/uL Absolute Monos (auto) (0.0-1.3) x10^3/uL Absolute Nucleated RBC (0.00-0.01) x10^3u/L Lymphocytes % (24.0-44.0) % Monocytes % (0.0-12.0) % Eosinophils % (0.00-5.0) % Basophils % (0.0-0.4) % Absolute Granulocytes (1.4-6.9) x10^3/uL Basophils # (0-0.4) x10^3/uL D-Dimer (0.0-0.50) mg/L Sodium (137-145) mmol/L Potassium (3.5-5.1) mmol/L Chloride (98-107) mmol/L Carbon Dioxide (22-30) mmol/L Anion Gap (5-15) MEQ/L BUN (9-20) mg/dL Creatinine (0.66-1.25) mg/dL Estimated GFR ML/MIN Glucose (74-106) mg/dL Calcium (8.4-10.2) mg/dL Total Bilirubin (0.2-1.3) mg/dL AST (17-59) U/L ALT (0-50) U/L Alkaline Phosphatase (38-126) U/L Troponin I < 0.012 < 0.012 (0.000-0.034) ng/mL Serum Total Protein (6.3-8.2) g/dL Albumin (3.5-5.0) g/dL TSH 3rd Generation (0.47-4.68) mIU/L Influenza Type A Ag NEGATIVE (NEGATIVE) Influenza Type B Ag NEGATIVE (NEGATIVE) RSV (PCR) NEGATIVE (NEGATIVE) SARS-CoV-2 (PCR) NEGATIVE (NEGATIVE) 08/17/22 08/17/22 08/17/22 Range/Units 05:10 05:10 05:10 WBC 11.1 H (4.0-10.5) x10^3/uL RBC 5.11 (4.1-5.6) x10^6/uL Hgb 15.2 (12.5-18.0) g/dL Hct 48.3 (42-50) % MCV 94.5 (78-100) fL MCH 29.7 (26-32) pg MCHC 31.5 L (32-36) g/dL RDW 14.8 H (11.5-14.0) % Plt Count 222 (150-450) x10^3/uL MPV 12.3 H (7.5-11.0) fL Gran % 61.9 (36.0-66.0) % Immature Gran % (Auto) 0.3 (0.00-0.4) % Nucleat RBC Rel Count 0.0 (0.00-0.1) % Eos # (Auto) 0.38 (0-0.5) x10^3/uL Immature Gran # (Auto) 0.03 (0.00-0.03) x10^3u/L Absolute Lymphs (auto) 2.79 (1.0-4.6) x10^3/uL Absolute Monos (auto) 0.94 (0.0-1.3) x10^3/uL Absolute Nucleated RBC 0.00 (0.00-0.01) x10^3u/L Lymphocytes % 25.2 (24.0-44.0) % Monocytes % 8.5 (0.0-12.0) % Eosinophils % 3.4 (0.00-5.0) % Basophils % 0.7 (0.0-0.4) % Absolute Granulocytes 6.85 (1.4-6.9) x10^3/uL Basophils # 0.08 (0-0.4) x10^3/uL D-Dimer 0.29 (0.0-0.50) mg/L Sodium 144 (137-145) mmol/L Potassium 4.5 (3.5-5.1) mmol/L Chloride 105 (98-107) mmol/L Carbon Dioxide 30 (22-30) mmol/L Anion Gap 13.6 (5-15) MEQ/L BUN 14 (9-20) mg/dL Creatinine 0.78 (0.66-1.25) mg/dL Estimated GFR > 60.0 ML/MIN Glucose 111 H (74-106) mg/dL Calcium 8.6 (8.4-10.2) mg/dL Total Bilirubin 0.70 (0.2-1.3) mg/dL AST 30 (17-59) U/L ALT 18 (0-50) U/L Alkaline Phosphatase 73 (38-126) U/L Troponin I (0.000-0.034) ng/mL Serum Total Protein 7.8 (6.3-8.2) g/dL Albumin 4.3 (3.5-5.0) g/dL TSH 3rd Generation 0.837 (0.47-4.68) mIU/L Influenza Type A Ag (NEGATIVE) Influenza Type B Ag (NEGATIVE) RSV (PCR) (NEGATIVE) SARS-CoV-2 (PCR) (NEGATIVE) - Progress Progress Note: Patient endorsed to Dr. Pascal at approximately 7 AM, change of shift. Exiting attending is Dr. Cortez. Patient is a 47-year-old male presents to our ED for evaluation of substernal chest pain with radiating to left arm. Patient has significant cardiovascular history including OR and existing coronary artery disease. Patient is a current smoker and has a history of hypertension. Patient's chest pain appears to be worse with activity. Physical exam at this time is nonremarkable. Patient appropriately received aspirin and nitroglycerin sublingual. Initial troponin negative. No ischemic changes observed on today's EKG. Patient's heart score is 4. In light of patient's symptomology, past medical history, reported family history and current heart score of 4 we will admit for cardiac rule out. Case discussed with Dr. Sinha who accepts admission to observation pending second troponin. Second troponin ordered. COVID test ordered and results pending. Plan of care discussed with patient. Patient agrees to admission to [facility] for further evaluation and treatment. Portions of this note were created with voice recognition technology. There may be grammatical, spelling, punctuation or sound alike errors 08/17/22 07:16 COVID test troponin #2 is negative. Testing ordered by Dr. Cortez included EKG, chest x-ray, CBC, CMP, D-dimer, troponin, TSH. Preliminary work-up essentially nonremarkable. COVID test ordered by Dr. Pascal for admission. Complexity of problem addressed is moderate, chronic illness with exacerbation, and acute condition with systemic manifestations. No critical care time Complexity of data reviewed and analyzed is moderate. Test ordered. Test r eviewed and analyzed by Dr. Pascal. Patient served as independent historian. EKG and x-ray independently reviewed by Dr. Cortez. Management discussed with Dr. Sinha who excepts admission to observation. Risk of complication and or risk morbidity/mortality patient management is high. Patient will require hospitalization for further evaluation and treatment of chest pain Plan of care decided based on shared decision making. Vital stable. Patient voices no other complaints or concerns at this time. Portions of this note were created with voice recognition technology. There may be grammatical, spelling, punctuation or sound alike errors 08/17/22 08:46 - Departure Departure Disposition: Observation
[2022-08-17] MEDS ORDERED: Nitrostat 0.4 MG (ED) SL ONE (05:06)
[2022-08-17] MEDS ORDERED: BABY ASPIRIN 81 MG CHEW PO ONE (05:06)
[2022-08-17] MEDS ORDERED: Sodium Chloride 0.9% 1000 ML 1,000 ML IV STA (05:06)
[2022-08-17] MEDS ORDERED: Sodium Chloride 0.9% 1000 ML 1,000 ML ONE (05:10)
[2022-08-17 05:18] LABS: Absolute Neutrophil Ct (ANC) 6.85 x10^3/uL (1.4-6.9); BASOPHIL % 0.7 % (0.0-0.4); Basophil (Absolute #) 0.08 x10^3/uL (0-0.4); Eosinophil % 3.4 % (0.00-5.0); Eosinophil (Absolute #) 0.38 x10^3/uL (0-0.5); Hematocrit 48.3 % (42-50); Hemoglobin 15.2 g/dL (12.5-18.0); IMMATURE GRAN # 0.03 x10^3u/L (0.00-0.03); IMMATURE GRAN % 0.3 % (0.00-0.4); Lymphocyte (Absolute #) 2.79 x10^3/uL (1.0-4.6); Lymphocytes % 25.2 % (24.0-44.0); Mean Cell Volume 94.5 fL (78-100); Mean Corpuscular Hemoglobin 29.7 pg (26-32); Mean Corpuscular Hgb Concent. 31.5 g/dL (32-36); Mean Platelet Volume 12.3 fL (7.5-11.0); Monocyte (Absolute #) 0.94 x10^3/uL (0.0-1.3); Monocytes % 8.5 % (0.0-12.0); Neutrophil % 61.9 % (36.0-66.0); Platelet Count 222 x10^3/uL (150-450); Red Blood Count 5.11 x10^6/uL (4.1-5.6); Red Cell Distribution Width 14.8 % (11.5-14.0); White Blood Count 11.1 x10^3/uL (4.0-10.5)
[2022-08-17 06:02] LABS: ALBUMIN 4.3 g/dL (3.5-5.0); ALKALINE PHOSPHATASE 73 U/L (38-126); ANION GAP 13.6 MEQ/L (5-15); BLOOD UREA NITROGEN 14 mg/dL (9-20); CHLORIDE 105 mmol/L (98-107); Calcium 8.6 mg/dL (8.4-10.2); Carbon Dioxide 30 mmol/L (22-30); Creatinine 1 0.78 mg/dL (0.66-1.25); EST GLOMERULAR FILTRATION RATE > 60.0 ML/MIN; Glucose 111 mg/dL (74-106); Potassium 4.5 mmol/L (3.5-5.1); SGOT/AST 30 U/L (17-59); SGPT/ALT 18 U/L (0-50); SODIUM 144 mmol/L (137-145); TSH, 3RD Generation 0.837 mIU/L (0.47-4.68); Total Protein 7.8 g/dL (6.3-8.2)
[2022-08-17 07:54] LABS: INFLUENZA A NEGATIVE (NEGATIVE); INFLUENZA B NEGATIVE (NEGATIVE); RESPIRATORY SYNCTIAL VIRUS NEGATIVE (NEGATIVE); SARS-CoV-2 Xpert Express NEGATIVE (NEGATIVE)
--- NOTE | 2022-08-17 08:38 | XRAY ---
Indication: Chest pain. Comparison: May 29, 2022 Portable chest again demonstrates normal heart and lungs with a few incidental tiny calcified granulomas. Bony thorax intact with minimal degenerative changes. No new/acute findings.
[2022-08-17] MEDS ORDERED: Senokot-S Tablet PO PRN (10:03)
[2022-08-17] MEDS ORDERED: MAALOX ES 30 ML UNIT DOSE PO PRN (10:03)
[2022-08-17] MEDS ORDERED: MILK OF MAGNESIA 30 ML PO PRN (10:03)
[2022-08-17] MEDS ORDERED: MEDICATION INTERVENTION MC SCH ×2 (12:30)
[2022-08-17] MEDS ORDERED: NON-FORMULARY ITEM (Vilazodone Hcl [Viibryd] 1 EACH Tab.Ds.Pk) PO SCH (12:30)
[2022-08-17] MEDS: NICODERM CQ 14 MG TOP SCH (13:01)
[2022-08-17] MEDS: PLAVIX Tablet PO SCH (13:02)
[2022-08-17] MEDS ORDERED: Pepcid 20 MG PO PRN (18:55)
[2022-08-17] MEDS ORDERED: VENTOLIN COMMON CANISTER IH PRN (20:16)
--- NOTE | 2022-08-17 21:37 | PCM.HP ---
History of Present Illness - Chief Complaint Chief Complaint: chest pain Date: 08/17/22 History of Present Illness: is a 47 year old male with h/o CAD, tobacco use, and GERD, who presents with chest pain. Patient was hiking with his children on Wednesday, doin g more than his usual exertion, when he had substernal burning chest pain, radiating to the left wrist, associated with nausea, and diaphoresis, similar to a prior presentation with inferior FL in December 2021. At that time, had cardiac cath that showed chronically occluded right coronary artery and a 50% occluded proximal LAD. On Wednesday, pain was relieved by rest and nitroglycerin x2. He initially only went home, but Wednesday he noted recurrence of the pain after walking a few blocks, associated with dyspnea. Again relieved by nitroglycerin. This morning when walking around he still had some chest tightness, so came to the ED. He normally walks around and bikes with his kids, but notes that hiking on Wednesday was more than he had done since before his FL. He continues to smoke a few cigarettes daily, but is down from his prior amount. He has multiple primary family members with FL, including his mother, father, and brother. Since arriving to the ED, he has felt much better, without any further chest pain. He walked outside and out to courtyard without recurrence of his pain. Review of prior records show that at one point he was on Toprol XL 50, Lipitor 80, Prilosec, and Carafate, but he has not filled them recently. He was also prescribed Imdur by his tribal delegate this spring for management of chronic angina, but he could not tolerate taking it due to nausea. - Review of Systems Constitutional: No Fever, No Chills, No Malaise, No Weakness Eyes: No Symptoms Ears, Nose, & Throat: No Symptoms Respiratory: No Symptoms Cardiac: Chest Pain Abdominal/Gastrointestinal: Nausea, No Abdominal Pain, No Diarrhea, No Constipation Genitourinary Symptoms: No Symptoms Musculoskeletal: No Symptoms Skin: No Symptoms Neurological: No Symptoms, No Focal Weakness Psychological: No Symptoms Endocrine: No Symptoms Medications & Allergies Home Medications: Home Medication List Aspirin EC 81 mg [Ecotrin 81 mg] 81 mg PO DAILY 12/19/21 [History Confirmed 08/17/22] Clopidogrel Bisulfate [Plavix] 75 mg PO DAILY 04/10/22 [History Confirmed 08/17/22] Vilazodone HCl [Viibryd] 1 tab PO UD 05/28/22 [History Confirmed 08/17/22] Albuterol Sulfate [Albuterol Sulfate Hfa] 8.5 gm IH Q4-6HPRN PRN 08/17/22 [History Confirmed 08/17/22] Buprenorphine HCl/Naloxone HCl [Suboxone 8 mg-2 mg Sl Film] 8 mg SL BID 08/17/22 [History Confirmed 08/17/22] Allergies/Adverse Reactions: Allergies Allergy/AdvReac Type Severity Reaction Status Date / Time dicyclomine Allergy Severe Tightness Verified 08/17/22 04:37 of Throat acetaminophen Allergy Mild throat Verified 08/17/22 04:37 [From Darvocet-N 100] swelling propoxyphene napsylate Allergy Mild throat Verified 08/17/22 04:37 [From Darvocet-N 100] swelling sulfamethoxazole Allergy Rash Verified 08/17/22 04:37 [From Bactrim DS] trimethoprim Allergy Rash Verified 08/17/22 04:37 [From Bactrim DS] - Past Medical History Past Medical History: Yes Neurological History: Peripheral Neuropathy ENT History: No Pertinent History Cardiac History: Coronary Artery Disease, Hypertension, Myocardial Infarction (FL) Respiratory History: Asthma Endocrine Medical History: No Pertinent History Musculoskelatal History: Arthritis GI Medical History: No Pertinent History History: No Pertinent History Pyscho-Social History: Depression, Other Male Reproductive Disorders: Other Comment: ADHD - Past Surgical History Past Surgical History: Yes Neuro Surgical History: No Pertinent History Cardiac History: Cardiac Catheterization Respiratory Surgery: No Pertinent History GI Surgical History: No Pertinent History Genitourinary Surgical Hx: No Pertinent History Musculskeletal Surgical Hx: Orthopedic Surgery Male Surgical History: No Pertinent History, Vasectomy Other Surgical History: carpel tunnel, failed heart cath , BB removed from left foot - Social History Smoking Status: Current every day smoker How long have you smoked: 34 years Exposure to second hand smoke: Yes Alcohol: Occasionally Drug Use: none Significant Family History: heart disease (father, mother, and brother all from CAD) - Physical Exam Vital Signs: Vital Signs - 24 hr Temp Pulse Pulse Resp BP BP Pulse Ox 08/17/22 20:00 97.8 F 84 20 124/86 96 08/17/22 14:00 98.2 F 73 16 118/76 94 L 08/17/22 12:00 94 L 08/17/22 10:35 98.0 F 77 18 140/88 95 08/17/22 10:01 98.0 F 71 16 135/85 94 L 08/17/22 10:00 98.0 F 71 16 135/85 94 L 08/17/22 09:00 65 10 L 133/100 97 08/17/22 08:46 79 10 L 134/106 97 08/17/22 08:00 79 15 99/70 97 08/17/22 07:00 91 H 17 139/94 96 08/17/22 06:59 98 08/17/22 06:00 70 13 141/86 98 08/17/22 05:15 96 08/17/22 05:00 79 16 133/96 94 L 08/17/22 04:55 82 08/17/22 04:41 98.0 F 85 15 132/88 98 08/17/22 04:40 78 12 132/88 96 General Appearance: no apparent distress Neurologic Exam: alert, oriented x 3, normal mood/affect Eye Exam: PERRL/EOMI, eyes nml inspection Neck Exam: normal inspection Respiratory Exam: normal breath sounds, No respiratory distress Cardiovascular Exam: regular rate/rhythm, No murmur Gastrointestinal/Abdomen Exam: soft, normal bowel sounds Results - Labs Lab/Micro Results: Lab Results-Last 24 Hours 08/17/22 08/17/22 08/17/22 Range/Units 05:10 05:10 05:10 WBC 11.1 H (4.0-10.5) x10^3/uL RBC 5.11 (4.1-5.6) x10^6/uL Hgb 15.2 (12.5-18.0) g/dL Hct 48.3 (42-50) % MCV 94.5 (78-100) fL MCH 29.7 (26-32) pg MCHC 31.5 L (32-36) g/dL RDW 14.8 H (11.5-14.0) % Plt Count 222 (150-450) x10^3/uL MPV 12.3 H (7.5-11.0) fL Gran % 61.9 (36.0-66.0) % Immature Gran % (Auto) 0.3 (0.00-0.4) % Nucleat RBC Rel Count 0.0 (0.00-0.1) % Eos # (Auto) 0.38 (0-0.5) x10^3/uL Immature Gran # (Auto) 0.03 (0.00-0.03) x10^3u/L Absolute Lymphs (auto) 2.79 (1.0-4.6) x10^3/uL Absolute Monos (auto) 0.94 (0.0-1.3) x10^3/uL Absolute Nucleated RBC 0.00 (0.00-0.01) x10^3u/L Lymphocytes % 25.2 (24.0-44.0) % Monocytes % 8.5 (0.0-12.0) % Eosinophils % 3.4 (0.00-5.0) % Basophils % 0.7 (0.0-0.4) % Absolute Granulocytes 6.85 (1.4-6.9) x10^3/uL Basophils # 0.08 (0-0.4) x10^3/uL D-Dimer 0.29 (0.0-0.50) mg/L Sodium 144 (137-145) mmol/L Potassium 4.5 (3.5-5.1) mmol/L Chloride 105 (98-107) mmol/L Carbon Dioxide 30 (22-30) mmol/L Anion Gap 13.6 (5-15) MEQ/L BUN 14 (9-20) mg/dL Creatinine 0.78 (0.66-1.25) mg/dL Estimated GFR > 60.0 ML/MIN Glucose 111 H (74-106) mg/dL Calcium 8.6 (8.4-10.2) mg/dL Total Bilirubin 0.70 (0.2-1.3) mg/dL AST 30 (17-59) U/L ALT 18 (0-50) U/L Alkaline Phosphatase 73 (38-126) U/L Troponin I (0.000-0.034) ng/mL Serum Total Protein 7.8 (6.3-8.2) g/dL Albumin 4.3 (3.5-5.0) g/dL TSH 3rd Generation 0.837 (0.47-4.68) mIU/L Influenza Type A Ag (NEGATIVE) Influenza Type B Ag (NEGATIVE) RSV (PCR) (NEGATIVE) SARS-CoV-2 (PCR) (NEGATIVE) 08/17/22 08/17/22 08/17/22 Range/Units 05:10 07:16 07:22 WBC (4.0-10.5) x10^3/uL RBC (4.1-5.6) x10^6/uL Hgb (12.5-18.0) g/dL Hct (42-50) % MCV (78-100) fL MCH (26-32) pg MCHC (32-36) g/dL RDW (11.5-14.0) % Plt Count (150-450) x10^3/uL MPV (7.5-11.0) fL Gran % (36.0-66.0) % Immature Gran % (Auto) (0.00-0.4) % Nucleat RBC Rel Count (0.00-0.1) % Eos # (Auto) (0-0.5) x10^3/uL Immature Gran # (Auto) (0.00-0.03) x10^3u/L Absolute Lymphs (auto) (1.0-4.6) x10^3/uL Absolute Monos (auto) (0.0-1.3) x10^3/uL Absolute Nucleated RBC (0.00-0.01) x10^3u/L Lymphocytes % (24.0-44.0) % Monocytes % (0.0-12.0) % Eosinophils % (0.00-5.0) % Basophils % (0.0-0.4) % Absolute Granulocytes (1.4-6.9) x10^3/uL Basophils # (0-0.4) x10^3/uL D-Dimer (0.0-0.50) mg/L Sodium (137-145) mmol/L Potassium (3.5-5.1) mmol/L Chloride (98-107) mmol/L Carbon Dioxide (22-30) mmol/L Anion Gap (5-15) MEQ/L BUN (9-20) mg/dL Creatinine (0.66-1.25) mg/dL Estimated GFR ML/MIN Glucose (74-106) mg/dL Calcium (8.4-10.2) mg/dL Total Bilirubin (0.2-1.3) mg/dL AST (17-59) U/L ALT (0-50) U/L Alkaline Phosphatase (38-126) U/L Troponin I < 0.012 < 0.012 (0.000-0.034) ng/mL Serum Total Protein (6.3-8.2) g/dL Albumin (3.5-5.0) g/dL TSH 3rd Generation (0.47-4.68) mIU/L Influenza Type A Ag NEGATIVE (NEGATIVE) Influenza Type B Ag NEGATIVE (NEGATIVE) RSV (PCR) NEGATIVE (NEGATIVE) SARS-CoV-2 (PCR) NEGATIVE (NEGATIVE) 08/17/22 Range/Units 13:44 WBC (4.0-10.5) x10^3/uL RBC (4.1-5.6) x10^6/uL Hgb (12.5-18.0) g/dL Hct (42-50) % MCV (78-100) fL MCH (26-32) pg MCHC (32-36) g/dL RDW (11.5-14.0) % Plt Count (150-450) x10^3/uL MPV (7.5-11.0) fL Gran % (36.0-66.0) % Immature Gran % (Auto) (0.00-0.4) % Nucleat RBC Rel Count (0.00-0.1) % Eos # (Auto) (0-0.5) x10^3/uL Immature Gran # (Auto) (0.00-0.03) x10^3u/L Absolute Lymphs (auto) (1.0-4.6) x10^3/uL Absolute Monos (auto) (0.0-1.3) x10^3/uL Absolute Nucleated RBC (0.00-0.01) x10^3u/L Lymphocytes % (24.0-44.0) % Monocytes % (0.0-12.0) % Eosinophils % (0.00-5.0) % Basophils % (0.0-0.4) % Absolute Granulocytes (1.4-6.9) x10^3/uL Basophils # (0-0.4) x10^3/uL D-Dimer (0.0-0.50) mg/L Sodium (137-145) mmol/L Potassium (3.5-5.1) mmol/L Chloride (98-107) mmol/L Carbon Dioxide (22-30) mmol/L Anion Gap (5-15) MEQ/L BUN (9-20) mg/dL Creatinine (0.66-1.25) mg/dL Estimated GFR ML/MIN Glucose (74-106) mg/dL Calcium (8.4-10.2) mg/dL Total Bilirubin (0.2-1.3) mg/dL AST (17-59) U/L ALT (0-50) U/L Alkaline Phosphatase (38-126) U/L Troponin I < 0.012 (0.000-0.034) ng/mL Serum Total Protein (6.3-8.2) g/dL Albumin (3.5-5.0) g/dL TSH 3rd Generation (0.47-4.68) mIU/L Influenza Type A Ag (NEGATIVE) Influenza Type B Ag (NEGATIVE) RSV (PCR) (NEGATIVE) SARS-CoV-2 (PCR) (NEGATIVE) - Radiology Impressions Radiology Exams & Impressions: Radiology Procedures Category Date Time Status CHEST 1 VIEW (PORTABLE) Stat Exams 08/17/22 05:06 Completed CXR - no infiltrate, effusion, or edema (images reviewed) - Other Procedures and Tests Respiratory Therapy 08/18/22 05:00 EKG ONCE 08/19/22 05:00 EKG ONCE 08/20/22 05:00 EKG ONCE Assessment/Plan (1) Chest pain Current Visit: Yes Status: Acute Assessment & Plan: Patient has strong cardiac history with known CAD, and presents with exertional chest pain relieved by rest and nitrolgycerin, highly suspicious for cardiac pain. His troponins are negative x3, so not having current FL. But he remains high risk, with continued smoking. Currenlty chest pain-free, even with mild exertion. No obviously culprit lesion on his November cath, but had disease still in LAD. - check lipid panel - monitor on telemetry - will need to follow up with his tribal delegate for likely outpatient stress - continue aspirin, plavix - restart lipitor 80, Toprol XL 50 - intolerant of Imdur - if stress test negative, may be candidate for Ranexa Code(s): R07.9 - CHEST PAIN, UNSPECIFIED (2) GERD (gastroesophageal reflux disease) Current Visit: Yes Status: Acute Assessment & Plan: Has h/o GERD, even requiring PPI and Carafate in the past, which he is not currently taking. His burning chest pain is suspicious for GERD. However, the exertional component, associated symptoms, and relief by nitroglycerin are not consistent. - will restart H2RA in any case Code(s): K21.9 - GASTRO-ESOPHAGEAL REFLUX DISEASE WITHOUT ESOPHAGITIS Telemedicine Encounter - Telemedicine Encounter Telemedicine Encounter: The entirety of this encounter was performed via Telemedicine"
[2022-08-17] MEDS ORDERED: ZOCOR 20MG PO SCH (22:00)
[2022-08-17] MEDS ORDERED: NON-FORMULARY ITEM (Buprenorphine Hcl/Naloxone Hcl [Suboxone 8 Mg-2 Mg Sl Film] 1 EACH Fil SL SCH (22:00)
[2022-08-18 03:43] LABS: Amphetamine,Urine NEGATIVE (NEGATIVE); Barbiturate,Urine NEGATIVE (NEGATIVE); Benzodiazepine,Urine NEGATIVE (NEGATIVE); Cocaine,Urine NEGATIVE (NEGATIVE); Methadone,Urine NEGATIVE (NEGATIVE); Opiate,Urine NEGATIVE (NEGATIVE); PCP,Urine NEGATIVE (NEGATIVE); THC,Urine NEGATIVE (NEGATIVE)
[2022-08-18] MEDS ORDERED: PROVENTIL 2.5 MG/3 ML NEB IH PRN (05:02)
[2022-08-18 05:41] VITALS: O2SAT 93
[2022-08-18 07:00] VITALS: BP 104/65; PULSE 72
--- NOTE | 2022-08-18 08:41 | PCM.DS ---
Discharge Summary Date of Admission: 08/17/22 10:00 Admitting Physician: CHARITY MANNING Primary Care Provider: CHARITY MANNING Allergies Allergies dicyclomine Allergy (Severe, Verified 08/17/22 04:37) Tightness of Throat acetaminophen [From Darvocet-N 100] Allergy (Mild, Verified 08/17/22 04:37) throat swelling propoxyphene napsylate [From Darvocet-N 100] Allergy (Mild, Verified 08/17/22 04:37) throat swelling sulfamethoxazole [From Bactrim DS] Allergy (Verified 08/17/22 04:37) Rash trimethoprim [From Bactrim DS] Allergy (Verified 08/17/22 04:37) Rash Hospital Summary - Hospital Course Hospital Course: pt is a 47 yo male with CAD (hx MS, sees Dr. Layo Velasquez) and GERD who was admitted through ER with chest pain. Had been more active than usual - hiking with kids in [facility], and started having chest pain. It recurred over the weekend so he came to ER. Troponins were neg x 3. CXR nonacute. Labs nonacute. He denies CP this morning. Was sleeping when I entered. Having increased stress lately, he says. Will discharge to home, f/u with cardiology outpatient and see me in 1 week. Will send home on H2 trace for GERD. - Vitals & Intake/Output Vital Signs: Vital Signs Temperature 98.9 F 08/18/22 06:59 Pulse Rate 72 08/18/22 06:59 Respiratory Rate 15 08/18/22 06:59 Blood Pressure 104/65 08/18/22 06:59 O2 Sat by Pulse Oximetry 93 L 08/18/22 06:59 Intake & Output: Intake & Output 08/15/22 08/16/22 08/17/22 08/18/22 11:59 11:59 11:59 11:59 Intake Total 2660 Output Total 400 Balance 2260 Weight 58.2 kg 58 kg - Lab Result Diagrams: 08/17/22 05:10 08/17/22 05:10 Lab Results-Last 24 Hrs: Lab Results-Last 24 Hours 08/17/22 08/18/22 08/18/22 Range/Units 13:44 03:00 05:00 Troponin I < 0.012 (0.000-0.034) ng/mL Triglycerides 101 (30-150) mg/dL Cholesterol 129 (50-200) mg/dL LDL Cholesterol 63 (30-100) mg/dL HDL Cholesterol 43 (40-60) mg/dL Heart Disease Risk Ratio 3.0 Urine Opiates Level NEGATIVE (NEGATIVE) Ur Methadone NEGATIVE (NEGATIVE) Urine Barbiturates NEGATIVE (NEGATIVE) Ur Phencyclidine (PCP) NEGATIVE (NEGATIVE) Urine Amphetamine NEGATIVE (NEGATIVE) U Benzodiazepine Level NEGATIVE (NEGATIVE) Urine Cocaine NEGATIVE (NEGATIVE) Urine Marijuana (THC) NEGATIVE (NEGATIVE) - Radiology Exams Ordered Rad Exams-Entire Visit: Radiology Procedures Category Date Time Status CHEST 1 VIEW (PORTABLE) Stat Exams 08/17/22 05:06 Completed - Procedures and Test Procedures and Tests throughout Hospitalization: Therapy Orders & Screens 08/17/22 13:06 EKG ONCE Comment: Diagnosis: chest pain 08/17/22 22:56 Respiratory Therapy Assessment DAILY Comment: Diagnosis: chest pain 08/18/22 05:00 EKG ONCE Comment: Diagnosis: chest pain 08/19/22 05:00 EKG ONCE Comment: Diagnosis: chest pain 08/20/22 05:00 EKG ONCE Comment: Diagnosis: chest pain Discharge Exam General Appearance: no apparent distress, thin Neurologic Exam: alert, cooperative, normal mood/affect Eye Exam: eyes nml inspection, No scleral icterus Ears, Nose, Throat Exam: moist mucous membranes Neck Exam: normal inspection, non-tender, supple, No lymphadenopathy Respiratory Exam: normal breath sounds, lungs clear, No crackles/rales, No rhonchi, No wheezing Cardiovascular Exam: regular rate/rhythm, normal heart sounds, No murmur, No friction rub, No gallop Gastrointestinal/Abdomen Exam: soft, normal bowel sounds, No tenderness, No distention, No mass, No guarding, No rebound Back Exam: normal inspection, No rash Extremity Exam: normal inspection, No pedal edema, No swelling Skin Exam: normal color, warm, dry, No rash Final Diagnosis/Problem List - Final Discharge Diagnosis/Problem (1) Chest pain Current Visit: Yes Status: Ruled-out Assessment & Plan: See cardiology soon. Troponins neg and EKG nonacute. Code(s): R07.9 - CHEST PAIN, UNSPECIFIED (2) GERD (gastroesophageal reflux disease) Current Visit: Yes Status: Suspected Assessment & Plan: home on pepcid. Code(s): K21.9 - GASTRO-ESOPHAGEAL REFLUX DISEASE WITHOUT ESOPHAGITIS (3) History of non-ST elevation myocardial infarction (NSTEMI) Current Visit: Yes Status: Chronic Code(s): I25.2 - OLD MYOCARDIAL INFARCTION - Discharge Disposition: Home, Self-Care Condition: Good Prescriptions: New Nicotine 14 mg [Nicoderm Cq 14 mg] 14 mg TOP DAILY 30 Days #30 patch Famotidine 20 mg [Pepcid 20 MG] 20 mg PO BID PRN PRN 30 Days #60 tablet PRN Reason: epigastric burning Senna/Docusate Sodium Tab [Senokot-S Tablet] 2 udtab PO BID PRN PRN t ablet PRN Reason: CONSTIPATION Metoprolol Succinate 50 mg [Toprol Xl 50 MG] 50 mg PO DAILY #30 tablet Atorvastatin Calcium 80 mg PO QHS #30 tablet Continue Aspirin EC 81 mg [Ecotrin 81 mg] 81 mg PO DAILY Clopidogrel Bisulfate [Plavix] 75 mg PO DAILY Vilazodone HCl [Viibryd] 1 tab PO UD Buprenorphine HCl/Naloxone HCl [Suboxone 8 mg-2 mg Sl Film] 8 mg SL BID Albuterol Sulfate [Albuterol Sulfate Hfa] 8.5 gm IH Q4-6HPRN PRN PRN Reason: Shortness Of Breath/Wheezing Forms: Discharge Instructions
[2022-08-18] MEDS: NICODERM CQ 14 MG TOP SCH (09:44)
[2022-08-18] MEDS: PLAVIX Tablet PO SCH (09:44)
[2022-08-18] MEDS ORDERED: Toprol Xl 50 MG PO SCH (10:00)
[2022-08-18] MEDS ORDERED: ECOTRIN 81 MG PO SCH (10:00)
== END 2022-08-18 09:50 | disposition home or self-care (01) ==
LOC: ED 04:36 → MED SURG 10:00
PROVIDERS: ADMIT Family Medicine; ATTEND Family Medicine
DX: R07.9 Chest pain, unspecified (principal); I10 Essential (primary) hypertension; K21.9 Gastro-esophageal reflux disease without esophagitis; Z82.49 Family history of ischemic heart disease and other diseases of the circulatory system; I25.2 Old myocardial infarction; Z79.899 Other long term (current) drug therapy; Z79.01 Long term (current) use of anticoagulants; F17.210 Nicotine dependence, cigarettes, uncomplicated
CPT/HCPCS: 0241U; 36000; 36415; 71045; 80053; 80061; 80307; 83721; 84443; 84484; 85025; 85379; 93005; 93041; 93268; 94640; 94760; 99285; G0378; J7609; A9270-GY

== ENCOUNTER 2022-08-20 19:43 | Emergency (ER) | payer OTHER ==
[2022-08-20 20:09] VITALS: BP 132/107; PULSE 104; O2SAT 96
[2022-08-20] MEDS ORDERED: BABY ASPIRIN 81 MG CHEW PO ONE (20:15)
[2022-08-20] MEDS ORDERED: BABY ASPIRIN 81 MG CHEW ONE (20:30)
[2022-08-20 20:31] LABS: Absolute Neutrophil Ct (ANC) 9.07 x10^3/uL (1.4-6.9); BASOPHIL % 0.6 % (0.0-0.4); Basophil (Absolute #) 0.09 x10^3/uL (0-0.4); Eosinophil % 2.5 % (0.00-5.0); Eosinophil (Absolute #) 0.35 x10^3/uL (0-0.5); Hemoglobin 15.6 g/dL (12.5-18.0); IMMATURE GRAN # 0.06 x10^3u/L (0.00-0.03); IMMATURE GRAN % 0.4 % (0.00-0.4); Lymphocyte (Absolute #) 3.14 x10^3/uL (1.0-4.6); Lymphocytes % 22.5 % (24.0-44.0); Mean Cell Volume 92.3 fL (78-100); Mean Corpuscular Hgb Concent. 32.5 g/dL (32-36); Mean Platelet Volume 12.1 fL (7.5-11.0); Monocyte (Absolute #) 1.23 x10^3/uL (0.0-1.3); Monocytes % 8.8 % (0.0-12.0); Neutrophil % 65.2 % (36.0-66.0); Platelet Count 244 x10^3/uL (150-450); White Blood Count 13.9 x10^3/uL (4.0-10.5)
[2022-08-20 20:49] LABS: ALBUMIN 4.5 g/dL (3.5-5.0); ALKALINE PHOSPHATASE 74 U/L (38-126); ANION GAP 18.2 MEQ/L (5-15); BLOOD UREA NITROGEN 15 mg/dL (9-20); CHLORIDE 103 mmol/L (98-107); CK-Creatinine Phosphokinase 53 U/L (55-170); Calcium 8.7 mg/dL (8.4-10.2); Carbon Dioxide 23 mmol/L (22-30); Creatinine 1 0.82 mg/dL (0.66-1.25); EST GLOMERULAR FILTRATION RATE > 60.0 ML/MIN; Glucose 130 mg/dL (74-106); Potassium 3.6 mmol/L (3.5-5.1); SGOT/AST 37 U/L (17-59); SGPT/ALT 22 U/L (0-50); SODIUM 141 mmol/L (137-145); Total Protein 7.9 g/dL (6.3-8.2)
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
== END 2022-08-20 20:46 | disposition left against medical advice (07) ==
LOC: ED 19:43
DX: R07.9 Chest pain, unspecified (principal); I25.10 Atherosclerotic heart disease of native coronary artery without angina pectoris; Z72.0 Tobacco use; R11.2 Nausea with vomiting, unspecified; R00.0 Tachycardia, unspecified; I10 Essential (primary) hypertension; Z79.01 Long term (current) use of anticoagulants; Z79.899 Other long term (current) drug therapy; Z20.828 Contact with and (suspected) exposure to other viral communicable diseases
CPT/HCPCS: 36415; 80053; 82550; 84484; 85025; 99281; A9270-GY

== ENCOUNTER 2022-09-15 01:20 | Observation (INO) | payer OTHER ==
--- NOTE | 2022-09-15 01:22 | ERPHSYRPT ---
- History of Present Illness Time Seen by Provider: 09/15/22 01:22 Historian: patient Exam Limitations: no limitations Physician History: 47-year-old male presents emergency room with substernal chest pain radiating to his left arm. Pain started while he was throwing football with his kids. He took 3 nitro which did help relieve the pain. He has a history of multiple c oronary artery blockages for which she sees Dr. Layo Velasquez at [facility]. Patient also having increased shortness of breath is worse with exertion. History of COPD and is wheezing quite a bit since the pain started. He denies fever, chills, nausea, vomiting, abdominal pain or swelling. Timing/Duration: today Activities at Onset: activity Quality: pressure, sharpness Location: substernal Chest Pain Radiation: arm Severity of Pain-Max: severe Severity of Pain-Current: moderate Modifying Factors: Improves With: nitroglycerin. Worsens With: exertion Associated Symptoms: heartburn, shortness of breath, cough, No fever, No edema Prior Chest Pain/Cardiac Workup: cardiac cath Nitro Today/Relief: 0.4 mg x 3 Aspirin Treatment Today: 81 mg x 4, provided at home, provided by ED Allergies/Adverse Reactions: dicyclomine Allergy (Severe, Verified 09/15/22 01:22) Tightness of Throat acetaminophen [From Darvocet-N 100] Allergy (Mild, Verified 09/15/22 01:22) throat swelling propoxyphene napsylate [From Darvocet-N 100] Allergy (Mild, Verified 09/15/22 01:22) throat swelling sulfamethoxazole [From Bactrim DS] Allergy (Verified 09/15/22 01:22) Rash trimethoprim [From Bactrim DS] Allergy (Verified 09/15/22 01:22) Rash Home Medications: Aspirin EC 81 mg [Ecotrin 81 mg] 81 mg PO DAILY 12/19/21 [History] Clopidogrel Bisulfate [Plavix] 75 mg PO DAILY 04/10/22 [History] Vilazodone HCl [Viibryd] 1 tab PO UD 05/28/22 [History] Albuterol Sulfate [Albuterol Sulfate Hfa] 8.5 gm IH Q4-6HPRN PRN 08/17/22 [History] Buprenorphine HCl/Naloxone HCl [Suboxone 8 mg-2 mg Sl Film] 8 mg SL BID 08/17/22 [History] Hx Tetanus, Diphtheria Vaccination/Date Given: Yes Hx Influenza Vaccination/Date Given: No Hx Pneumococcal Vaccination/Date Given: No Travel Risk - Vaccine Status Have you recieved a Covid-19 vaccination: No - Review of Systems Constitutional: No Symptoms Eyes: No Symptoms Ears, Nose, & Throat: No Symptoms Respiratory: Cough, Dyspnea, Dyspnea on Exertion (VALERO), Wheezing Cardiac: Chest Pain, No Edema, No Palpitations, No Orthopnea Abdominal/Gastrointestinal: No Abdominal Pain, No Nausea, No Vomiting, No Diarrhea, No Constipation, No Hematemesis, No Hematochezia Genitourinary Symptoms: No Symptoms Musculoskeletal: No Symptoms Skin: No Symptoms Neurological: No Symptoms - Past Medical History Pertinent Past Medical History: Yes Neurological History: Peripheral Neuropathy ENT History: No Pertinent History Cardiac History: Coronary Artery Disease, Hypertension, Myocardial Infarction ([place]) Respiratory History: Asthma Endocrine Medical History: No Pertinent History Musculoskeletal History: Arthritis GI Medical History: No Pertinent History History: No Pertinent History Psycho-Social History: Depression, Other Male Reproductive Disorders: Other Other Medical History: ADHD - Past Surgical History Past Surgical History: Yes Neuro Surgical History: No Pertinent History Cardiac: Cardiac Catheterization Respiratory: No Pertinent History Gastrointestinal: No Pertinent History Genitourinary: No Pertinent History Musculoskeletal: Orthopedic Surgery Male Surgical History: No Pertinent History, Vasectomy Other Surgical History: carpel tunnel, failed heart cath , BB removed from left foot - Social History Smoking Status: Current every day smoker How long have you smoked: 34 years Exposure to second hand smoke: Yes Drug Use: none Patient Lives Alone: No Significant Family History: heart disease (father, mother, and brother all from CAD) - Nursing Vital Signs Nursing Vital Signs: Initial Vital Signs Temperature 97.4 F 09/15/22 01:23 Pulse Rate 100 H 09/15/22 01:23 Respiratory Rate 18 09/15/22 01:23 Blood Pressure 115/82 09/15/22 01:23 O2 Sat by Pulse Oximetry 94 L 09/15/22 01:23 Pain Scale Pain Intensity 5 - Physical Exam General Appearance: mild distress, thin Eye Exam: eyes nml inspection Ears, Nose, Throat Exam: normal ENT inspection Neck Exam: normal inspection, supple, full range of motion Respiratory Exam: airway intact, diminished breath sounds, wheezing, No respiratory distress Cardiovascular Exam: tachycardia, capillary refill <2 sec, No edema Gastrointestinal/Abdomen Exam: soft, normal bowel sounds, No tenderness Back Exam: normal inspection Extremity Exam: normal inspection, No swelling, No tenderness Neurologic Exam: alert, oriented x 3, cooperative Skin Exam: normal color, warm, dry SpO2 Interpretation: normal O2 Delivery: Room Air - Course Nursing assessment & vital signs reviewed: Yes EKG Interpreted by Me: RATE (101), Sinus Tach, NORMAL AXIS, NORMAL INTERVALS, NORMAL QRS, NORMAL ST-T - Radiology Exams Chest X-ray Interpretation: Reviewed by me, Teleradiologist Report, No Pneumonia, No Pneumothorax, Nml Heart Size, Other (hyperinflation) Ordered Tests: Active Orders 24 hr Category Date Time Status Leather Fitter STAT Care 09/15/22 01:36 Active EKG-ER Only STAT Care 09/15/22 01:35 Active IV Insertion STAT Care 09/15/22 01:35 Active Pulse Oximetry (ED) STAT Care 09/15/22 01:35 Active CHEST 1 VIEW (PORTABLE) Stat Exams 09/15/22 01:36 Completed CBC W DIFF Stat Lab 09/15/22 02:00 Completed CMP Stat Lab 09/15/22 02:00 Completed D-DIMER QUANTITATIVE Stat Lab 09/15/22 02:00 Completed Lactic Acid Stat Lab 09/15/22 02:30 Completed MAGNESIUM Stat Lab 09/15/22 02:00 Completed TROPONIN Q4H Lab 09/15/22 02:00 Completed TROPONIN Q4H Lab 09/15/22 05:45 Ordered TROPONIN Q4H Lab 09/15/22 09:45 Ordered Urine Triage Profile Stat Lab 09/15/22 02:36 Completed Respiratory Therapy Assessment DAILY RT 09/15/22 02:13 Active Transfer Order Routine Transfer 09/15/22 Ordered Medication Summary Generic Name Dose Route Start Last Admin Trade Name Freq PRN Reason Stop Dose Admin Sodium Chloride 1,000 mls @ 999 mls/hr 09/15/22 02:39 09/15/22 02:49 Sodium Chloride 0.9% 1000 Ml IV 09/15/22 03:39 999 mls/hr .Q1H1M STA Administration Discontinued Medications Generic Name Dose Route Start Last Admin Trade Name Freq PRN Reason Stop Dose Admin Albuterol Sulfate Confirm 09/15/22 02:18 Albuterol Sulfate 2.5 Mg/3 Ml Neb Administered 09/15/22 02:19 Dose 2.5 mg IH .STK-MED ONE Albuterol Sulfate 2.5 mg 09/15/22 02:21 09/15/22 02:22 Albuterol Sulfate 2.5 Mg/3 Ml Neb IH 09/15/22 02:22 2.5 mg STAT ONE Administration Albuterol/Ipratropium 3 ml 09/15/22 01:37 09/15/22 03:11 Ipratropium/Albuterol Sulfate 3 Ml Ampul.Neb IH 09/15/22 01:38 Not Given STAT ONE Albuterol/Ipratropium Confirm 09/15/22 02:10 Ipratropium/Albuterol Sulfate 3 Ml Ampul.Neb Administered 09/15/22 02:11 Dose 3 ml IH .STK-MED ONE Aspirin 162 mg 09/15/22 01:35 09/15/22 01:52 Aspirin 81 Mg Tab.Chew PO 09/15/22 01:36 162 mg STAT ONE Administration Methylprednisolone Sodium 0 mg 09/15/22 01:37 09/15/22 01:54 Succinate 125 mg/ Sterile IV 09/15/22 01:38 125 mg Water 2 ml STAT ONE Administration Azithromycin 500 mg in 250 mls @ 250 mls/hr 09/15/22 01:37 09/15/22 03:19 Zithromax 500 Mg/ 250 Ml Nacl Premix IV 09/15/22 02:36 Infused STAT STA Infusion Azithromycin Confirm 09/15/22 01:48 Zithromax 500 Mg/ 250 Ml Nacl Premix Administered 09/15/22 01:49 Dose 500 mg in 250 mls @ ud IV .STK-MED ONE Sodium Chloride Confirm 09/15/22 02:42 Sodium Chloride 0.9% 1000 Ml Administered 09/15/22 02:43 Dose 1,000 mls @ ud .ROUTE .STK-MED ONE Lorazepam 2 mg 09/15/22 02:52 09/15/22 03:00 Lorazepam 2 Mg/1 Ml 2 Mg Vial IV 09/15/22 02:53 2 mg STAT ONE Administration Lorazepam Confirm 09/15/22 02:57 Lorazepam 2 Mg/1 Ml 2 Mg Vial Administered 09/15/22 02:58 Dose 2 mg .ROUTE .STK-MED ONE Methylprednisolone Sodium Succinate Confirm 09/15/22 01:48 Methylprednis Sod Succ 125 Mg/2 Ml Vial Administered 09/15/22 01:49 Dose 125 mg .ROUTE .STK-MED ONE Morphine Sulfate 2 mg 09/15/22 01:35 09/15/22 01:54 Morphine Sulfate 2 Mg/Ml Inj IV 09/15/22 01:36 2 mg STAT ONE Administration Morphine Sulfate Confirm 09/15/22 01:48 Morphine Sulfate 2 Mg/Ml Inj Administered 09/15/22 01:49 Dose 2 mg .ROUTE .STK-MED ONE Nicotine 21 mg 09/15/22 02:53 09/15/22 03:01 Nicotine 21 Mg/Patch Patch TOP 09/15/22 02:54 21 mg STAT ONE Administration Ondansetron HCl 4 mg 09/15/22 01:35 09/15/22 01:53 Ondansetron Hcl 4 Mg/2 Ml Vial IV 09/15/22 01:36 4 mg STAT ONE Administration Ondansetron HCl Confirm 09/15/22 01:47 Ondansetron Hcl 4 Mg/2 Ml Vial Administered 09/15/22 01:48 Dose 4 mg .ROUTE .STK-MED ONE Sterile Water Confirm 09/15/22 01:47 Water For Injection,Sterile 10 Ml Vial Administered 09/15/22 01:48 Dose 10 ml IJ .STK-MED ONE Lab/Rad Data: Laboratory Result Diagrams 09/15/22 02:00 09/15/22 02:00 Laboratory Results 09/15/22 09/15/22 09/15/22 Range/Units 02:36 02:30 02:00 WBC (4.0-10.5) x10^3/uL RBC (4.1-5.6) x10^6/uL Hgb (12.5-18.0) g/dL Hct (42-50) % MCV (78-100) fL MCH (26-32) pg MCHC (32-36) g/dL RDW (11.5-14.0) % Plt Count (150-450) x10^3/uL MPV (7.5-11.0) fL Gran % (36.0-66.0) % Immature Gran % (Auto) (0.00-0.4) % Nucleat RBC Rel Count (0.00-0.1) % Eos # (Auto) (0-0.5) x10^3/uL Immature Gran # (Auto) (0.00-0.03) x10^3u/L Absolute Lymphs (auto) (1.0-4.6) x10^3/uL Absolute Monos (auto) (0.0-1.3) x10^3/uL Absolute Nucleated RBC (0.00-0.01) x10^3u/L Lymphocytes % (24.0-44.0) % Monocytes % (0.0-12.0) % Eosinophils % (0.00-5.0) % Basophils % (0.0-0.4) % Absolute Granulocytes (1.4-6.9) x10^3/uL Basophils # (0-0.4) x10^3/uL D-Dimer (0.0-0.50) mg/L Sodium (137-145) mmol/L Potassium (3.5-5.1) mmol/L Chloride (98-107) mmol/L Carbon Dioxide (22-30) mmol/L Anion Gap (5-15) MEQ/L BUN (9-20) mg/dL Creatinine (0.66-1.25) mg/dL Estimated GFR ML/MIN Glucose (74-106) mg/dL Lactic Acid 2.4 H (0.4-2.0) Calcium (8.4-10.2) mg/dL Magnesium (1.6-2.3) mg/dL Total Bilirubin (0.2-1.3) mg/dL AST (17-59) U/L ALT (0-50) U/L Alkaline Phosphatase (38-126) U/L Troponin I (0.000-0.034) ng/mL Serum Total Protein (6.3-8.2) g/dL Albumin (3.5-5.0) g/dL Urine Opiates Level NEGATIVE (NEGATIVE) Ur Methadone NEGATIVE (NEGATIVE) Urine Barbiturates POSITIVE (NEGATIVE) Ur Phencyclidine (PCP) NEGATIVE (NEGATIVE) Urine Amphetamine NEGATIVE (NEGATIVE) U Benzodiazepine Level NEGATIVE (NEGATIVE) Urine Cocaine NEGATIVE (NEGATIVE) Urine Marijuana (THC) NEGATIVE (NEGATIVE) Influenza Type A Ag NEGATIVE (NEGATIVE) Influenza Type B Ag NEGATIVE (NEGATIVE) RSV (PCR) NEGATIVE (NEGATIVE) SARS-CoV-2 (PCR) NEGATIVE (NEGATIVE) 09/15/22 09/15/22 09/15/22 Range/Units 02:00 02:00 02:00 WBC (4.0-10.5) x10^3/uL RBC (4.1-5.6) x10^6/uL Hgb (12.5-18.0) g/dL Hct (42-50) % MCV (78-100) fL MCH (26-32) pg MCHC (32-36) g/dL RDW (11.5-14.0) % Plt Count (150-450) x10^3/uL MPV (7.5-11.0) fL Gran % (36.0-66.0) % Immature Gran % (Auto) (0.00-0.4) % Nucleat RBC Rel Count (0.00-0.1) % Eos # (Auto) (0-0.5) x10^3/uL Immature Gran # (Auto) (0.00-0.03) x10^3u/L Absolute Lymphs (auto) (1.0-4.6) x10^3/uL Absolute Monos (auto) (0.0-1.3) x10^3/uL Absolute Nucleated RBC (0.00-0.01) x10^3u/L Lymphocytes % (24.0-44.0) % Monocytes % (0.0-12.0) % Eosinophils % (0.00-5.0) % Basophils % (0.0-0.4) % Absolute Granulocytes (1.4-6.9) x10^3/uL Basophils # (0-0.4) x10^3/uL D-Dimer 0.39 (0.0-0.50) mg/L Sodium (137-145) mmol/L Potassium (3.5-5.1) mmol/L Chloride (98-107) mmol/L Carbon Dioxide (22-30) mmol/L Anion Gap (5-15) MEQ/L BUN (9-20) mg/dL Creatinine (0.66-1.25) mg/dL Estimated GFR ML/MIN Glucose (74-106) mg/dL Lactic Acid (0.4-2.0) Calcium (8.4-10.2) mg/dL Magnesium 1.8 (1.6-2.3) mg/dL Total Bilirubin (0.2-1.3) mg/dL AST (17-59) U/L ALT (0-50) U/L Alkaline Phosphatase (38-126) U/L Troponin I < 0.012 (0.000-0.034) ng/mL Serum Total Protein (6.3-8.2) g/dL Albumin (3.5-5.0) g/dL Urine Opiates Level (NEGATIVE) Ur Methadone (NEGATIVE) Urine Barbiturates (NEGATIVE) Ur Phencyclidine (PCP) (NEGATIVE) Urine Amphetamine (NEGATIVE) U Benzodiazepine Level (NEGATIVE) Urine Cocaine (NEGATIVE) Urine Marijuana (THC) (NEGATIVE) Influenza Type A Ag (NEGATIVE) Influenza Type B Ag (NEGATIVE) RSV (PCR) (NEGATIVE) SARS-CoV-2 (PCR) (NEGATIVE) 09/15/22 09/15/22 Range/Units 02:00 02:00 WBC 12.0 H (4.0-10.5) x10^3/uL RBC 5.07 (4.1-5.6) x10^6/uL Hgb 15.2 (12.5-18.0) g/dL Hct 46.3 (42-50) % MCV 91.3 (78-100) fL MCH 30.0 (26-32) pg MCHC 32.8 (32-36) g/dL RDW 13.0 (11.5-14.0) % Plt Count 238 (150-450) x10^3/uL MPV 12.3 H (7.5-11.0) fL Gran % 63.5 (36.0-66.0) % Immature Gran % (Auto) 0.3 (0.00-0.4) % Nucleat RBC Rel Count 0.0 (0.00-0.1) % Eos # (Auto) 0.27 (0-0.5) x10^3/uL Immature Gran # (Auto) 0.04 H (0.00-0.03) x10^3u/L Absolute Lymphs (auto) 3.21 (1.0-4.6) x10^3/uL Absolute Monos (auto) 0.78 (0.0-1.3) x10^3/uL Absolute Nucleated RBC 0.00 (0.00-0.01) x10^3u/L Lymphocytes % 26.7 (24.0-44.0) % Monocytes % 6.5 (0.0-12.0) % Eosinophils % 2.2 (0.00-5.0) % Basophils % 0.8 (0.0-0.4) % Absolute Granulocytes 7.61 H (1.4-6.9) x10^3/uL Basophils # 0.10 (0-0.4) x10^3/uL D-Dimer (0.0-0.50) mg/L Sodium 142 (137-145) mmol/L Potassium 3.7 (3.5-5.1) mmol/L Chloride 107 (98-107) mmol/L Carbon Dioxide 21 L (22-30) mmol/L Anion Gap 17.5 H (5-15) MEQ/L BUN 12 (9-20) mg/dL Creatinine 0.79 (0.66-1.25) mg/dL Estimated GFR > 60.0 ML/MIN Glucose 109 H (74-106) mg/dL Lactic Acid (0.4-2.0) Calcium 9.2 (8.4-10.2) mg/dL Magnesium (1.6-2.3) mg/dL Total Bilirubin 0.30 (0.2-1.3) mg/dL AST 35 (17-59) U/L ALT 21 (0-50) U/L Alkaline Phosphatase 72 (38-126) U/L Troponin I (0.000-0.034) ng/mL Serum Total Protein 7.2 (6.3-8.2) g/dL Albumin 4.3 (3.5-5.0) g/dL Urine Opiates Level (NEGATIVE) Ur Methadone (NEGATIVE) Urine Barbiturates (NEGATIVE) Ur Phencyclidine (PCP) (NEGATIVE) Urine Amphetamine (NEGATIVE) U Benzodiazepine Level (NEGATIVE) Urine Cocaine (NEGATIVE) Urine Marijuana (THC) (NEGATIVE) Influenza Type A Ag (NEGATIVE) Influenza Type B Ag (NEGATIVE) RSV (PCR) (NEGATIVE) SARS-CoV-2 (PCR) (NEGATIVE) - Progress Progress: improved Air Movement: fair Progress Note: EKG showed no ST or T wave changes. White blood cell count of 12, D-dimer of 0.39, lactate elevated at 2.4, initial troponin negative. Due to patient's cardiac history and current COPD exacerbation I will reach out to the hospitalist regarding admission. 09/15/22 02:41 09/15/22 03:17 Dr. Cheatham excepts patient for observation. Will trend troponin and repeat EKG in the morning. We will continue azithromycin, Solu-Medrol and albuterol for his COPD exacerbation. Blood Culture(s) Obtained: No Antibiotics given: Yes Counseled pt/family regarding: lab results, diagnosis, need for follow-up, rad results, smoking cessation Medical Desision Making - Discussion of managment Care discussed with:: hospitalist Reviewed:: Test results Agreed on:: Treatment plan, place in obs Will see patient: in hospital - Diagnostic Testing Diagnostic test were ordered, analyzed, and reviewed by me: Yes Radiological Interpretation: Interpreted by me, Reviewed by me - Risk of complications The pt has a mod risk of morbidity or mortality based on: Need for prescription drug management The pt has a high risk of morbidity or mortality based on: Decision regarding hospitilization or escalation of hosp level of care - Departure Departure Disposition: Observation Clinical Impression: Chest pain, rule out acute myocardial infarction, COPD exacerbation, Anxiety about health, Unstable angina, History of non-ST elevation myocardial infarction (NSTEMI) Condition: Stable Critical Care Time: No Referrals: CHARITY MANINNG [Primary Care Provider] - Follow up/PCP as directed Instructions: Chronic Obstructive Pulmonary Disease, Angina (DC), COPD Exacerbation, Adult ED
[2022-09-15] MEDS ORDERED: MORPHINE SULFATE 2 MG INJ IV ONE (01:35)
[2022-09-15] MEDS ORDERED: BABY ASPIRIN 81 MG CHEW PO ONE (01:35)
[2022-09-15] MEDS ORDERED: Zofran 4 MG/2 ML VIAL IV ONE (01:35)
[2022-09-15] MEDS ORDERED: solu-MEDROL 125 MG, Sterile H2O 10 ml 2 ML IV ONE ×2 (01:37)
[2022-09-15] MEDS ORDERED: DUONEB 0.5-3 MG/3 ml Neb IH ONE ×2 (01:37→02:10)
[2022-09-15] MEDS ORDERED: Zithromax 500 MG/ 250 ML NaCl Premix 500 MG/250 ML IVPB IV STA (01:37)
[2022-09-15] MEDS ORDERED: Zofran 4 MG/2 ML VIAL ONE (01:47)
[2022-09-15] MEDS ORDERED: Sterile H2O 10 ml IJ ONE (01:47)
[2022-09-15] MEDS ORDERED: MORPHINE SULFATE 2 MG INJ ONE (01:48)
[2022-09-15] MEDS ORDERED: solu-MEDROL ONE (01:48)
[2022-09-15] MEDS ORDERED: Zithromax 500 MG/ 250 ML NaCl Premix 500 MG/250 ML IVPB IV ONE (01:48)
[2022-09-15 02:11] LABS: Absolute Neutrophil Ct (ANC) 7.61 x10^3/uL (1.4-6.9); BASOPHIL % 0.8 % (0.0-0.4); Eosinophil % 2.2 % (0.00-5.0); Eosinophil (Absolute #) 0.27 x10^3/uL (0-0.5); Hematocrit 46.3 % (42-50); Hemoglobin 15.2 g/dL (12.5-18.0); IMMATURE GRAN # 0.04 x10^3u/L (0.00-0.03); IMMATURE GRAN % 0.3 % (0.00-0.4); Lymphocyte (Absolute #) 3.21 x10^3/uL (1.0-4.6); Lymphocytes % 26.7 % (24.0-44.0); Mean Cell Volume 91.3 fL (78-100); Mean Corpuscular Hgb Concent. 32.8 g/dL (32-36); Mean Platelet Volume 12.3 fL (7.5-11.0); Monocyte (Absolute #) 0.78 x10^3/uL (0.0-1.3); Monocytes % 6.5 % (0.0-12.0); Neutrophil % 63.5 % (36.0-66.0); Platelet Count 238 x10^3/uL (150-450); Red Blood Count 5.07 x10^6/uL (4.1-5.6)
[2022-09-15] MEDS ORDERED: PROVENTIL 2.5 MG/3 ML NEB IH ONE ×2 (02:18→02:21)
[2022-09-15 02:21] LABS: ALBUMIN 4.3 g/dL (3.5-5.0); ALKALINE PHOSPHATASE 72 U/L (38-126); ANION GAP 17.5 MEQ/L (5-15); BLOOD UREA NITROGEN 12 mg/dL (9-20); CHLORIDE 107 mmol/L (98-107); Calcium 9.2 mg/dL (8.4-10.2); Carbon Dioxide 21 mmol/L (22-30); Creatinine 1 0.79 mg/dL (0.66-1.25); EST GLOMERULAR FILTRATION RATE > 60.0 ML/MIN; Glucose 109 mg/dL (74-106); Potassium 3.7 mmol/L (3.5-5.1); SGOT/AST 35 U/L (17-59); SGPT/ALT 21 U/L (0-50); SODIUM 142 mmol/L (137-145); Total Protein 7.2 g/dL (6.3-8.2)
--- NOTE | 2022-09-15 02:29 | XRAY ---
CLINICAL HISTORY:Chest pain; COMPARISON:Comparison made with prior x-ray chest dated 08/17/2022; TECHNIQUES:X-ray chest AP portable view; FINDINGS: Hyperinflated both lung reddy with flattening of diaphragms. Redemonstration of bronchiectasis changes and hilar and suprahilar region with retraction of both feliciano superiorly. Redemonstration of a few tiny nodularities in the right lung zone which remain unchanged. No evidence of pleural effusion or pneumothorax. Both CP angles are clear. The cardiac silhouette is normal. Mild degenerative changes are seen in visualized bones. IMPRESSION: The above-mentioned findings are likely due to sequelae of old healed lung infection with the possibility of underlying COPD. No active cardiopulmonary pathology at the time of the scan. Electronically Signed by: Pranav Pratt MD. ( 09/15/2022 01:16:40 [employer] OFFICER)
[2022-09-15] MEDS ORDERED: Sodium Chloride 0.9% 1000 ML 1,000 ML IV STA (02:39)
[2022-09-15] MEDS ORDERED: Sodium Chloride 0.9% 1000 ML 1,000 ML ONE (02:42)
[2022-09-15 02:52] LABS: INFLUENZA A NEGATIVE (NEGATIVE); INFLUENZA B NEGATIVE (NEGATIVE); RESPIRATORY SYNCTIAL VIRUS NEGATIVE (NEGATIVE); SARS-CoV-2 Xpert Express NEGATIVE (NEGATIVE)
[2022-09-15] MEDS ORDERED: Ativan 2 MG/1 ML VIAL IV ONE (02:52)
[2022-09-15] MEDS ORDERED: Nicoderm CQ 21 MG TOP ONE (02:53)
[2022-09-15] MEDS ORDERED: Ativan 2 MG/1 ML VIAL ONE (02:57)
[2022-09-15 03:10] LABS: Amphetamine,Urine NEGATIVE (NEGATIVE); Barbiturate,Urine POSITIVE (NEGATIVE); Benzodiazepine,Urine NEGATIVE (NEGATIVE); Cocaine,Urine NEGATIVE (NEGATIVE); Methadone,Urine NEGATIVE (NEGATIVE); Opiate,Urine NEGATIVE (NEGATIVE); PCP,Urine NEGATIVE (NEGATIVE); THC,Urine NEGATIVE (NEGATIVE)
[2022-09-15] MEDS ORDERED: TYLENOL 325 MG PO PRN (08:37)
[2022-09-15] MEDS ORDERED: Nitrostat 0.4 MG Tablet SL PRN (08:37)
[2022-09-15] MEDS ORDERED: Senokot-S Tablet PO PRN (08:37)
[2022-09-15] MEDS ORDERED: PROVENTIL 2.5 MG/3 ML NEB IH PRN (08:37)
[2022-09-15] MEDS ORDERED: Zofran 4 MG/2 ML VIAL IV PRN (08:37)
[2022-09-15] MEDS ORDERED: MILK OF MAGNESIA 30 ML PO PRN (08:37)
[2022-09-15] MEDS ORDERED: MAALOX ES 30 ML UNIT DOSE PO PRN (08:37)
[2022-09-15] MEDS ORDERED: MORPHINE SULFATE 2 MG INJ IV PRN (08:37)
[2022-09-15] MEDS ORDERED: Pepcid 20 MG VIAL IV SCH (10:00)
[2022-09-15] MEDS: ENOXAPARIN SODIUM SQ SCH (10:39)
[2022-09-15] MEDS ORDERED: Pepcid 20 MG PO PRN (11:45)
[2022-09-15] MEDS ORDERED: NON-FORMULARY ITEM (Vilazodone Hcl [Viibryd] 1 EACH Tab.Ds.Pk) PO SCH (11:45)
--- NOTE | 2022-09-15 11:45 | PCM.HP ---
History of Present Illness - Chief Complaint Chief Complaint: copd Date: 09/15/22 History of Present Illness: is a 47 year old male who presented to the hospital with chest pain (substernal with pressure and sharp qualities, and with radiation to the left arm) which began while he was throwing a football. He has known CAD (follows with Dr. Oscar Velasquez at [facility]) and took nitroglycerin x 3, which relieved the pain. He also experienced dyspnea. He has known COPD and has experienced wheezing during this episode, but no fevers chills or cough. In the ED, the patient received Ativan which caused grogginess, and this caused the patient to be held in the ED before transfer to the [facility] floor. At the time of my evaluation, the patient's dyspnea is improved. The entirety of this encounter was performed via telemedicine. The patient consented to this telemedicine encounter. - Review of Systems Constitutional: No Symptoms Eyes: No Symptoms Ears, Nose, & Throat: No Symptoms Respiratory: Short Of Breath, Wheezing Cardiac: Chest Pain Abdominal/Gastrointestinal: No Symptoms Genitourinary Symptoms: No Symptoms Musculoskeletal: No Symptoms Skin: No Symptoms Neurological: No Symptoms Endocrine: No Symptoms Hematologic/Lymphatic: No Symptoms Immunological/Allergic: No Symptoms All Other Systems: Reviewed and Negative Medications & Allergies Home Medications: Home Medication List Aspirin EC 81 mg [Ecotrin 81 mg] 81 mg PO DAILY 12/19/21 [History Confirmed 09/15/22] Clopidogrel Bisulfate [Plavix] 75 mg PO DAILY 04/10/22 [History Confirmed 09/15/22] Vilazodone HCl [Viibryd] 1 tab PO UD 05/28/22 [History Confirmed 09/15/22] Albuterol Sulfate [Albuterol Sulfate Hfa] 8.5 gm IH Q4-6HPRN PRN 08/17/22 [History Confirmed 09/15/22] Buprenorphine HCl/Naloxone HCl [Suboxone 8 mg-2 mg Sl Film] 8 mg SL BID 08/17/22 [History Confirmed 09/15/22] Atorvastatin Calcium 80 mg PO QHS #30 tablet 08/18/22 [Rx Confirmed 09/15/22] Famotidine 20 mg [Pepcid 20 MG] 20 mg PO BID PRN PRN 30 Days #60 tablet 08/18/22 [Rx Confirmed 09/15/22] Metoprolol Succinate 50 mg [Toprol Xl 50 MG] 50 mg PO DAILY #30 tablet 08/18/22 [Rx Confirmed 09/15/22] Allergies/Adverse Reactions: Allergies Allergy/AdvReac Type Severity Reaction Status Date / Time dicyclomine Allergy Severe Tightness Verified 09/15/22 01:22 of Throat acetaminophen Allergy Mild throat Verified 09/15/22 01:22 [From Darvocet-N 100] swelling propoxyphene napsylate Allergy Mild throat Verified 09/15/22 01:22 [From Darvocet-N 100] swelling sulfamethoxazole Allergy Rash Verified 09/15/22 01:22 [From Bactrim DS] trimethoprim Allergy Rash Verified 09/15/22 01:22 [From Bactrim DS] - Past Medical History Past Medical History: Yes Neurological History: Peripheral Neuropathy ENT History: No Pertinent History Cardiac History: Coronary Artery Disease, Hypertension, Myocardial Infarction ([place]) Respiratory History: Asthma Endocrine Medical History: No Pertinent History Musculoskelatal History: Arthritis GI Medical History: No Pertinent History History: No Pertinent History Pyscho-Social History: Depression, Other Male Reproductive Disorders: Other Comment: ADHD - Past Surgical History Past Surgical History: Yes Neuro Surgical History: No Pertinent History Cardiac History: Cardiac Catheterization Respiratory Surgery: No Pertinent History GI Surgical History: No Pertinent History Genitourinary Surgical Hx: No Pertinent History Musculskeletal Surgical Hx: Orthopedic Surgery Male Surgical History: No Pertinent History, Vasectomy Other Surgical History: carpel tunnel, failed heart cath , BB removed from left foot, vasectomy - Social History Smoking Status: Current every day smoker How long have you smoked: 34 years Exposure to second hand smoke: Yes Alcohol: Occasionally Drug Use: none Significant Family History: heart disease (father, mother, and brother all from CAD) - Physical Exam Vital Signs: Vital Signs - 24 hr Temp Pulse Pulse Resp BP BP Pulse Ox 09/15/22 10:44 108 H 09/15/22 10:16 101 H 14 09/15/22 08:44 97.6 F 108 H 18 105/67 93 L 09/15/22 08:00 106 H 18 102/76 97 09/15/22 07:32 93 H 13 101/67 96 06/06/23 07:00 96 H 12 107/68 96 09/15/22 06:00 98 H 13 91/65 96 09/15/22 05:00 98 H 15 135/66 96 09/15/22 04:00 103 H 14 103/53 95 09/15/22 03:00 112 H 16 119/62 92 L 09/15/22 02:22 120 H 18 92 L 09/15/22 02:21 117 H 24 102/69 95 09/15/22 02:01 93 L 09/15/22 01:33 112 H 09/15/22 01:23 97.4 F 100 H 18 115/82 94 L General Appearance: no apparent distress, lethargy Neurologic Exam: alert, oriented x 3, cooperative, 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07 (4.1-5.6) x10^6/uL Hgb 15.2 (12.5-18.0) g/dL Hct 46.3 (42-50) % MCV 91.3 (78-100) fL MCH 30.0 (26-32) pg MCHC 32.8 (32-36) g/dL RDW 13.0 (11.5-14.0) % Plt Count 238 (150-450) x10^3/uL MPV 12.3 H (7.5-11.0) fL Gran % 63.5 (36.0-66.0) % Immature Gran % (Auto) 0.3 (0.00-0.4) % Nucleat RBC Rel Count 0.0 (0.00-0.1) % Eos # (Auto) 0.27 (0-0.5) x10^3/uL Immature Gran # (Auto) 0.04 H (0.00-0.03) x10^3u/L Absolute Lymphs (auto) 3.21 (1.0-4.6) x10^3/uL Absolute Monos (auto) 0.78 (0.0-1.3) x10^3/uL Absolute Nucleated RBC 0.00 (0.00-0.01) x10^3u/L Lymphocytes % 26.7 (24.0-44.0) % Monocytes % 6.5 (0.0-12.0) % Eosinophils % 2.2 (0.00-5.0) % Basophils % 0.8 (0.0-0.4) % Absolute Granulocytes 7.61 H (1.4-6.9) x10^3/uL Basophils # 0.10 (0-0.4) x10^3/uL D-Dimer 0.39 (0.0-0.50) mg/L Sodium 142 (137-145) mmol/L Potassium 3.7 (3.5-5.1) mmol/L Chloride 107 (98-107) mmol/L Carbon Dioxide 21 L (22-30) mmol/L Anion Gap 17.5 H (5-15) MEQ/L BUN 12 (9-20) mg/dL Creatinine 0.79 (0.66-1.25) mg/dL Estimated GFR > 60.0 ML/MIN Glucose 109 H (74-106) mg/dL Lactic Acid (0.4-2.0) Calcium 9.2 (8.4-10.2) mg/dL Magnesium (1.6-2.3) mg/dL Total Bilirubin 0.30 (0.2-1.3) mg/dL AST 35 (17-59) U/L ALT 21 (0-50) U/L Alkaline Phosphatase 72 (38-126) U/L Troponin I (0.000-0.034) ng/mL Serum Total Protein 7.2 (6.3-8.2) g/dL Albumin 4.3 (3.5-5.0) g/dL Urine Opiates Level (NEGATIVE) Ur Methadone (NEGATIVE) Urine Barbiturates (NEGATIVE) Ur Phencyclidine (PCP) (NEGATIVE) Urine Amphetamine (NEGATIVE) U Benzodiazepine Level (NEGATIVE) Urine Cocaine (NEGATIVE) Urine Marijuana (THC) (NEGATIVE) Influenza Type A Ag (NEGATIVE) Influenza Type B Ag (NEGATIVE) RSV (PCR) (NEGATIVE) SARS-CoV-2 (PCR) (NEGATIVE) 09/15/22 09/15/22 09/15/22 Range/Units 02:00 02:00 02:00 WBC (4.0-10.5) x10^3/uL RBC (4.1-5.6) x10^6/uL Hgb (12.5-18.0) g/dL Hct (42-50) % MCV (78-100) fL MCH (26-32) pg MCHC (32-36) g/dL RDW (11.5-14.0) % Plt Count (150-450) x10^3/uL MPV (7.5-11.0) fL Gran % (36.0-66.0) % Immature Gran % (Auto) (0.00-0.4) % Nucleat RBC Rel Count (0.00-0.1) % Eos # (Auto) (0-0.5) x10^3/uL Immature Gran # (Auto) (0.00-0.03) x10^3u/L Absolute Lymphs (auto) (1.0-4.6) x10^3/uL Absolute Monos (auto) (0.0-1.3) x10^3/uL Absolute Nucleated RBC (0.00-0.01) x10^3u/L Lymphocytes % (24.0-44.0) % Monocytes % (0.0-12.0) % Eosinophils % (0.00-5.0) % Basophils % (0.0-0.4) % Absolute Granulocytes (1.4-6.9) x10^3/uL Basophils # (0-0.4) x10^3/uL D-Dimer (0.0-0.50) mg/L Sodium (137-145) mmol/L Potassium (3.5-5.1) mmol/L Chloride (98-107) mmol/L Carbon Dioxide (22-30) mmol/L Anion Gap (5-15) MEQ/L BUN (9-20) mg/dL Creatinine (0.66-1.25) mg/dL Estimated GFR ML/MIN Glucose (74-106) mg/dL Lactic Acid (0.4-2.0) Calcium (8.4-10.2) mg/dL Magnesium 1.8 (1.6-2.3) mg/dL Total Bilirubin (0.2-1.3) mg/dL AST (17-59) U/L ALT (0-50) U/L Alkaline Phosphatase (38-126) U/L Troponin I < 0.012 (0.000-0.034) ng/mL Serum Total Protein (6.3-8.2) g/dL Albumin (3.5-5.0) g/dL Urine Opiates Level (NEGATIVE) Ur Methadone (NEGATIVE) Urine Barbiturates (NEGATIVE) Ur Phencyclidine (PCP) (NEGATIVE) Urine Amphetamine (NEGATIVE) U Benzodiazepine Level (NEGATIVE) Urine Cocaine (NEGATIVE) Urine Marijuana (THC) (NEGATIVE) Influenza Type A Ag NEGATIVE (NEGATIVE) Influenza Type B Ag NEGATIVE (NEGATIVE) RSV (PCR) NEGATIVE (NEGATIVE) SARS-CoV-2 (PCR) NEGATIVE (NEGATIVE) 09/15/22 09/15/22 09/15/22 Range/Units 02:30 02:36 04:36 WBC (4.0-10.5) x10^3/uL RBC (4.1-5.6) x10^6/uL Hgb (12.5-18.0) g/dL Hct (42-50) % MCV (78-100) fL MCH (26-32) pg MCHC (32-36) g/dL RDW (11.5-14.0) % Plt Count (150-450) x10^3/uL MPV (7.5-11.0) fL Gran % (36.0-66.0) % Immature Gran % (Auto) (0.00-0.4) % Nucleat RBC Rel Count (0.00-0.1) % Eos # (Auto) (0-0.5) x10^3/uL Immature Gran # (Auto) (0.00-0.03) x10^3u/L Absolute Lymphs (auto) (1.0-4.6) x10^3/uL Absolute Monos (auto) (0.0-1.3) x10^3/uL Absolute Nucleated RBC (0.00-0.01) x10^3u/L Lymphocytes % (24.0-44.0) % Monocytes % (0.0-12.0) % Eosinophils % (0.00-5.0) % Basophils % (0.0-0.4) % Absolute Granulocytes (1.4-6.9) x10^3/uL Basophils # (0-0.4) x10^3/uL D-Dimer (0.0-0.50) mg/L Sodium (137-145) mmol/L Potassium (3.5-5.1) mmol/L Chloride (98-107) mmol/L Carbon Dioxide (22-30) mmol/L Anion Gap (5-15) MEQ/L BUN (9-20) mg/dL Creatinine (0.66-1.25) mg/dL Estimated GFR ML/MIN Glucose (74-106) mg/dL Lactic Acid 2.4 H 2.4 H (0.4-2.0) Calcium (8.4-10.2) mg/dL Magnesium (1.6-2.3) mg/dL Total Bilirubin (0.2-1.3) mg/dL AST (17-59) U/L ALT (0-50) U/L Alkaline Phosphatase (38-126) U/L Troponin I (0.000-0.034) ng/mL Serum Total Protein (6.3-8.2) g/dL Albumin (3.5-5.0) g/dL Urine Opiates Level NEGATIVE (NEGATIVE) Ur Methadone NEGATIVE (NEGATIVE) Urine Barbiturates POSITIVE (NEGATIVE) Ur Phencyclidine (PCP) NEGATIVE (NEGATIVE) Urine Amphetamine NEGATIVE (NEGATIVE) U Benzodiazepine Level NEGATIVE (NEGATIVE) Urine Cocaine NEGATIVE (NEGATIVE) Urine Marijuana (THC) NEGATIVE (NEGATIVE) Influenza Type A Ag (NEGATIVE) Influenza Type B Ag (NEGATIVE) RSV (PCR) (NEGATIVE) SARS-CoV-2 (PCR) (NEGATIVE) 09/15/22 09/15/22 Range/Units 06:05 10:08 WBC (4.0-10.5) x10^3/uL RBC (4.1-5.6) x10^6/uL Hgb (12.5-18.0) g/dL Hct (42-50) % MCV (78-100) fL MCH (26-32) pg MCHC (32-36) g/dL RDW (11.5-14.0) % Plt Count (150-450) x10^3/uL MPV (7.5-11.0) fL Gran % (36.0-66.0) % Immature Gran % (Auto) (0.00-0.4) % Nucleat RBC Rel Count (0.00-0.1) % Eos # (Auto) (0-0.5) x10^3/uL Immature Gran # (Auto) (0.00-0.03) x10^3u/L Absolute Lymphs (auto) (1.0-4.6) x10^3/uL Absolute Monos (auto) (0.0-1.3) x10^3/uL Absolute Nucleated RBC (0.00-0.01) x10^3u/L Lymphocytes % (24.0-44.0) % Monocytes % (0.0-12.0) % Eosinophils % (0.00-5.0) % Basophils % (0.0-0.4) % Absolute Granulocytes (1.4-6.9) x10^3/uL Basophils # (0-0.4) x10^3/uL D-Dimer (0.0-0.50) mg/L Sodium (137-145) mmol/L Potassium (3.5-5.1) mmol/L Chloride (98-107) mmol/L Carbon Dioxide (22-30) mmol/L Anion Gap (5-15) MEQ/L BUN (9-20) mg/dL Creatinine (0.66-1.25) mg/dL Estimated GFR ML/MIN Glucose (74-106) mg/dL Lactic Acid (0.4-2.0) Calcium (8.4-10.2) mg/dL Magnesium (1.6-2.3) mg/dL Total Bilirubin (0.2-1.3) mg/dL AST (17-59) U/L ALT (0-50) U/L Alkaline Phosphatase (38-126) U/L Troponin I < 0.012 < 0.012 (0.000-0.034) ng/mL Serum Total Protein (6.3-8.2) g/dL Albumin (3.5-5.0) g/dL Urine Opiates Level (NEGATIVE) Ur Methadone (NEGATIVE) Urine Barbiturates (NEGATIVE) Ur Phencyclidine (PCP) (NEGATIVE) Urine Amphetamine (NEGATIVE) U Benzodiazepine Level (NEGATIVE) Urine Cocaine (NEGATIVE) Urine Marijuana (THC) (NEGATIVE) Influenza Type A Ag (NEGATIVE) Influenza Type B Ag (NEGATIVE) RSV (PCR) (NEGATIVE) SARS-CoV-2 (PCR) (NEGATIVE) - Radiology Impressions Radiology Exams & Impressions: Radiology Procedures Category Date Time Status CHEST 1 VIEW (PORTABLE) Stat Exams 09/15/22 01:36 Completed - Other Procedures and Tests Respiratory Therapy 09/15/22 09:35 EKG ONCE 09/15/22 10:15 Respiratory Therapy Assessment DAILY 09/17/22 05:00 EKG ONCE 09/18/22 05:00 EKG ONCE Assessment/Plan (1) Bronchitis Current Visit: No Status: Acute Assessment & Plan: On antibiotics. Monitor clinical course Code(s): J40 - BRONCHITIS, NOT SPECIFIED ACUTE OR CHRONIC (2) Chest pain Current Visit: No Status: Ruled-out Assessment & Plan: No acute EKG changes. Trend troponin. Monitor on tele. On Plavix + ASA 81 mg. Will need to follow up with Dr. Velasquez (apparent plan is for revascularization) Code(s): R07.9 - CHEST PAIN, UNSPECIFIED (3) COPD exacerbation Current Visit: Yes Status: Acute Assessment & Plan: Nebs, steroids, antibiotics. Dyspnea and wheezing are improving. Code(s): J44.1 - CHRONIC OBSTRUCTIVE PULMONARY DISEASE W (ACUTE) EXACERBATION Telemedicine Encounter - Telemedicine Encounter Telemedicine Encounter: The entirety of this encounter was performed via Telemedicine"
[2022-09-15] MEDS: solu-MEDROL 60 MG, Sterile H2O 10 ml 2 ML IV SCH ×4 (11:57→18:00)
[2022-09-15] MEDS ORDERED: MEDICATION INTERVENTION MC SCH ×2 (12:00)
[2022-09-15] MEDS: ECOTRIN 81 MG PO SCH (12:47)
[2022-09-15] MEDS: Toprol Xl 50 MG PO SCH (12:47)
[2022-09-15] MEDS: PLAVIX Tablet PO SCH (12:47)
[2022-09-15] MEDS: MORPHINE SULFATE 2 MG INJ IV PRN ×2 (16:32→22:55)
[2022-09-15] MEDS ORDERED: Zithromax 500 MG/ 250 ML NaCl Premix 500 MG/250 ML IVPB IV SCH (22:00)
[2022-09-15] MEDS ORDERED: ZOCOR 20MG PO SCH (22:00)
[2022-09-15] MEDS ORDERED: NON-FORMULARY ITEM (Buprenorphine Hcl/Naloxone Hcl [Suboxone 8 Mg-2 Mg Sl Film] 1 EACH Fil SL SCH (22:00)
[2022-09-15] MEDS ORDERED: NON-FORMULARY ITEM (Atorvastatin Calcium [Atorvastatin Calcium] 80 MG Tablet) PO SCH (22:00)
[2022-09-16] MEDS: solu-MEDROL 60 MG, Sterile H2O 10 ml 2 ML IV SCH ×6 (00:18→12:19)
[2022-09-16 05:46] LABS: Risk Ratio 2.3
[2022-09-16] MEDS: MORPHINE SULFATE 2 MG INJ IV PRN ×2 (06:11→13:05)
[2022-09-16] MEDS ORDERED: VENTOLIN COMMON CANISTER IH PRN (07:15)
[2022-09-16] MEDS ORDERED: Nicoderm CQ 21 MG TOP SCH (08:00)
[2022-09-16] MEDS: ECOTRIN 81 MG PO SCH (10:06)
[2022-09-16] MEDS: ENOXAPARIN SODIUM SQ SCH (10:06)
[2022-09-16] MEDS: Toprol Xl 50 MG PO SCH (10:06)
[2022-09-16] MEDS: PLAVIX Tablet PO SCH (10:06)
[2022-09-16 13:19] VITALS: BP 116/77; PULSE 76; O2SAT 96
--- NOTE | 2022-09-16 17:22 | PCM.DS ---
Discharge Summary Date of Admission: 09/15/22 08:30 Admitting Physician: JEAN CARLOS SILVA MD Primary Care Provider: CHARITY MANNING Allergies Allergies dicyclomine Allergy (Severe, Verified 09/15/22 01:22) Tightness of Throat acetaminophen [From Darvocet-N 100] Allergy (Mild, Verified 09/15/22 01:22) throat swelling propoxyphene napsylate [From Darvocet-N 100] Allergy (Mild, Verified 09/15/22 01:22) throat swelling sulfamethoxazole [From Bactrim DS] Allergy (Verified 09/15/22 01:22) Rash trimethoprim [From Bactrim DS] Allergy (Verified 09/15/22 01:22) Rash Hospital Summary - Hospital Course Hospital Course: Patient presented with COPD exacerbation and improved with therapy. The patient will be discharged with azithromycin to complete a total 5 day course, and a medrol dose pack. The patient was seen and examined via telemedicine. The entirety of this enco unter was performed via telemedicine. The patient consented to this telemedicine encounter. - Vitals & Intake/Output Vital Signs: Vital Signs Temperature 97.3 F 09/16/22 12:00 Pulse Rate 76 09/16/22 12:00 Respiratory Rate 14 09/16/22 12:00 Blood Pressure 116/77 09/16/22 12:00 O2 Sat by Pulse Oximetry 96 09/16/22 12:00 Intake & Output: Intake & Output 09/14/22 09/15/22 09/16/22 09/17/22 11:59 11:59 11:59 11:59 Intake Total 240 2140 240 Balance 240 2140 240 Weight 567.3 kg 57.4 kg - Lab Result Diagrams: 09/15/22 02:00 09/15/22 02:00 Lab Results-Last 24 Hrs: Lab Results-Last 24 Hours 09/16/22 Range/Units 04:19 Triglycerides 69 (30-150) mg/dL Cholesterol 133 (50-200) mg/dL LDL Cholesterol 60 (30-100) mg/dL HDL Cholesterol 59 (40-60) mg/dL Heart Disease Risk Ratio 2.3 - Radiology Exams Ordered Rad Exams-Entire Visit: Radiology Procedures Category Date Time Status CHEST 1 VIEW (PORTABLE) Stat Exams 09/15/22 01:36 Completed - Procedures and Test Procedures and Tests throughout Hospitalization: Therapy Orders & Screens 09/15/22 02:13 Respiratory Therapy Assessment DAILY Comment: 09/15/22 08:37 EKG Q8HX2,QAMX3,PRN Comment: Respiratory Therapy Consult ONCE Comment: Reason For Exam: 09/15/22 09:06 RT Screen per Nursing Assess ONCE Comment: Protocol Order Physician Instructions: Greater than 3 points order RT Admission Screen Reason For Exam: Triggered on Admission Diagnosis: copd Diagnosis: copd Pneumonia: No Home O2: No Asthma: Yes CHF: No Home CPAP/BIPAP: No Home Nebs/MDI: Yes Total Points: 9 09/15/22 09:35 EKG ONCE Comment: Diagnosis: copd 09/15/22 10:15 Respiratory Therapy Assessment DAILY Comment: Diagnosis: copd 09/16/22 05:00 EKG DAILY Comment: Diagnosis: copd EKG ONCE Comment: Diagnosis: copd 09/17/22 05:00 EKG ONCE Comment: Diagnosis: copd 09/18/22 05:00 EKG ONCE Comment: Diagnosis: copd Discharge Exam General Appearance: no apparent distress, alert Neurologic Exam: alert, oriented x 3, 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, 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, normal mood/affect, nml cerebellar function Eye Exam: PERRL, EOMI Ears, Nose, Throat Exam: normal ENT inspection Neck Exam: normal inspection Respiratory Exam: normal breath sounds Cardiovascular Exam: regular rate/rhythm, normal heart sounds Gastrointestinal/Abdomen Exam: soft, normal bowel sounds Male Genitalia Exam: deferred Rectal Exam: deferred Back Exam: normal inspection Extremity Exam: normal inspection Skin Exam: normal color Final Diagnosis/Problem List - Final Discharge Diagnosis/Problem (1) Bronchitis Status: Acute Assessment & Plan: improved Code(s): J40 - BRONCHITIS, NOT SPECIFIED ACUTE OR CHRONIC (2) Chest pain Status: Ruled-out Assessment & Plan: improved. No evidence of ACS. Code(s): R07.9 - CHEST PAIN, UNSPECIFIED (3) COPD exacerbation Status: Acute Assessment & Plan: Improved. Plan to discharge on oral steroids and antibiotics. Code(s): J44.1 - CHRONIC OBSTRUCTIVE PULMONARY DISEASE W (ACUTE) EXACERBATION - Discharge Disposition: Home, Self-Care Condition: Stable Prescriptions: New Azithromycin 500 mg PO DAILY 4 Days #4 tablet Methylprednisolone Packet [Medrol Dosepack] 4 mg PO UD #21 packet Continue Aspirin EC 81 mg [Ecotrin 81 mg] 81 mg PO DAILY Clopidogrel Bisulfate [Plavix] 75 mg PO DAILY Vilazodone HCl [Viibryd] 1 tab PO UD Buprenorphine HCl/Naloxone HCl [Suboxone 8 mg-2 mg Sl Film] 8 mg SL BID Albuterol Sulfate [Albuterol Sulfate Hfa] 8.5 gm IH Q4-6HPRN PRN PRN Reason: Shortness Of Breath/Wheezing Famotidine 20 mg [Pepcid 20 MG] 20 mg PO BID PRN PRN 30 Days #60 tablet PRN Reason: epigastric burning Metoprolol Succinate 50 mg [Toprol Xl 50 MG] 50 mg PO DAILY #30 tablet Atorvastatin Calcium 80 mg PO QHS #30 tablet Instructions: Exacerbation of COPD (DC) Follow up with: OTTO CHAUDHARI, DEDE, RN [NON-STAFF PHY W/O PRIVILEGES] - 09/23/22 10:40 am
== END 2022-09-16 14:12 | disposition home or self-care (01) ==
LOC: ED 01:20 → MED SURG 08:30
PROVIDERS: ADMIT Internal Medicine; ATTEND Family Medicine
DX: J40 Bronchitis, not specified as acute or chronic (principal); R07.9 Chest pain, unspecified; J44.1 Chronic obstructive pulmonary disease with (acute) exacerbation; I25.10 Atherosclerotic heart disease of native coronary artery without angina pectoris; I10 Essential (primary) hypertension; I25.2 Old myocardial infarction; Z79.01 Long term (current) use of anticoagulants; Z79.899 Other long term (current) drug therapy; Z20.828 Contact with and (suspected) exposure to other viral communicable diseases; Z82.49 Family history of ischemic heart disease and other diseases of the circulatory system; Z72.0 Tobacco use
CPT/HCPCS: 0241U; 36000; 36415; 71045; 80053; 80061; 80307; 83605; 83721; 83735; 84484; 85025; 85379; 93005; 93041; 94640; 94760; 96365; 96374; 96375; 99285; Q3014; 93268; J0456; J1650; J2060; J2270; J2405; J2930; J7609; A9270-GY; G0378

== ENCOUNTER 2022-12-01 20:49 | Observation (INO) | payer OTHER ==
[2022-12-01] MEDS ORDERED: MORPHINE SULFATE 4 MG INJ IV ONE (21:27)
[2022-12-01] MEDS ORDERED: BABY ASPIRIN 81 MG CHEW PO ONE (21:27)
[2022-12-01] MEDS ORDERED: Zofran 4 MG/2 ML VIAL IV ONE (21:27)
[2022-12-01] MEDS ORDERED: MORPHINE SULFATE 4 MG INJ ONE (21:32)
[2022-12-01] MEDS ORDERED: Zofran 4 MG/2 ML VIAL ONE (21:32)
[2022-12-01] MEDS ORDERED: BABY ASPIRIN 81 MG CHEW ONE (21:32)
[2022-12-01 21:34] LABS: Absolute Neutrophil Ct (ANC) 13.95 x10^3/uL (1.4-6.9); BASOPHIL % 0.6 % (0.0-0.4); Eosinophil % 2.7 % (0.00-5.0); Eosinophil (Absolute #) 0.46 x10^3/uL (0-0.5); Hematocrit 42.9 % (42-50); Hemoglobin 14.1 g/dL (12.5-18.0); IMMATURE GRAN # 0.07 x10^3u/L (0.00-0.03); IMMATURE GRAN % 0.4 % (0.00-0.4); Lymphocyte (Absolute #) 1.84 x10^3/uL (1.0-4.6); Lymphocytes % 10.7 % (24.0-44.0); Mean Cell Volume 88.3 fL (78-100); Mean Corpuscular Hgb Concent. 32.9 g/dL (32-36); Mean Platelet Volume 11.4 fL (7.5-11.0); Monocyte (Absolute #) 0.84 x10^3/uL (0.0-1.3); Monocytes % 4.9 % (0.0-12.0); Neutrophil % 80.7 % (36.0-66.0); Platelet Count 244 x10^3/uL (150-450); Red Blood Count 4.86 x10^6/uL (4.1-5.6); White Blood Count 17.3 x10^3/uL (4.0-10.5)
[2022-12-01 21:59] LABS: ALBUMIN 4.7 g/dL (3.5-5.0); ALKALINE PHOSPHATASE 65 U/L (38-126); ANION GAP 15.6 MEQ/L (5-15); BLOOD UREA NITROGEN 12 mg/dL (9-20); CHLORIDE 104 mmol/L (98-107); CK-Creatinine Phosphokinase 54 U/L (55-170); Calcium 9.1 mg/dL (8.4-10.2); Carbon Dioxide 24 mmol/L (22-30); EST GLOMERULAR FILTRATION RATE > 60.0 ML/MIN; Glucose 107 mg/dL (74-106); NT PRO BNPII 252 pg/mL (<300); Potassium 4.2 mmol/L (3.5-5.1); SGOT/AST 62 U/L (17-59); SGPT/ALT 76 U/L (0-50); SODIUM 139 mmol/L (137-145); Total Protein 7.5 g/dL (6.3-8.2)
--- NOTE | 2022-12-01 22:55 | ERPHSYRPT ---
- History of Present Illness Time Seen by Provider: 12/01/22 21:16 Historian: patient Exam Limitations: no limitations Patient Subjective Stated Complaint: pt states that at approx 1900 he started experiencing mid upper chest "heartburn" pain that was accompanied by sharp pains up his left neck, and slight numbness to left armpit. states that pain was 10/10 prior to SL NTG given to him at half-way and now rates it 7/10 and denies numbness or tingling. states he has been nauseated and has vomited 4 times since pain started. states at first vomit looked like food then became "like stomach acid". states after SL NTG had a little bit of lightheadedness that resolved after short period of time. reports slight sob. pt also reports that he hasn't had a BM in approx 3 weeks. Triage Nursing Assessment: pt brought into room 5 via EMS stretcher and pt ambulated independently with slow steady gait from EMS cot to ED cart. pt is alert and oriented times three, able to speak in complete sentences, able to move all extremities, and with resp even and unlabored. heart sounds present and normal upon auscultation. lung sounds clear anterior bilat in all reddy. no edema noted. bilat radial and pedal pulses palpable, regular, and equal. abd rounded, slightly firm with hypoactive bowel sounds in all quadrants. at this time pt denies lightheadedness, dizziness, sob, difficulty breathing, difficulty with urination, change to food/ fluid intake. Physician History: 47-year-old male with a history of coronary artery disease, hypertension, hyperlipidemia, tobacco abuse, chronic back pain presented in the ER with chief complaint of sudden onset substernal chest pain almost 2 hours prior to arrival with radiation to the left arm and back of neck, severe sharp, partial relief after taking 2 nitros with return of pain after few minutes. He has to take third nitro and feeling a little better. Still having 5/10 intensity dull aching pain. No difficulty breathing more than usual. No fever or chills reported. Has chronic cough which is not any worse than usual. Patient does report having constipation. Nitro Today/Relief: 0.4 mg x 3 Aspirin Treatment Today: unknown Allergies/Adverse Reactions: dicyclomine Allergy (Severe, Verified 12/01/22 21:30) Tightness of Throat doxycycline Allergy (Intermediate, Verified 12/01/22 21:30) Tightness of Throat acetaminophen [From Darvocet-N 100] Allergy (Mild, Verified 12/01/22 21:30) throat swelling propoxyphene napsylate [From Darvocet-N 100] Allergy (Mild, Verified 12/01/22 21:30) throat swelling sulfamethoxazole [From Bactrim DS] Allergy (Verified 12/01/22 21:30) Rash trimethoprim [From Bactrim DS] Allergy (Verified 12/01/22 21:30) Rash Home Medications: Aspirin EC 81 mg [Ecotrin 81 mg] 81 mg PO DAILY 12/19/21 [History] Clopidogrel Bisulfate [Plavix] 75 mg PO DAILY 04/10/22 [History] Albuterol Sulfate [Albuterol Sulfate Hfa] 8.5 gm IH BID PRN PRN 08/17/22 [History] Buprenorphine HCl/Naloxone HCl [Suboxone 8 mg-2 mg Sl Film] 1.2 tab SL BID 12/02 [History] ARIPiprazole [Aripiprazole] 20 mg PO DAILY 12/01/22 [History] Albuterol 2.5 mg/3 ml Neb [Proventil 2.5 mg/3 ml Neb] 2.5 mg IH BID PRN 12/01/22 [History] Amlodipine Besylate 5 mg [Norvasc 5 mg] 5 mg PO HS 12/01/22 [History] Amoxicillin 500 mg PO BID 12/01/22 [History] Metoprolol Succinate 50 mg [Toprol Xl 50 MG] 50 mg PO HS 12/01/22 [History] Nitroglycerin 0.4 mg Tablet [Nitrostat 0.4 MG Tablet] 0.4 mg SL Q5MIN PRN MR X 3 PRN 12/01/22 [History] Omeprazole 20 mg PO DAILY 12/01/22 [History] Ondansetron ODT 4 MG [Zofran Odt 4 mg] 4 mg PO BID PRN PRN 12/01/22 [History] Hx Tetanus, Diphtheria Vaccination/Date Given: Yes Hx Influenza Vaccination/Date Given: No Hx Pneumococcal Vaccination/Date Given: No Immunizations Up to Date: Yes Travel Risk - International Travel Have you traveled outside of the country in past 3 weeks: No - Coronavirus Screening Are you exhibiting any of the following symptoms?: No Close contact with a COVID-19 positive Pt in past 14-21 Days: No - Vaccine Status Have you recieved a Covid-19 vaccination: No - Review of Systems Constitutional: No Symptoms Eyes: No Symptoms Ears, Nose, & Throat: No Symptoms Respiratory: Cough Cardiac: Chest Pain Abdominal/Gastrointestinal: Constipation Genitourinary Symptoms: No Symptoms Musculoskeletal: No Symptoms Neurological: No Symptoms Endocrine: No Symptoms - Past Medical History Pertinent Past Medical History: Yes Neurological History: Peripheral Neuropathy ENT History: No Pertinent History Cardiac History: Coronary Artery Disease, Hypertension, Myocardial Infarction ([place]) Respiratory History: Asthma Endocrine Medical History: No Pertinent History Musculoskeletal History: Arthritis GI Medical History: No Pertinent History History: No Pertinent History Psycho-Social History: Depression, Other Male Reproductive Disorders: No Pertinent History Other Medical History: ADHD - Past Surgical History Past Surgical History: Yes Neuro Surgical History: No Pertinent History Cardiac: Cardiac Catheterization Respiratory: No Pertinent History Gastrointestinal: No Pertinent History Genitourinary: No Pertinent History Musculoskeletal: Orthopedic Surgery Male Surgical History: No Pertinent History, Vasectomy Other Surgical History: carpel tunnel, failed heart cath , BB removed from left foot, vasectomy - Social History Smoking Status: Current every day smoker How long have you smoked: 34 years Exposure to second hand smoke: No Drug Use: none Patient Lives Alone: No (incarcerated) Significant Family History: heart disease (father, mother, and brother all from CAD) - Nursing Vital Signs Nursing Vital Signs: Initial Vital Signs Temperature 98.2 F 12/01/22 20:50 Pulse Rate 100 H 12/01/22 20:50 Respiratory Rate 22 12/01/22 20:50 Blood Pressure 132/97 12/01/22 20:50 O2 Sat by Pulse Oximetry 100 12/01/22 20:50 Pain Scale Pain Intensity 7 - Physical Exam General Appearance: no apparent distress, alert Eye Exam: PERRL/EOMI Ears, Nose, Throat Exam: normal ENT inspection, TMs normal, pharynx normal, moist mucous membranes Neck Exam: normal inspection, non-tender, supple, full range of motion Respiratory Exam: normal breath sounds, lungs clear Cardiovascular Exam: regular rate/rhythm, normal heart sounds Gastrointestinal/Abdomen Exam: soft, normal bowel sounds, tenderness (Mild generalized) Back Exam: normal inspection Extremity Exam: normal inspection, normal range of motion Neurologic Exam: alert, oriented x 3, cooperative SpO2 Interpretation: normal SpO2: 94 O2 Delivery: Room Air - Course EKG Interpreted by Me: RATE ([id number]), Sinus Rhythm, NORMAL AXIS, NORMAL INTERVALS, NORMAL QRS Ordered Tests: Active Orders 24 hr Category Date Time Status Cattle Killer STAT Care 12/01/22 21:27 Active EKG-ER Only STAT Care 12/01/22 21:27 Active IV Insertion STAT Care 12/01/22 21:27 Active Pulse Oximetry (ED) STAT Care 12/01/22 21:27 Active ABDOMEN AND PELVIS W/0 CONTRAS [CT] Stat Exams 12/01/22 22:32 Completed CHEST 1 VIEW (PORTABLE) Stat Exams 12/01/22 21:27 Taken CBC W DIFF Stat Lab 12/01/22 21:15 Completed CK-Creatinine Phosphokinase Stat Lab 12/01/22 21:15 Completed CMP Stat Lab 12/01/22 21:15 Completed LIPASE Stat Lab 12/01/22 22:33 Completed NT PRO BNPII Stat Lab 12/01/22 21:15 Completed TROPONIN Q4H Lab 12/01/22 21:15 Completed TROPONIN Q4H Lab 12/02/22 01:30 Ordered TROPONIN Q4H Lab 12/02/22 05:30 Ordered Transfer Order Routine Transfer 12/01/22 Ordered Medication Summary Discontinued Medications Generic Name Dose Route Start Last Admin Trade Name Freq PRN Reason Stop Dose Admin Aspirin 243 mg 12/01/22 21:27 12/01/22 21:33 Aspirin 81 Mg Tab.Chew PO 12/01/22 21:28 243 mg STAT ONE Administration Aspirin Confirm 12/01/22 21:32 Aspirin 81 Mg Tab.Chew Administered 12/01/22 21:33 Dose 243 mg .ROUTE .STK-MED ONE Morphine Sulfate 4 mg 12/01/22 21:27 12/01/22 21:33 Morphine Sulfate 4 Mg/Ml Injection IV 12/01/22 21:28 4 mg STAT ONE Administration Morphine Sulfate Confirm 12/01/22 21:32 Morphine Sulfate 4 Mg/Ml Injection Administered 12/01/22 21:33 Dose 4 mg .ROUTE .STK-MED ONE Ondansetron HCl 4 mg 12/01/22 21:27 12/01/22 21:33 Ondansetron Hcl 4 Mg/2 Ml Vial IV 12/01/22 21:28 4 mg STAT ONE Administration Ondansetron HCl Confirm 12/01/22 21:32 Ondansetron Hcl 4 Mg/2 Ml Vial Administered 12/01/22 21:33 Dose 4 mg .ROUTE .[facility]-MED ONE Lab/Rad Data: Laboratory Result Diagrams 12/01/22 21:15 12/01/22 21:15 Laboratory Results 12/01/22 12/01/22 12/01/22 Range/Units 22:33 21:15 21:15 WBC (4.0-10.5) x10^3/uL RBC (4.1-5.6) x10^6/uL Hgb (12.5-18.0) g/dL Hct (42-50) % MCV (78-100) fL MCH (26-32) pg MCHC (32-36) g/dL RDW (11.5-14.0) % Plt Count (150-450) x10^3/uL MPV (7.5-11.0) fL Gran % (36.0-66.0) % Immature Gran % (Auto) (0.00-0.4) % Nucleat RBC Rel Count (0.00-0.1) % Eos # (Auto) (0-0.5) x10^3/uL Immature Gran # (Auto) (0.00-0.03) x10^3u/L Absolute Lymphs (auto) (1.0-4.6) x10^3/uL Absolute Monos (auto) (0.0-1.3) x10^3/uL Absolute Nucleated RBC (0.00-0.01) x10^3u/L Lymphocytes % (24.0-44.0) % Monocytes % (0.0-12.0) % Eosinophils % (0.00-5.0) % Basophils % (0.0-0.4) % Absolute Granulocytes (1.4-6.9) x10^3/uL Basophils # (0-0.4) x10^3/uL Sodium 139 (137-145) mmol/L Potassium 4.2 (3.5-5.1) mmol/L Chloride 104 (98-107) mmol/L Carbon Dioxide 24 (22-30) mmol/L Anion Gap 15.6 H (5-15) MEQ/L BUN 12 (9-20) mg/dL Creatinine 0.60 L (0.66-1.25) mg/dL Estimated GFR > 60.0 ML/MIN Glucose 107 H (74-106) mg/dL Calcium 9.1 (8.4-10.2) mg/dL Total Bilirubin 0.60 (0.2-1.3) mg/dL AST 62 H (17-59) U/L ALT 76 H (0-50) U/L Alkaline Phosphatase 65 (38-126) U/L Creatine Kinase 54 L (55-170) U/L Troponin I < 0.012 (0.000-0.034) ng/mL NT-Pro-B Natriuret Pep 252 (<300) pg/mL Serum Total Protein 7.5 (6.3-8.2) g/dL Albumin 4.7 (3.5-5.0) g/dL Lipase 67 (23-300) U/L 12/01/22 Range/Units 21:15 WBC 17.3 H (4.0-10.5) x10^3/uL RBC 4.86 (4.1-5.6) x10^6/uL Hgb 14.1 (12.5-18.0) g/dL Hct 42.9 (42-50) % MCV 88.3 (78-100) fL MCH 29.0 (26-32) pg MCHC 32.9 (32-36) g/dL RDW 12.0 (11.5-14.0) % Plt Count 244 (150-450) x10^3/uL MPV 11.4 H (7.5-11.0) fL Gran % 80.7 H (36.0-66.0) % Immature Gran % (Auto) 0.4 (0.00-0.4) % Nucleat RBC Rel Count 0.0 (0.00-0.1) % Eos # (Auto) 0.46 (0-0.5) x10^3/uL Immature Gran # (Auto) 0.07 H (0.00-0.03) x10^3u/L Absolute Lymphs (auto) 1.84 (1.0-4.6) x10^3/uL Absolute Monos (auto) 0.84 (0.0-1.3) x10^3/uL Absolute Nucleated RBC 0.00 (0.00-0.01) x10^3u/L Lymphocytes % 10.7 L (24.0-44.0) % Monocytes % 4.9 (0.0-12.0) % Eosinophils % 2.7 (0.00-5.0) % Basophils % 0.6 (0.0-0.4) % Absolute Granulocytes 13.95 H (1.4-6.9) x10^3/uL Basophils # 0.10 (0-0.4) x10^3/uL Sodium (137-145) mmol/L Potassium (3.5-5.1) mmol/L Chloride (98-107) mmol/L Carbon Dioxide (22-30) mmol/L Anion Gap (5-15) MEQ/L BUN (9-20) mg/dL Creatinine (0.66-1.25) mg/dL Estimated GFR ML/MIN Glucose (74-106) mg/dL Calcium (8.4-10.2) mg/dL Total Bilirubin (0.2-1.3) mg/dL AST (17-59) U/L ALT (0-50) U/L Alkaline Phosphatase (38-126) U/L Creatine Kinase (55-170) U/L Troponin I (0.000-0.034) ng/mL NT-Pro-B Natriuret Pep (<300) pg/mL Serum Total Protein (6.3-8.2) g/dL Albumin (3.5-5.0) g/dL Lipase (23-300) U/L - Progress Progress: improved Air Movement: good Progress Note: 12/01/22 22:30 47-year-old male with a history of coronary artery disease, hypertension, hyperlipidemia, tobacco abuse, chronic back pain presented in the ER with chief complaint of sudden onset substernal chest pain almost 2 hours prior to arrival with radiation to the left arm and back of neck, severe sharp, partial relief after taking 2 nitros with return of pain after few minutes. He has to take third nitro and feeling a little better. Still having 5/10 intensity dull aching pain. No difficulty breathing more than usual. No fever or chills reported. Has chronic cough which is not any worse than usual. Patient does report having constipation. EKG showed normal sinus rhythm with no acute ischemic changes. Stable vitals. Given symptomatic treatment with morphine along with aspirin. On reevaluation pain is much better. Has a white count of 17, negative initial troponins. Discussed with Dr. Coyle, reviewed history, work-up and patient is being admitted for observation. I have discussed the results of work-up with patient in detail and need for admission and he agreed with it. Since patient is having some abdominal distention and unable to have a bowel movement for over 2 weeks, will obtain CT abdomen pelvis to make sure its not any obstruction. 12/01/22 23:28 CT abdomen pelvis showed moderate fecal load consistent with constipation and no other acute intra-abdominal findings. 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 - Discussion of managment Care discussed with:: hospitalist Reviewed:: Test results Agreed on:: Treatment plan, place in obs Will see patient: in hospital - Diagnostic Testing Diagnostic test were ordered, analyzed, and reviewed by me: Yes Radiological Interpretation: Interpreted by me, Reviewed by me - Risk of complications The pt has a high risk of morbidity or mortality based on: Decision regarding hospitilization or escalation of hosp level of care - Departure Departure Disposition: Observation Clinical Impression: Chest pain, rule out acute myocardial infarction, Constipation Condition: Stable Critical Care Time: No Referrals: OTTO CHAUDHARI, DEDE, RN [Primary Care Provider] - Follow up/PCP as directed
--- NOTE | 2022-12-01 23:23 | XRAY ---
CLINICAL HISTORY:abd. pain, constipation COMPARISON:12/17/2021. TECHNIQUE:CT scan of the abdomen and pelvis was performed without IV contrast. Coronal and sagittal reconstructive images were also obtained. FINDINGS: Abdomen: The liver is of average size. No focal or diffuse parenchymal abnormality. The intrahepatic biliary radicals and the bile ducts are normal. The spleen, pancreas, adrenal glands are unremarkable. The kidneys are unremarkable. They are normal in size and shape. No calculi or hydronephrosis. The gallbladder is distended. There is no evidence of wall thickening/ pericholecystic collection. The large bowel is loaded with fecal matter. The visualized small bowel loops are unremarkable. There are few subcentimetric mesenteric nodes lymph nodes. A small fat-containing umbilical hernia measuring 1.4 x 1 cm. Pelvis: The urinary bladder is unremarkable. The rectosigmoid colon is unremarkable. The prostate appears unremarkable. No evidence of pelvic lymphadenopathy. The lumbar spine shows degenerative changes with reduced intervertebral disc space between L3 and L4 vertebral bodies IMPRESSION: 1. Fecal loaded large bowel, could represent functional abnormality - constipation. 2. No significant acute abnormality detected in abdomen and pelvis 3. A small fat-containing umbilical hernia measuring 1.4 x 1 cm. Electronically Signed by: Pranav Pratt MD. (12/01/2022 22:22:19 [employer])
[2022-12-02] MEDS ORDERED: Nitrostat 0.4 MG Tablet SL PRN (00:30)
[2022-12-02] MEDS ORDERED: MORPHINE SULFATE 2 MG INJ IV PRN (00:30)
[2022-12-02] MEDS ORDERED: Dulcolax 10 MG SUPP PR PRN (00:34)
[2022-12-02] MEDS ORDERED: Nicoderm CQ 21 MG TOP SCH ×2 (00:45→22:00)
[2022-12-02] MEDS ORDERED: NORVASC 5 MG ONE (01:00)
[2022-12-02] MEDS ORDERED: PROVENTIL 2.5 MG/3 ML NEB IH SCH (01:00)
[2022-12-02] MEDS ORDERED: Toprol Xl 50 MG PO ONE (01:00)
[2022-12-02] MEDS ORDERED: ZOCOR 20MG ONE (01:00)
--- NOTE | 2022-12-02 01:55 | PCM.HP ---
History of Present Illness - Chief Complaint Chief Complaint: Pain rule out acute AK Date: 12/01/22 History of Present Illness: is a 47 year old male with h/o CAD, tobacco abuse, and GERD, who presents from residential with chest pain. Patient notes severe constipation, stating has had no bowel movement in 3 weeks. He initially had onset of severe burning midepigastric pain, radiating to his neck. He was relaxing from that when had onset of substernal chest pressure, similar to his prior episodes. he notes he has had some chest pain each of the last three nights, but it has been relieved by nitroglycerin. This time, he took three nitroglycerin with only partial relief, so was sent by residential nurse to hospital. Said this episode of pain was associated with nausea and vomiting. Pain ultimately relieved by morphine in ED, but starting to recur on arrival to floor. Continues to smoke one pack per day; asking for a nicotine patch. Of note, patient was admitted to [facility] on 08/18 and 09/15 with similar complaints, ruled out for acute AK each time, and given treatments for COPD exacerbation in September. Patient eventually followed up with his rn unit manager, Dr. Oscar Velasquez, at [facility], and had a stress test done. However, he was placed in residential for violating a restraining order before getting the results. He also notes that he has had severe GI symptoms for the past few months, including severe nausea. He had some kind of positive colon cancer screening test (I believe he is describing a Cologuard test) and is scheduled for a colonoscopy, and then was added on an EGD because of his upper symptoms. But he is not allowed to know the dates of the procedures because he is in custody. - Review of Systems Constitutional: No Fever, No Chills Eyes: No Symptoms Ears, Nose, & Throat: No Throat Pain Respiratory: No Cough, No Short Of Breath Cardiac: Chest Pain, No Edema, No Palpitations, No Syncope, No Orthopnea, No PND Abdominal/Gastrointestinal: Abdominal Pain, Vomiting, Constipation Genitourinary Symptoms: No Dysuria, No Frequency, No Hematuria Musculoskeletal: No Symptoms Skin: No Symptoms All Other Systems: Reviewed and Negative Medications & Allergies Home Medications: Home Medication List Aspirin EC 81 mg [Ecotrin 81 mg] 81 mg PO DAILY 12/19/21 [History Confirmed 12/01/22] Clopidogrel Bisulfate [Plavix] 75 mg PO DAILY 04/10/22 [History Confirmed 12/01/22] Albuterol Sulfate [Albuterol Sulfate Hfa] 8.5 gm IH BID PRN PRN 08/17/22 [History Confirmed 12/01/22] Buprenorphine HCl/Naloxone HCl [Suboxone 8 mg-2 mg Sl Film] 1.2 tab SL BID 08/17/22 [History Confirmed 12/01/22] Atorvastatin Calcium 80 mg PO QHS #30 tablet 08/18/22 [Rx Confirmed 12/01/22] ARIPiprazole [Aripiprazole] 20 mg PO DAILY 12/01/22 [History Confirmed 12/01/22] Albuterol 2.5 mg/3 ml Neb [Proventil 2.5 mg/3 ml Neb] 2.5 mg IH BID PRN 12/01/22 [History Confirmed 12/01/22] Amlodipine Besylate 5 mg [Norvasc 5 mg] 5 mg PO HS 12/01/22 [History Co nfirmed 12/01/22] Amoxicillin 500 mg PO BID 12/01/22 [History Confirmed 12/01/22] Metoprolol Succinate 50 mg [Toprol Xl 50 MG] 50 mg PO HS 12/01/22 [History Confirmed 12/01/22] Nitroglycerin 0.4 mg Tablet [Nitrostat 0.4 MG Tablet] 0.4 mg SL Q5MIN PRN MR X 3 PRN 12/01/22 [History Confirmed 12/01/22] Omeprazole 20 mg PO DAILY 12/01/22 [History Confirmed 12/01/22] Ondansetron ODT 4 MG [Zofran Odt 4 mg] 4 mg PO BID PRN PRN 12/01/22 [History Confirmed 12/01/22] Allergies/Adverse Reactions: Allergies Allergy/AdvReac Type Severity Reaction Status Date / Time dicyclomine Allergy Severe Tightness Verified 12/01/22 21:30 of Throat doxycycline Allergy Intermediate Tightness Verified 12/01/22 21:30 of Throat acetaminophen Allergy Mild throat Verified 12/01/22 21:30 [From Darvocet-N 100] swelling propoxyphene napsylate Allergy Mild throat Verified 12/01/22 21:30 [From Darvocet-N 100] swelling sulfamethoxazole Allergy Rash Verified 12/01/22 21:30 [From Bactrim DS] trimethoprim Allergy Rash Verified 12/01/22 21:30 [From Bactrim DS] - Past Medical History Past Medical History: Yes Neurological History: Peripheral Neuropathy ENT History: No Pertinent History Cardiac History: Coronary Artery Disease, Hypertension, Myocardial Infarction (AK) Respiratory History: Asthma Endocrine Medical History: No Pertinent History Musculoskelatal History: Arthritis GI Medical History: No Pertinent History History: No Pertinent History Pyscho-Social History: Depression, Other Male Reproductive Disorders: No Pertinent History Comment: ADHD - Past Surgical History Past Surgical History: Yes Neuro Surgical History: No Pertinent History Cardiac History: Cardiac Catheterization Respiratory Surgery: No Pertinent History GI Surgical History: No Pertinent History Genitourinary Surgical Hx: No Pertinent History Musculskeletal Surgical Hx: Orthopedic Surgery Male Surgical History: No Pertinent History, Vasectomy Other Surgical History: carpel tunnel, failed heart cath , BB removed from left foot, vasectomy - Social History Smoking Status: Current every day smoker How long have you smoked: 34 years Exposure to second hand smoke: No Alcohol: Rarely Drug Use: none Significant Family History: heart disease (father, mother, and brother all from CAD) - Physical Exam Vital Signs: Vital Signs - 24 hr Temp Pulse Pulse Resp BP BP Pulse Ox 12/02/22 00:08 97.9 F 71 18 136/85 94 L 12/02/22 00:05 97.9 F 71 18 136/85 94 L 12/01/22 23:31 94 L 12/01/22 23:30 74 18 101/59 99 12/01/22 23:00 71 13 112/66 95 12/01/22 22:30 82 13 110/83 94 L 12/01/22 22:00 76 17 132/84 94 L 12/01/22 21:30 77 11 L 127/87 94 L 12/01/22 20:50 98.2 F 100 H 84 22 132/97 100 General Appearance: no apparent distress Neurologic Exam: alert, oriented x 3, normal mood/affect Eye Exam: PERRL/EOMI Respiratory Exam: normal breath sounds, lungs clear, No respiratory distress Cardiovascular Exam: regular rate/rhythm, No murmur, No edema Gastrointestinal/Abdomen Exam: soft, distention (mild), No tenderness Results - Labs Lab/Micro Results: Lab Results-Last 24 Hours 12/01/22 12/01/22 12/01/22 Range/Units 21:15 21:15 21:15 WBC 17.3 H (4.0-10.5) x10^3/uL RBC 4.86 (4.1-5.6) x10^6/uL Hgb 14.1 (12.5-18.0) g/dL Hct 42.9 (42-50) % MCV 88.3 (78-100) fL MCH 29.0 (26-32) pg MCHC 32.9 (32-36) g/dL RDW 12.0 (11.5-14.0) % Plt Count 244 (150-450) x10^3/uL MPV 11.4 H (7.5-11.0) fL Gran % 80.7 H (36.0-66.0) % Immature Gran % (Auto) 0.4 (0.00-0.4) % Nucleat RBC Rel Count 0.0 (0.00-0.1) % Eos # (Auto) 0.46 (0-0.5) x10^3/uL Immature Gran # (Auto) 0.07 H (0.00-0.03) x10^3u/L Absolute Lymphs (auto) 1.84 (1.0-4.6) x10^3/uL Absolute Monos (auto) 0.84 (0.0-1.3) x10^3/uL Absolute Nucleated RBC 0.00 (0.00-0.01) x10^3u/L Lymphocytes % 10.7 L (24.0-44.0) % Monocytes % 4.9 (0.0-12.0) % Eosinophils % 2.7 (0.00-5.0) % Basophils % 0.6 (0.0-0.4) % Absolute Granulocytes 13.95 H (1.4-6.9) x10^3/uL Basophils # 0.10 (0-0.4) x10^3/uL Sodium 139 (137-145) mmol/L Potassium 4.2 (3.5-5.1) mmol/L Chloride 104 (98-107) mmol/L Carbon Dioxide 24 (22-30) mmol/L Anion Gap 15.6 H (5-15) MEQ/L BUN 12 (9-20) mg/dL Creatinine 0.60 L (0.66-1.25) mg/dL Estimated GFR > 60.0 ML/MIN Glucose 107 H (74-106) mg/dL Calcium 9.1 (8.4-10.2) mg/dL Total Bilirubin 0.60 (0.2-1.3) mg/dL AST 62 H (17-59) U/L ALT 76 H (0-50) U/L Alkaline Phosphatase 65 (38-126) U/L Creatine Kinase 54 L (55-170) U/L Troponin I < 0.012 (0.000-0.034) ng/mL NT-Pro-B Natriuret Pep 252 (<300) pg/mL Serum Total Protein 7.5 (6.3-8.2) g/dL Albumin 4.7 (3.5-5.0) g/dL Lipase (23-300) U/L 12/01/22 Range/Units 22:33 WBC (4.0-10.5) x10^3/uL RBC (4.1-5.6) x10^6/uL Hgb (12.5-18.0) g/dL Hct (42-50) % MCV (78-100) fL MCH (26-32) pg MCHC (32-36) g/dL RDW (11.5-14.0) % Plt Count (150-450) x10^3/uL MPV (7.5-11.0) fL Gran % (36.0-66.0) % Immature Gran % (Auto) (0.00-0.4) % Nucleat RBC Rel Count (0.00-0.1) % Eos # (Auto) (0-0.5) x10^3/uL Immature Gran # (Auto) (0.00-0.03) x10^3u/L Absolute Lymphs (auto) (1.0-4.6) x10^3/uL Absolute Monos (auto) (0.0-1.3) x10^3/uL Absolute Nucleated RBC (0.00-0.01) x10^3u/L Lymphocytes % (24.0-44.0) % Monocytes % (0.0-12.0) % Eosinophils % (0.00-5.0) % Basophils % (0.0-0.4) % Absolute Granulocytes (1.4-6.9) x10^3/uL Basophils # (0-0.4) x10^3/uL Sodium (137-145) mmol/L Potassium (3.5-5.1) mmol/L Chloride (98-107) mmol/L Carbon Dioxide (22-30) mmol/L Anion Gap (5-15) MEQ/L BUN (9-20) mg/dL Creatinine (0.66-1.25) mg/dL Estimated GFR ML/MIN Glucose (74-106) mg/dL Calcium (8.4-10.2) mg/dL Total Bilirubin (0.2-1.3) mg/dL AST (17-59) U/L ALT (0-50) U/L Alkaline Phosphatase (38-126) U/L Creatine Kinase (55-170) U/L Troponin I (0.000-0.034) ng/mL NT-Pro-B Natriuret Pep (<300) pg/mL Serum Total Protein (6.3-8.2) g/dL Albumin (3.5-5.0) g/dL Lipase 67 (23-300) U/L - Radiology Impressions Radiology Exams & Impressions: Radiology Procedures Category Date Time Status ABDOMEN AND PELVIS W/0 CONTRAS [CT] Stat Exams 12/01/22 22:32 Completed CHEST 1 VIEW (PORTABLE) Stat Exams 12/01/22 21:[address] Abd/pelvis: Fecal loaded large bowel, representing severe constipation. No significant acute abnormality. CXR: images reviewed, no infiltrate, effusion, or edema. Assessment/Plan (1) Chest pain, rule out acute myocardial infarction Current Visit: Yes Status: Acute Assessment & Plan: 47 y/o M with h/o CAD, tobacco abuse, HTN, and chronic pain, here with chest pain, abdominal pain, and severe constipation. ## chest pain - patient with h/o known CAD, and here with recurrent progressive episodes of worsening chest pain, usually relieved by rest and nitroglycerin. He has been ruled out for acute AK on two occasions, but would remain high risk given his symptoms and his smoking history. Of note, he had a C in November with no obvious culprit lesion. Stress test done last month but results unknown. He was intolerant of Imdur previously; had considered starting Ranexa if stress test were negative. - reach out to Dr. Oscar Velasquez's office in AM to get results of stress t esting - check serial troponins, EKGs - continue aspirin 81, Plavix 75 - continue liptor 80, Toprol XL 50 ## constipation - severe, likely causing the initial nausea - give enema x1 - Miralax 17 g BID - add dulcolax suppository PRN ## chronic low back pain - on Butrans at home - PRN pain meds for now ## tobacco dependence - no desire to quit. Smokes 1 pack per day. - start nicotine 21 mg patch at patient request ## GERD - continue home omeprazole 20 daily Code Status: Full code Prophylaxis: short stay, encourage ambulation Diet: Regular Dispo: Pending results of prior stress testing Code(s): R07.9 - CHEST PAIN, UNSPECIFIED (2) Constipation Current Visit: Yes Status: Acute Code(s): K59.00 - CONSTIPATION, UNSPECIFIED Telemedicine Encounter - Telemedicine Encounter Telemedicine Encounter: The entirety of this encounter was performed via Telemedicine"
[2022-12-02] MEDS ORDERED: VENTOLIN COMMON CANISTER IH PRN (02:42)
[2022-12-02 05:05] LABS: Hematocrit 41.5 % (42-50); Hemoglobin 13.5 g/dL (12.5-18.0); Mean Cell Volume 87.9 fL (78-100); Mean Corpuscular Hemoglobin 28.6 pg (26-32); Mean Corpuscular Hgb Concent. 32.5 g/dL (32-36); Mean Platelet Volume 11.5 fL (7.5-11.0); Platelet Count 227 x10^3/uL (150-450); Red Blood Count 4.72 x10^6/uL (4.1-5.6); White Blood Count 10.3 x10^3/uL (4.0-10.5)
[2022-12-02 05:20] LABS: ANION GAP 15.2 MEQ/L (5-15); BLOOD UREA NITROGEN 12 mg/dL (9-20); CHLORIDE 105 mmol/L (98-107); Carbon Dioxide 24 mmol/L (22-30); EST GLOMERULAR FILTRATION RATE > 60.0 ML/MIN; Glucose 135 mg/dL (74-106); Potassium 4.4 mmol/L (3.5-5.1); SODIUM 140 mmol/L (137-145)
[2022-12-02 05:48] LABS: Risk Ratio 2.2
--- NOTE | 2022-12-02 08:50 | XRAY ---
Indication: Chest pain. Comparison: September 15, 2022 Portable chest less inflated with new minimal bibasilar discoid atelectasis/scarring. Remaining heart and lungs unremarkable. Bony thorax intact. No acute findings.
[2022-12-02] MEDS ORDERED: ARIPIPRAZOLE 20 MG PO SCH (10:00)
[2022-12-02] MEDS ORDERED: Protonix 40MG Tablet PO SCH (10:00)
[2022-12-02] MEDS ORDERED: NON-FORMULARY ITEM (Omeprazole [Omeprazole] 20 MG Capsule.Dr) PO SCH (10:00)
[2022-12-02] MEDS ORDERED: PLAVIX Tablet PO SCH (10:00)
[2022-12-02] MEDS ORDERED: Miralax Powder 17GM PACKET PO SCH (10:00)
[2022-12-02] MEDS ORDERED: Abilify 10 MG PO SCH (10:00)
[2022-12-02] MEDS ORDERED: ECOTRIN 81 MG PO SCH (10:00)
--- NOTE | 2022-12-02 10:41 | PCM.DS ---
Discharge Summary Date of Admission: 12/02/22 00:02 Date of Discharge: 12/02/22 Admitting Physician: SADIA DUNBAR MD Primary Care Provider: OTTO CHAUDHARI NP Allergies Allergies dicyclomine Allergy (Severe, Verified 12/01/22 21:30) Tightness of Throat doxycycline Allergy (Intermediate, Verified 12/01/22 21:30) Tightness of Throat acetaminophen [From Darvocet-N 100] Allergy (Mild, Verified 12/01/22 21:30) throat swelling propoxyphene napsylate [From Darvocet-N 100] Allergy (Mild, Verified 12/01/22 21:30) throat swelling sulfamethoxazole [From Bactrim DS] Allergy (Verified 12/01/22 21:30) Rash trimethoprim [From Bactrim DS] Allergy (Verified 12/01/22 21:30) Rash Hospital Summary - Hospital Course Hospital Course: is a 47 year old male with h/o CAD, tobacco abuse, and GERD, who presents from skilled nursing with chest pain. Patient notes severe constipation, stating has had no bowel movement in 3 weeks. He initially had onset of severe burning midepigastric pain, radiating to his neck.Of note, patient was admitted to [facility] on 08/18 and 09/15 with similar complaints, ruled out for acute SD each time, and given treatments for COPD exacerbation in September. Patient eventually followed up with his sales merchandising specialist, Dr. Oscar Velasquez, at [facility], and had a stress test done but patient was unable to follow up due to incarceration. Those re sults have been obtained during this hospitalization and findings show NS rhythm, small Q waves in inferior leads, no ischemic ST changes, normal rest and stress perfusion, EF 49%, and mild global hypokinesis of the left ventricle. EKG noted as NS no ST elevations/deviations. Chest pain has resolved. Trops negative. Patient also states that he has an EGD/Colonoscopy scheduled (unknown date due to incarceration) to work up abdominal pain/burning/ pos cologauard (?) test. Patient did have BM with enema with relief. Advised follow up with Dr. Chaudhari (PCP) as well as Dr. Layo Velasquez (cardiology), and GI for planned procedure. Will continue home meds as well as add protonix 20mg daily. New diagnoses: Chest Pain Med changes: None/ Continue home meds Follow-up: PCP/GI/Cardiology Pending tests, follow-up outpatient: EGD/Colonoscopy as scheduled Suggested outpatient tests: none Most recent A/P: Latest assessment/plan ## chest pain - patient with h/o known CAD, and here with recurrent progressive episodes of worsening chest pain, usually relieved by rest and nitroglycerin. He has been ruled out for acute SD on two occasions, but would remain high risk given his symptoms and his smoking history. Of note, he had a LHC in November with no obvious culprit lesion. Stress test done last month but results unknown. He was intolerant of Imdur previously; had considered starting Ranexa if stress test were negative. - reach out to Dr. Oscar Velasquez's office in AM to get results of stress testing - check serial troponins, EKGs - continue aspirin 81, Plavix 75 - continue liptor 80, Toprol XL 50 ## constipation - severe, likely causing the initial nausea - give enema x1 - Miralax 17 g BID - add dulcolax suppository PRN ## chronic low back pain - on Butrans at home - PRN pain meds for now ## tobacco dependence - no desire to quit. Smokes 1 pack per day. - start nicotine 21 mg patch at patient request ## GERD - continue home omeprazole 20 daily - Vitals & Intake/Output Vital Signs: Vital Signs Temperature 96.3 F 12/02/22 07:39 Pulse Rate 74 12/02/22 07:58 Respiratory Rate 14 12/02/22 07:58 Blood Pressure 101/64 12/02/22 07:39 O2 Sat by Pulse Oximetry 90 L 12/02/22 07:58 Intake & Output: Intake & Output 11/29/22 11/30/22 12/01/22 12/02/22 11:59 11:59 11:59 11:59 Intake Total 720 Balance 720 Weight 57.7 kg - Lab Result Diagrams: 12/02/22 04:28 12/02/22 04:28 Lab Results-Last 24 Hrs: Lab Results-Last 24 Hours 12/01/22 12/01/22 12/01/22 Range/Units 21:15 21:15 21:15 WBC 17.3 H (4.0-10.5) x10^3/uL RBC 4.86 (4.1-5.6) x10^6/uL Hgb 14.1 (12.5-18.0) g/dL Hct 42.9 (42-50) % MCV 88.3 (78-100) fL MCH 29.0 (26-32) pg MCHC 32.9 (32-36) g/dL RDW 12.0 (11.5-14.0) % Plt Count 244 (150-450) x10^3/uL MPV 11.4 H (7.5-11.0) fL Gran % 80.7 H (36.0-66.0) % Immature Gran % (Auto) 0.4 (0.00-0.4) % Nucleat RBC Rel Count 0.0 (0.00-0.1) % Eos # (Auto) 0.46 (0-0.5) x10^3/uL Immature Gran # (Auto) 0.07 H (0.00-0.03) x10^3u/L Absolute Lymphs (auto) 1.84 (1.0-4.6) x10^3/uL Absolute Monos (auto) 0.84 (0.0-1.3) x10^3/uL Absolute Nucleated RBC 0.00 (0.00-0.01) x10^3u/L Lymphocytes % 10.7 L (24.0-44.0) % Monocytes % 4.9 (0.0-12.0) % Eosinophils % 2.7 (0.00-5.0) % Basophils % 0.6 (0.0-0.4) % Absolute Granulocytes 13.95 H (1.4-6.9) x10^3/uL Basophils # 0.10 (0-0.4) x10^3/uL Sodium 139 (137-145) mmol/L Potassium 4.2 (3.5-5.1) mmol/L Chloride 104 (98-107) mmol/L Carbon Dioxide 24 (22-30) mmol/L Anion Gap 15.6 H (5-15) MEQ/L BUN 12 (9-20) mg/dL Creatinine 0.60 L (0.66-1.25) mg/dL Estimated GFR > 60.0 ML/MIN Glucose 107 H (74-106) mg/dL Calcium 9.1 (8.4-10.2) mg/dL Total Bilirubin 0.60 (0.2-1.3) mg/dL AST 62 H (17-59) U/L ALT 76 H (0-50) U/L Alkaline Phosphatase 65 (38-126) U/L Creatine Kinase 54 L (55-170) U/L Troponin I < 0.012 (0.000-0.034) ng/mL NT-Pro-B Natriuret Pep 252 (<300) pg/mL Serum Total Protein 7.5 (6.3-8.2) g/dL Albumin 4.7 (3.5-5.0) g/dL Triglycerides (30-150) mg/dL Cholesterol (50-200) mg/dL LDL Cholesterol (30-100) mg/dL HDL Cholesterol (40-60) mg/dL Heart Disease Risk Ratio Lipase (23-300) U/L 12/01/22 12/02/22 12/02/22 Range/Units 22:33 01:50 04:28 WBC (4.0-10.5) x10^3/uL RBC (4.1-5.6) x10^6/uL Hgb (12.5-18.0) g/dL Hct (42-50) % MCV (78-100) fL MCH (26-32) pg MCHC (32-36) g/dL RDW (11.5-14.0) % Plt Count (150-450) x10^3/uL MPV (7.5-11.0) fL Gran % (36.0-66.0) % Immature Gran % (Auto) (0.00-0.4) % Nucleat RBC Rel Count (0.00-0.1) % Eos # (Auto) (0-0.5) x10^3/uL Immature Gran # (Auto) (0.00-0.03) x10^3u/L Absolute Lymphs (auto) (1.0-4.6) x10^3/uL Absolute Monos (auto) (0.0-1.3) x10^3/uL Absolute Nucleated RBC (0.00-0.01) x10^3u/L Lymphocytes % (24.0-44.0) % Monocytes % (0.0-12.0) % Eosinophils % (0.00-5.0) % Basophils % (0.0-0.4) % Absolute Granulocytes (1.4-6.9) x10^3/uL Basophils # (0-0.4) x10^3/uL Sodium (137-145) mmol/L Potassium (3.5-5.1) mmol/L Chloride (98-107) mmol/L Carbon Dioxide (22-30) mmol/L Anion Gap (5-15) MEQ/L BUN (9-20) mg/dL Creatinine (0.66-1.25) mg/dL Estimated GFR ML/MIN Glucose (74-106) mg/dL Calcium (8.4-10.2) mg/dL Total Bilirubin (0.2-1.3) mg/dL AST (17-59) U/L ALT (0-50) U/L Alkaline Phosphatase (38-126) U/L Creatine Kinase (55-170) U/L Troponin I < 0.012 (0.000-0.034) ng/mL NT-Pro-B Natriuret Pep (<300) pg/mL Serum Total Protein (6.3-8.2) g/dL Albumin (3.5-5.0) g/dL Triglycerides 46 (30-150) mg/dL Cholesterol 71 (50-200) mg/dL LDL Cholesterol 41 (30-100) mg/dL HDL Cholesterol 32 L (40-60) mg/dL Heart Disease Risk Ratio 2.2 Lipase 67 (23-300) U/L 12/02/22 12/02/22 12/02/22 Range/Units 04:28 04:28 04:30 WBC 10.3 (4.0-10.5) x10^3/uL RBC 4.72 (4.1-5.6) x10^6/uL Hgb 13.5 (12.5-18.0) g/dL Hct 41.5 L (42-50) % MCV 87.9 (78-100) fL MCH 28.6 (26-32) pg MCHC 32.5 (32-36) g/dL RDW 12.0 (11.5-14.0) % Plt Count 227 (150-450) x10^3/uL MPV 11.5 H (7.5-11.0) fL Gran % (36.0-66.0) % Immature Gran % (Auto) (0.00-0.4) % Nucleat RBC Rel Count (0.00-0.1) % Eos # (Auto) (0-0.5) x10^3/uL Immature Gran # (Auto) (0.00-0.03) x10^3u/L Absolute Lymphs (auto) (1.0-4.6) x10^3/uL Absolute Monos (auto) (0.0-1.3) x10^3/uL Absolute Nucleated RBC (0.00-0.01) x10^3u/L Lymphocytes % (24.0-44.0) % Monocytes % (0.0-12.0) % Eosinophils % (0.00-5.0) % Basophils % (0.0-0.4) % Absolute Granulocytes (1.4-6.9) x10^3/uL Basophils # (0-0.4) x10^3/uL Sodium 140 (137-145) mmol/L Potassium 4.4 (3.5-5.1) mmol/L Chloride 105 (98-107) mmol/L Carbon Dioxide 24 (22-30) mmol/L Anion Gap 15.2 H (5-15) MEQ/L BUN 12 (9-20) mg/dL Creatinine 0.80 (0.66-1.25) mg/dL Estimated GFR > 60.0 ML/MIN Glucose 135 H (74-106) mg/dL Calcium 9.0 (8.4-10.2) mg/dL Total Bilirubin (0.2-1.3) mg/dL AST (17-59) U/L ALT (0-50) U/L Alkaline Phosphatase (38-126) U/L Creatine Kinase (55-170) U/L Troponin I < 0.012 (0.000-0.034) ng/mL NT-Pro-B Natriuret Pep (<300) pg/mL Serum Total Protein (6.3-8.2) g/dL Albumin (3.5-5.0) g/dL Triglycerides (30-150) mg/dL Cholesterol (50-200) mg/dL LDL Cholesterol (30-100) mg/dL HDL Cholesterol (40-60) mg/dL Heart Disease Risk Ratio Lipase (23-300) U/L - Radiology Exams Ordered Rad Exams-Entire Visit: Radiology Procedures Category Date Time Status ABDOMEN AND PELVIS W/0 CONTRAS [CT] Stat Exams 12/01/22 22:32 Completed CHEST 1 VIEW (PORTABLE) Stat Exams 12/01/22 21:27 Completed - Procedures and Test Procedures and Tests throughout Hospitalization: Therapy Orders & Screens 12/02/22 02:41 Respiratory Therapy Assessment DAILY Comment: Diagnosis: Pain rule out acute SD Discharge Exam General Appearance: no apparent distress Neurologic Exam: alert, oriented x 3, cooperative Eye Exam: PERRL Ears, Nose, Throat Exam: normal ENT inspection Neck Exam: normal inspection Respiratory Exam: normal breath sounds Cardiovascular Exam: regular rate/rhythm, normal heart sounds Gastrointestinal/Abdomen Exam: soft, normal bowel sounds Extremity Exam: normal inspection Final Diagnosis/Problem List - Final Discharge Diagnosis/Problem (1) Smoker Current Visit: Yes Status: Chronic Assessment & Plan: Advised cessation Code(s): F17.200 - NICOTINE DEPENDENCE, UNSPECIFIED, UNCOMPLICATED (2) Chest pain, rule out acute myocardial infarction Current Visit: Yes Status: Resolved Code(s): R07.9 - CHEST PAIN, UNSPECIFIED (3) Constipation Current Visit: Yes Status: Resolved Code(s): K59.00 - CONSTIPATION, UNSPECIFIED (4) Degenerative disc disease Current Visit: No Status: Chronic Code(s): UYS7945 - (5) GERD (gastroesophageal reflux disease) Current Visit: No Status: Suspected Code(s): K21.9 - GASTRO-ESOPHAGEAL REFLUX DISEASE WITHOUT ESOPHAGITIS - Discharge Disposition: XFER OTHER Condition: Stable Prescriptions: Continue Aspirin EC 81 mg [Ecotrin 81 mg] 81 mg PO DAILY Clopidogrel Bisulfate [Plavix] 75 mg PO DAILY Buprenorphine HCl/Naloxone HCl [Suboxone 8 mg-2 mg Sl Film] 1.2 tab SL BID Albuterol Sulfate [Albuterol Sulfate Hfa] 8.5 gm IH BID PRN PRN PRN Reason: Shortness Of Breath/Wheezing Atorvastatin Calcium 80 mg PO QHS #30 tablet Omeprazole 20 mg PO DAILY Nitroglycerin 0.4 mg Tablet [Nitrostat 0.4 MG Tablet] 0.4 mg SL Q5MIN PRN MR X 3 PRN PRN Reason: Chest Pain Metoprolol Succinate 50 mg [Toprol Xl 50 MG] 50 mg PO HS Amlodipine Besylate 5 mg [Norvasc 5 mg] 5 mg PO HS Albuterol 2.5 mg/3 ml Neb [Proventil 2.5 mg/3 ml Neb] 2.5 mg IH BID PRN Ondansetron ODT 4 MG [Zofran Odt 4 mg] 4 mg PO BID PRN PRN PRN Reason: Nausea ARIPiprazole [Aripiprazole] 20 mg PO DAILY Amoxicillin 500 mg PO BID Follow up with: OTTO CHAUDHARI, DEDE, RN [Primary Care Provider] - OSCAR VELASQUEZ [CONSULTING PHYSICIAN] -
[2022-12-02 11:57] VITALS: BP 114/68; PULSE 77; RESP 16; TEMP 96.8; O2SAT 95
[2022-12-02] MEDS ORDERED: NON-FORMULARY ITEM (Atorvastatin Calcium [Atorvastatin Calcium] 80 MG Tablet) PO SCH (22:00)
[2022-12-02] MEDS ORDERED: ZOCOR 20MG PO SCH (22:00)
[2022-12-02] MEDS ORDERED: Toprol Xl 50 MG PO SCH (22:00)
[2022-12-02] MEDS ORDERED: NORVASC 5 MG PO SCH (22:00)
== END 2022-12-02 13:48 ==
LOC: ED 20:49 → MED SURG 12-02 00:02
PROVIDERS: ADMIT Internal Medicine; ATTEND Internal Medicine
DX: R07.9 Chest pain, unspecified (principal); I25.10 Atherosclerotic heart disease of native coronary artery without angina pectoris; K21.9 Gastro-esophageal reflux disease without esophagitis; F17.200 Nicotine dependence, unspecified, uncomplicated; M54.50 Low back pain, unspecified; K59.00 Constipation, unspecified; I10 Essential (primary) hypertension; Z79.01 Long term (current) use of anticoagulants; Z79.899 Other long term (current) drug therapy; Z20.828 Contact with and (suspected) exposure to other viral communicable diseases
CPT/HCPCS: 36000; 36415; 71045; 74176; 80048; 80053; 80061; 82550; 83690; 83721; 83735; 83880; 84484; 85025; 85027; 93005; 93041; 93268; 94760; 96374; 96375; 99284; G0378; Q3014; J2270; J2405; A9270-GY

== ENCOUNTER 2024-01-27 20:41 | Emergency (ER) | payer OTHER ==
[2024-01-27 20:52] VITALS: TEMP 97.6
[2024-01-27] MEDS ORDERED: TORAdol 30 mg Injection ONE (21:12)
[2024-01-27] MEDS: TORAdol 30 mg Injection IM ONE (21:14)
[2024-01-27 21:43] VITALS: RESP 16; O2SAT 97
[2024-01-27 21:43] LABS: Group A Strep NOT DETECTED (NEGATIVE)
[2024-01-27 21:55] LABS: INFLUENZA A NEGATIVE (NEGATIVE); INFLUENZA B NEGATIVE (NEGATIVE); RESPIRATORY SYNCTIAL VIRUS NEGATIVE (NEGATIVE)
[2024-01-27 21:56] LABS: SARS-CoV-2 Xpert Express POSITIVE (NEGATIVE)
--- NOTE | 2024-01-27 22:11 | ERPHSYRPT ---
- History of Present Illness Time Seen by Provider: 01/27/24 20:47 Source: patient Exam Limitations: no limitations Patient Subjective Stated Complaint: pt states "I tested postive for covid today." Triage Nursing Assessment: pt ambulatory to bed by self, pt alert and oriented x3, skin pwd, pt tested postive for covid today and states "I am so tired and my head is pounding." pt afebrile at this time, vitals wnl, pt seems to be in no apparent distress. Physician History: 48 years old male presented in the ER with flulike symptoms since morning. Patient reports having aches and pains all over, feeling some stuffiness in the nose, minimal nonproductive cough, feeling weak fatigued tired and sleepy. Patient denies any abdominal pain nausea or vomiting. Checked his home COVID which was positive. Patient is here for confirmation. No difficulty breathing. No fever or chills reported. Allergies/Adverse Reactions: doxycycline Allergy (Intermediate, Verified 01/27/24 20:57) Tightness of Throat acetaminophen [From Darvocet-N 100] Allergy (Mild, Verified 01/27/24 20:57) throat swelling propoxyphene napsylate [From Darvocet-N 100] Allergy (Mild, Verified 01/27/24 20:57) throat swelling sulfamethoxazole [From Bactrim DS] Allergy (Verified 01/27/24 20:57) Rash trimethoprim [From Bactrim DS] Allergy (Verified 01/27/24 20:57) Rash Home Medications: Buprenorphine HCl/Naloxone HCl [Suboxone 8 mg-2 mg Sl Film] 1.2 tab SL BID 08/17/22 [History] Metoprolol Succinate 50 mg [Toprol Xl 50 MG] 50 mg PO HS 12/01/22 [History] Omeprazole 20 mg PO DAILY 12/01/22 [History] Hx Tetanus, Diphtheria Vaccination/Date Given: Yes Hx Influenza Vaccination/Date Given: No Hx Pneumococcal Vaccination/Date Given: No Travel Risk - International Travel Have you traveled outside of the country in past 3 weeks: No - Emerging Infectious Disease Are you exhibiting symptoms associated with any current EIDs: Yes Symptoms: Headaches/Body Aches/ - Review of Systems Constitutional: Fatigue Eyes: No Symptoms Ears, Nose, & Throat: Nose Congestion Respiratory: Cough Cardiac: No Symptoms Abdominal/Gastrointestinal: No Symptoms Genitourinary Symptoms: No Symptoms Musculoskeletal: Myalgias Neurological: Headache Endocrine: No Symptoms Hematologic/Lymphatic: No Symptoms - Past Medical History Pertinent Past Medical History: Yes Neurological History: Peripheral Neuropathy ENT History: No Pertinent History Cardiac History: Coronary Artery Disease, Hypertension, Myocardial Infarction (CA) Respiratory History: Asthma Endocrine Medical History: No Pertinent History Musculoskeletal History: Arthritis GI Medical History: No Pertinent History History: No Pertinent History Psycho-Social History: Depression, Other Male Reproductive Disorders: No Pertinent History Other Medical History: ADHD, last CA in August 2022 - Past Surgical History Past Surgical History: Yes Neuro Surgical History: No Pertinent History Cardiac: Cardiac Catheterization Respiratory: No Pertinent History Gastrointestinal: No Pertinent History Genitourinary: No Pertinent History Musculoskeletal: Orthopedic Surgery Male Surgical History: Vasectomy Other Surgical History: carpel tunnel, failed heart cath , BB removed from left foot, vasectomy, attempt at heart cath (patient states they could not complete the procedure) Significant Family History: heart disease (father, mother, and brother all from CAD) - Social History Smoking Status: Current some day smoker How long have you smoked: 34 years Exposure to second hand smoke: No Drug Use: none Patient Lives Alone: No (incarcerated) - Social Determinants of Health Will the patient participate in the screening: Yes Do you worry about a steady place to live?: No Do you have any problems with any of the following?: No known problems In the past 12 months,have you had to go without utilities?: No Transportation Issues: No Has anyone in your support network made you feel unsafe?: No Have you or anyone in your house had to go without enough: No - Nursing Vital Signs Nursing Vital Signs: Initial Vital Signs Temperature 97.6 F 01/27/24 20:51 Pulse Rate 98 H 01/27/24 20:51 Respiratory Rate 18 01/27/24 20:51 Blood Pressure 123/81 01/27/24 20:51 O2 Sat by Pulse Oximetry 99 01/27/24 20:51 Pain Scale Pain Intensity 9 - Physical Exam General Appearance: no apparent distress, alert Eye Exam: PERRL/EOMI Ears, Nose, Throat Exam: moist mucous membranes, pharyngeal erythema Neck Exam: normal inspection, full range of motion Respiratory Exam: normal breath sounds, lungs clear Cardiovascular Exam: regular rate/rhythm, normal heart sounds Gastrointestinal/Abdomen Exam: soft, No tenderness Back Exam: normal inspection Extremity Exam: normal inspection, normal range of motion Neurologic Exam: alert, oriented x 3, 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, 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 Skin Exam: normal color SpO2 Interpretation: normal SpO2: 97 O2 Delivery: Room Air Ordered Tests: Active Orders 24 hr Category Date Time Status CHEST 1 VIEW (PORTABLE) Stat Exams 01/27/24 21:52 Taken Medication Summary Discontinued Medications Generic Name Dose Route Start Last Admin Trade Name Criselda PRN Reason Stop Dose Admin Ketorolac Tromethamine 30 mg 01/27/24 21:05 01/27/24 21:14 Ketorolac Tromethamine 30 Mg/Ml Inj IM 01/27/24 21:06 30 mg STAT ONE Administration Ketorolac Tromethamine Confirm 01/27/24 21:12 Ketorolac Tromethamine 30 Mg/Ml Inj Administered 01/27/24 21:13 Dose 30 mg .ROUTE .STK-MED ONE Lab/Rad Data: Laboratory Results 01/27/24 Range/Units 21:10 Influenza Type A Ag NEGATIVE (NEGATIVE) Influenza Type B Ag NEGATIVE (NEGATIVE) RSV (PCR) NEGATIVE (NEGATIVE) SARS-CoV-2 (PCR) POSITIVE A (NEGATIVE) Group A Strep Antibody NOT DETECTED (NEGATIVE) - Progress Progress: improved, re-examined Air Movement: good Progress Note: 01/27/24 22:09 48-year-old is evaluated in the ER for flulike symptoms since morning. Patient has a positive COVID test at home. Complaining of some headache. No signs of meningismus. Nonfocal neuroexam. Lungs clear to auscultation. X-rays are negative for acute cardiopulmonary findings reviewed by me, official report is pending. Patient oxygen saturation is around 98% on room air. Is given Toradol for symptomatic relief, on reevaluation feeling better. Patient has a positive COVID-19. Recommended supportive care and outpatient follow-up. Discussed signs symptoms of worsening needing return to ER which she seems understanding. Stable for discharge. Blood Culture(s) Obtained: No Antibiotics given: No Counseled pt/family regarding: lab results, diagnosis, need for follow-up, rad results Medical Desision Making - Diagnostic Testing Diagnostic test were ordered, analyzed, and reviewed by me: Yes Radiological Interpretation: Interpreted by me, Reviewed by me - Risk of complications The pt has a mod risk of morbidity or mortality based on: Need for prescription drug management - Departure Departure Disposition: Home Clinical Impression: COVID-19 virus detected, Viral syndrome Condition: Stable Critical Care Time: No Referrals: ANITHA ELLIS DO [Primary Care Provider] - Follow up with PCP 1 day Instructions: COVID-19 in adults - Discharge instructions Additional Instructions: Take Tylenol/ibuprofen as needed. Follow-up with primary care for reevaluation. Return to ER for persistent high-grade fever, difficulty breathing, intractable headache, intractable nausea vomiting diarrhea etc.
[2024-01-27 22:13] VITALS: BP 108/70; PULSE 100
--- NOTE | 2024-01-28 09:20 | XRAY ---
Indication: Cough. Positive Covid 19. Comparison: December 01, 2022 Portable chest is now clear. Heart not enlarged. Bony thorax intact. No new/acute findings.
== END 2024-01-27 22:24 | disposition home or self-care (01) ==
LOC: ED 20:41
DX: U07.1 COVID-19 (principal); M79.10 Myalgia, unspecified site; R05.1 Acute cough; R53.1 Weakness; R53.83 Other fatigue; I10 Essential (primary) hypertension; Z79.891 Long term (current) use of opiate analgesic; Z79.899 Other long term (current) drug therapy; Z72.0 Tobacco use
CPT/HCPCS: 0241U; 71045; 87651; 96372; 99283; J1885